=== PATIENT | male | born 1935 | race Caucasian/White ===

== ENCOUNTER → 2016-12-19 | Outpatient (CLI) | payer MEDICARE, OTHER ==
--- NOTE | 2016-12-19 09:11 | XR ---
EXAMINATION TYPE: XR chest 2V DATE OF EXAM: 12/19/2016 COMPARISON: 12/07/2014 TECHNIQUE: PA and lateral views submitted. HISTORY: Productive cough FINDINGS: The lungs are clear and there is no pneumothorax, pleural effusion, or focal pneumonia. Hyperinflat ion suggests COPD. Scoliotic curvature the spine noted and there is biapical pleural thickening and l ikely bullous disease. Arthropathy of the shoulders. Degenerative changes of the spine noted. Ill-def ined nodule in the right suprahilar region. IMPRESSION: 1. Findings are suggestive of COPD no definite acute infiltrate. Ill-defined nodule right suprahilar region. This could be related to superimposed structures however, recommend CT chest.
== END ==
LOC: RADXRMAIN 08:47
PROVIDERS: ATTEND Family Medicine
DX: R61 Generalized hyperhidrosis (principal)
CPT/HCPCS: 71020

== ENCOUNTER → 2016-12-31 | Outpatient (CLI) | payer MEDICARE, OTHER ==
--- NOTE | 2016-12-31 10:36 | CT ---
EXAMINATION TYPE: CT abdomen pelvis wo con DATE OF EXAM: 12/31/2016 COMPARISON: Prior CT abdomen pelvis 09/16/2010 HISTORY: Kidney stone CT DLP: 298.40 mGycm Automated exposure control for dose reduction was used. TECHNIQUE: Helical acquisition of images from the lung bases through the pelvis. FINDINGS: LUNG BASES: No significant abnormality is appreciated. AORTA: Abdominal aorta measures approximately 3.3 cm in the infrarenal location shows atheromatous c hange. Lack of contrast could compromise sensitivity. LIVER/GB: No significant abnormality is appreciated. PANCREAS: No significant abnormality is seen. SPLEEN: No significant abnormality is seen. ADRENALS: No significant abnormality is seen. KIDNEYS: There are punctate calcifications bilaterally, approximately 3-4 on the right, lower pole ca lculus on the left all measuring only 1 to 2 mm in size. No ureteral calcification or hydronephrosis. REPRODUCTIVE ORGANS: Prostate is enlarged. URINARY BLADDER: Urinary bladder shows wall thickening possibly due to chronic bladder outlet obstru ction. BOWEL: Extensive diverticular changes associated with the sigmoid colon. No evident bowel obstructio n. FREE AIR: No Free Air is visible. ASCITES: None visible. PELVIC ADENOPATHY: None visualized. RETROPERITONEAL ADENOPATHY: No Retroperitoneal Adenopathy visible. OSSEOUS STRUCTURES: Degenerative disc changes in the visualized spine. External iliac artery on the right is decreased in size. IMPRESSION: BILATERAL NONOBSTRUCTIVE NEPHROLITHIASIS IS SUSPECTED. INFRARENAL ABDOMINAL AORTIC ECTASIA. FOLLOW-UP SUGGESTED. NONCONTRAST EXAM. DIVERTICULOSIS. There may be an occlusion involving the pelvic arterial supply on the right.
== END | disposition home or self-care (01) ==
LOC: RADCTMAIN 08:23
PROVIDERS: ATTEND Family Medicine
DX: K57.30 Diverticulosis of large intestine without perforation or abscess without bleeding (principal); I77.811 Abdominal aortic ectasia
CPT/HCPCS: 74176

== ENCOUNTER 2023-10-14 22:00 | Inpatient (IN) | payer MEDICARE, OTHER ==
--- NOTE | 2023-10-14 22:28 | ED ---
General Adult HPI - General Stated complaint: GEE Time Seen by Provider: 10/14/23 22:02 - History of Present Illness Initial comments: Dictation was produced using [employer] dictation software. please excuse any grammatical, word or spelling errors. Chief Complaint: 87-year-old male presents to the emergency department for hypoxia History of Present Illness: 87-year-old male brought in from home by EMS. Apparently there was a wellness check that was called on behalf of patient. Patient was eval by EMS found to be hypoxic. Patient lives at home by himself he has history of dementia. Continues to smoke has history of COPD wears 3 L nasal cannula at baseline. Patient denies any acute complaints states that he does feel short of breath. Denies any cough. Denies any fever or constitutional symptoms. Per EMS patient was hypoxic into the 80s on his usual home oxygen. The ROS documented in this emergency department record has been reviewed and confirmed by me. Those systems with pertinent positive or negative responses have been documented in the HPI. All other systems are other negative and/or noncontributory. - Related Data Allergies Allergy/AdvReac Type Severity Reaction Status Date / Time No Known Allergies Allergy Verified 10/14/23 22:52 Review of Systems ROS Statement: Those systems with pertinent positive or pertinent negative responses have been documented in the HPI. ROS Other: All systems not noted in ROS Statement are negative. General Exam - General Exam Comments Initial Comments: PHYSICAL EXAM: General Impression: Alert and oriented x3, not in acute distress HEENT: Normocephalic atraumatic, extra-ocular movements intact, pupils equal and reactive to light bilaterally, mucous membranes moist. Cardiovascular: Heart regular rate and rhythm Chest: Diffuse wheezing Abdomen: abdomen soft, non-tender, non-distended, no organomegaly Musculoskeletal: Pulses present and equal in all extremities, no peripheral ed catrachito Motor: no focal deficits noted Neurological: CN II-XII grossly intact, no focal motor or sensory deficits noted Skin: Intact with no visualized rashes Psych: Normal affect and mood Course Vital Signs 10/14/23 10/14/23 10/14/23 22:28 22:40 23:16 Temperature 97.6 F Pulse Rate 75 79 87 Respiratory 24 Rate Blood Pressure 149/88 O2 Sat by Pulse 93 L Oximetry 10/15/23 00:33 Temperature Pulse Rate 80 Respiratory 22 Rate Blood Pressure 131/61 O2 Sat by Pulse 80 L Oximetry - Reevaluation(s) Reevaluation #1: 10/15/23 02:16 Case discussed with nephrology on-call, Dr. Wills. Labs and clinical presentation discussed. Dr. Wills requested that BMP be repeated 2 hours after hyperkalemia cocktail and that he will be called with the results of repeat BMP. EKG Findings - EKG Comments: EKG Findings:: My EKG interpretation: Ventricular rate 75, right bundle branch block,. Will 227, cures 143, QTc 417. No MT prolongation, no QTC prolongation, no ST or T-wave changes noted. No old EKG for comparison. Medical Decision Making - Medical Decision Making Was pt. sent in by a medical professional or institution (, PA, LUBRICATION WORKER, urgent care, hospital, or shelter...) When possible be specific @ -No Did you speak to anyone other than the patient for history (EMS, parent, family, police, friend...)? What history was obtained from this source @ -No Did you review nursing and triage notes (agree or disagree)? Why? @ -I reviewed and agree with nursing and triage notes Were old charts reviewed (outside hosp., previous admission, EMS record, old EKG, old radiological studies, urgent care reports/EKG's, shelter records)? Report findings @ -No old charts were reviewed Differential Diagnosis (chest pain, altered mental status, abdominal pain women, abdominal pain men, vaginal bleeding, musculoskeletal, weakness, fever, dyspnea, syncope, headache, dizziness, GI bleed, back pain, seizure, CVA, palpatations, mental health)? @ -Differential Dyspnea: Coronary syndrome, arrhythmia, tamponade, asthma, COPD, pulmonary embolism, pneumonia, pneumothorax, pulmonary effusion, anaphylaxis, diabetic ketoacidosis, flailed chest, pulmonary contusion, diaphragmatic rupture, anemia, neuromuscular, this is not meant to be an all-inclusive list. EKG interpreted by me (3pts min.). @ -See above X-rays interpreted by me (1pt min.). @ -X-ray shows pleural effusion to the right lung base pulmonary edema CT interpreted by me (1pt min.). @ -None done U/S interpreted by me (1pt. min.). @ -None done What testing was considered but not performed or refused? (CT, X-rays, U/S, labs)? Why? @ -None What meds were considered but not given or refused? Why? @ -None Did you discuss the management of the patient with other professionals (professionals i.e. , PA, LUBRICATION WORKER, lab, RT, psych nurse, social human services assistants, physical medicine teacher, teacher, systems support officer, skilled nursing case manager)? Give summary @ -see above Was smoking cessation discussed for >3mins.? @ -No Was critical care preformed (if so, how long)? @ -Yes, 33 minutes Were there social determinants of health that impacted care today? How? (Homelessness, low income, unemployed, alcoholism, drug addiction, transportation, low edu. Level, literacy, decrease access to med. care, residential, rehab)? @ -No Was there de-escalation of care discussed even if they declined (Discuss DNR or withdrawal of care, Hospice)? DNR status @ -No What co-morbidities impacted this encounter? (DM, HTN, Smoking, COPD, CAD, Cancer, CVA, ARF, Chemo, Hep., AIDS, mental health diagnosis, sleep apnea, morbid obesity)? @ -None Was patient admitted / discharged? Hospital course, mention meds given and route, prescriptions, significant lab abnormalities, going to OR and other pertinent info. @ -87-year-old male presents to the emergency department after being found dyspneic hypoxic wellness tract by EMS. Vital signs upon arrival are within acceptable limits. Laboratory evaluation obtained. CBC within acceptable limits. Metabolic panel shows potassium of 8.1, creatinine of 6.62 with a BUN of 67. Acidotic with a bicarb of 12. Elevated troponin 0.049 with BNP of 36,500. Viral testing is negative. Chest x-ray shows findings concerning for heart failure. Case discussed with nephrology who will be on board. Patient given hyperkalemia cocktail. Patient admitted with consultation to nephrology and pulmonology. Undiagnosed new problem with uncertain prognosis? @ -No Drug Therapy requiring intensive monitoring for toxicity (Heparin, Nitro, Insulin, Cardizem)? @ -No Were any procedures done? @ -No Diagnosis/symptom? Acute, or Chronic, or Acute on Chronic? Uncomplicated (without systemic symptoms) or Complicated (systemic symptoms)? @ -1. Acute kidney injury complicated by hyperkalemia, 2. COPD exacerbation with hypoxic respiratory failure Side effects of treatment? @ -No Exacerbation, Progression, or Severe Exacerbation? @ -No Poses a threat to life or bodily function? How? (Chest pain, USA, MS, pneumonia, PE, COPD, DKA, ARF, appy, cholecystitis, CVA, Diverticulitis, Homicidal, Delores cidal, threat to staff... and all critical care pts) @ -yes - Lab Data Result diagrams: 10/14/23 22:06 10/14/23 23:59 Lab Results 10/14/23 10/14/23 10/14/23 Range/Units 22:06 22:06 22:06 WBC 6.2 (3.8-10.6) k/uL RBC 2.81 L (4.30-5.90) m/uL Hgb 8.8 L (13.0-17.5) gm/dL Hct 30.6 L (39.0-53.0) % MCV 108.9 H (80.0-100.0) fL MCH 31.2 (25.0-35.0) pg MCHC 28.6 L (31.0-37.0) g/dL RDW 15.1 (11.5-15.5) % Plt Count 141 L (150-450) k/uL MPV 8.7 Neutrophils % 81 % Lymphocytes % 10 % Monocytes % 6 % Eosinophils % 1 % Basophils % 0 % Neutrophils # 5.0 (1.3-7.7) k/uL Lymphocytes # 0.6 L (1.0-4.8) k/uL Monocytes # 0.4 (0-1.0) k/uL Eosinophils # 0.1 (0-0.7) k/uL Basophils # 0.0 (0-0.2) k/uL Manual Slide Review Performed Hypochromasia Marked Macrocytosis Marked A Sodium 140 (137-145) mmol/L Potassium 8.1 H* (3.5-5.1) mmol/L Chloride 117 H (98-107) mmol/L Carbon Dioxide 12 L (22-30) mmol/L Anion Gap 11 mmol/L BUN 67 H (9-20) mg/dL Creatinine 6.62 H (0.66-1.25) mg/dL Est GFR (CKD-EPI)AfAm 8 (>60 ml/min/1.73 sqM) Est GFR (CKD-EPI)NonAf 7 (>60 ml/min/1.73 sqM) Glucose 109 H (74-99) mg/dL Plasma Lactic Acid Alex 1.1 (0.7-2.0) mmol/L Calcium 8.0 L (8.4-10.2) mg/dL Magnesium 2.5 H (1.6-2.3) mg/dL Troponin I (0.000-0.034) ng/mL NT-Pro-B Natriuret Pep 51205 pg/mL Influenza Type A (PCR) (Not Detectd) Influenza Type B (PCR) (Not Detectd) RSV (PCR) (Not Detectd) SARS-CoV-2 (PCR) (Not Detectd) 10/14/23 10/14/23 10/14/23 Range/Units 22:06 22:56 23:59 WBC (3.8-10.6) k/uL RBC (4.30-5.90) m/uL Hgb (13.0-17.5) gm/dL Hct (39.0-53.0) % MCV (80.0-100.0) fL MCH (25.0-35.0) pg MCHC (31.0-37.0) g/dL RDW (11.5-15.5) % Plt Count (150-450) k/uL MPV Neutrophils % % Lymphocytes % % Monocytes % % Eosinophils % % Basophils % % Neutrophils # (1.3-7.7) k/uL Lymphocytes # (1.0-4.8) k/uL Monocytes # (0-1.0) k/uL Eosinophils # (0-0.7) k/uL Basophils # (0-0.2) k/uL Manual Slide Review Hypochromasia Macrocytosis Sodium (137-145) mmol/L Potassium 7.4 H* (3.5-5.1) mmol/L Chloride (98-107) mmol/L Carbon Dioxide (22-30) mmol/L Anion Gap mmol/L BUN (9-20) mg/dL Creatinine (0.66-1.25) mg/dL Est GFR (CKD-EPI)AfAm (>60 ml/min/1.73 sqM) Est GFR (CKD-EPI)NonAf (>60 ml/min/1.73 sqM) Glucose (74-99) mg/dL Plasma Lactic Acid Alex (0.7-2.0) mmol/L Calcium (8.4-10.2) mg/dL Magnesium (1.6-2.3) mg/dL Troponin I 0.049 H* (0.000-0.034) ng/mL NT-Pro-B Natriuret Pep pg/mL Influenza Type A (PCR) Not Detected (Not Detectd) Influenza Type B (PCR) Not Detected (Not Detectd) RSV (PCR) Not Detected (Not Detectd) SARS-CoV-2 (PCR) Not Detected (Not Detectd) Disposition Clinical Impression: NAILA (acute kidney injury), Hyperkalemia, COPD exacerbation Disposition: ADMITTED IP TO THIS HOSP Condition: Critical Referrals: None,Stated [REFERRING] - 1-2 days Decision Time: 02:20
[2023-10-14] MEDS: ALBUTEROL NEBULIZED 2.5 MG/3 ML INHALATION STA (22:39)
[2023-10-14] MEDS: IPRATROPIUM 0.5 MG/2.5 ML NEBU INHALATION STA (22:39)
[2023-10-14 22:49] LABS: Basophils % (A) 0 %; Eosinophils # (A) 0.1 k/uL (0-0.7); Eosinophils % (A) 1 %; HCT 30.6 % (39.0-53.0); HGB 8.8 gm/dL (13.0-17.5); Hypochromasia Marked; Lymphocytes # (A) 0.6 k/uL (1.0-4.8); Lymphocytes % (A) 10 %; MCH 31.2 pg (25.0-35.0); MCHC 28.6 g/dL (31.0-37.0); MCV 108.9 fL (80.0-100.0); Macrocytosis Marked; Mean Platelet Volume 8.7; Monocytes # (A) 0.4 k/uL (0-1.0); Monocytes % (A) 6 %; Neutrophils % (A) 81 %; Platelet Count 141 k/uL (150-450); RBC 2.81 m/uL (4.30-5.90); RDW 15.1 % (11.5-15.5); WBC 6.2 k/uL (3.8-10.6)
[2023-10-14] MEDS: DEXAMETHASONE SOD PHOSPHATE 10 MG/ML 1 ML VIAL IV STA (23:04)
[2023-10-14 23:17] LABS: African American GFR (CKD) 8 (>60 ml/min/1.73 sqM); Anion Gap 11 mmol/L; Blood Urea Nitrogen 67 mg/dL (9-20); Carbon Dioxide 12 mmol/L (22-30); Chloride 117 mmol/L (98-107); Glucose 109 mg/dL (74-99); Non-African American GFR(CKD) 7 (>60 ml/min/1.73 sqM); Sodium 140 mmol/L (137-145)
[2023-10-14 23:37] LABS: Magnesium 2.5 mg/dL (1.6-2.3); Potassium 8.1 mmol/L (3.5-5.1)
[2023-10-15 00:24] LABS: NT-Pro-B-Type Natriuretic Pept 36500 pg/mL
[2023-10-15] MEDS ORDERED: NALOXONE 0.4 MG/ML 1 ML VIAL IV PRN (02:15)
--- NOTE | 2023-10-15 02:23 | XR ---
EXAM: XR Chest, 2 Views CLINICAL HISTORY: ITS.REASON XR Reason: hypoxia TECHNIQUE: Frontal and lateral views of the chest. COMPARISON: CXR 12/19/2016. FINDINGS: Lungs: See below. Pleural space: Small bilateral pleural effusions. Pulmonary vascular congestion. Cardiomegaly. Findings are consistent with congestive heart failure. No pneumothorax. Heart: See above. Mediastinum: Unremarkable. Normal mediastinal contour. Bones/joints: Unremarkable. No acute fracture. IMPRESSION: Small bilateral pleural effusions. Pulmonary vascular congestion. Cardiomegaly. Findings are consistent with congestive heart failure.
[2023-10-15] MEDS: ALBUTEROL NEB (CONC) 2.5 MG/0.5 ML INHALATION ONE (03:10)
[2023-10-15] MEDS: INSULIN REGULAR 100 UNIT/ML VIAL (IV) IV ONE ×2 (04:08→23:20)
[2023-10-15] MEDS: DEXTROSE 50% SYRINGE 50 ML IVP ONE (04:12)
[2023-10-15] MEDS: SODIUM ZIRCONIUM CYCLOSILICATE 10 GM PACKET PO ONE ×2 (04:13→23:22)
[2023-10-15] MEDS: CALCIUM GLUCONATE IN NACL 1 GM in SALINE 1 100ML.BAG IVPB ONE ×2 (04:13→23:21)
[2023-10-15] MEDS: SODIUM CHLORIDE 0.9% 500 ML 500 ML IV STA (04:14)
[2023-10-15] MEDS: SODIUM BICARB 8.4% 50 ML SYR (1 MEQ/ML) IV STA ×3 (04:14→23:21)
[2023-10-15] MEDS: SODIUM CHLORIDE 0.9% 1,000 ML IV SCH (04:14)
--- NOTE | 2023-10-15 06:17 | P.CNPUL ---
History of Present Illness Consult date: 10/15/23 Requesting physician: Markus Urban Reason for consult: COPD Chief complaint: Shortness of breath History of present illness: Patient is an 87-year-old male with past medical history significant for COPD, chronic hypoxemic respiratory failure, hypertension, and kidney stones. He is quite upset to be in the hospital at this time, and he wants to go home. He reportedly lives by himself, and a neighbor had called for a wellbeing check yesterday evening. When EMS arrived, he was found to be hypoxic with an SpO2 of in the low 80s on his baseline 3 L/min nasal cannula. EMS then brought the patient to the emergency department. Patient was found to be in acute renal failure and severely hyperkalemic. BMP: Sodium 140, potassium 8.1, chloride 117, serum bicarb 12, BUN 67, creatinine 6.62, glucose 109. Lactic acid 1.1. Magnesium 2.5. Troponin 0.049. NT proBNP 36,500. CBC: WBC count 6.2, hemoglobin 8.8, hematocrit 30.6, platelets 141. Chest x-ray demonstrates cardiomegaly with pulmonary vascular congestion, small bilateral pleural effusions, and interstitial edema. Since his initial ER presentation, his oxygen demands increased and currently on 8 L/min high flow nasal cannula. He is alert and fully oriented, and currently refusing treatment. He is actually telling me that he is going to call a cab and leave this facility. He has not received any correction for his critically elevated potassium yet. ECG showing normal sinus rhythm with first-degree AV block and hyperacute T waves. I have repeatedly explained how critical his situation is, that if he were to leave at this time, he would likely had a cardiac arrest. He called his son, and I did speak to his son on the telephone about his father's critical condition. He is going to come up to the hospital and see his father. His son is encouraging him to stay in the hospital over the phone. After this, the patient has been more receptive to this interview and my questions. He states that he had kidney stones approximately 3 years ago. Denies NSAID use. Denies any trouble urinating such as dysuria, urinary frequency, hematuria, flank pain. Denies having an enlarged prostate. [id number] bladder scan reveals a minimal amount of urine, 140 cc. Patient is refusing urinary catheter. Nephrology has been consulted for management of his renal failure and hyperkalemia. As far as the patient's respiratory status. He states that has been getting worse over the last couple days, which he attributes to the heat outside. Denies any infectious-like symptoms such as fever, rhinorrhea, sore throat, cough, sputum production, hemoptysis. Denies any nausea or vomiting, diarrhea, or abdominal pain. He has been traveling by car [id number] to [place] over the last several weeks. Denies chest pain. Denies lower extremity swelling. He is audibly wheezing on examination. Does use inhalers and nebulizer at home, but is unsure of medications or doses. Reportedly a current smoker, approximately 1/2 to 1 ppd. Overall prognosis is guarded. Review of Systems REVIEW OF SYSTEMS: CONSTITUTIONAL: Denies any recent significant weight loss or weight gain. EYES: Denies change in vision. EARS, NOSE, MOUTH, THROAT: Denies headaches, denies sore throat. CARDIOVASCULAR: Denies chest pain, palpitations or syncopal episodes. RESPIRATORY: See HPI. GASTROINTESTINAL: Denies change in appetite, abdominal pain, nausea and vomiting, or diarrhea GENITOURINARY: Denies hematuria, denies infections. MUSKULOSKELETAL: Admits chronic lumbar back pain. INTEGUMENTARY: Denies rash, denies eczema. NEUROLOGICAL: Denies recent memory loss, no recent seizure activity. PSYCHIATRIC: Denies anxiety, denies depression. HEMATOLOGIC/LYMPHATIC: Denies anemia, denies enlarged lymph node Past Medical History Past Medical History: COPD Additional Past Medical History / Comment(s): smoker History of Any Multi-Drug Resistant Organisms: None Reported Smoking Status: Current every day smoker Past Alcohol Use History: None Reported Past Drug Use History: None Reported Medications and Allergies Allergies Allergy/AdvReac Type Severity Reaction Status Date / Time No Known Allergies Allergy Verified 10/14/23 22:52 Physical Exam Vitals: Vital Signs Temp Pulse Resp BP Pulse Ox 10/15/23 03:33 80 10/15/23 03:10 76 10/15/23 00:33 80 22 131/61 80 L 10/14/23 23:16 87 10/14/23 22:40 79 10/14/23 22:28 97.6 F 75 24 149/88 93 L Intake and Output 10/14/23 10/14/23 10/15/23 14:59 22:59 06:59 Other: Weight 61.235 kg GENERAL EXAM: Alert, 87-year-old male, appears visually upset HEAD: Normocephalic and atraumatic EYES: Normal reaction of pupils, equal size. NOSE: Clear with pink turbinates. THROAT: No erythema or exudates. NECK: No masses, no JVD. CHEST: No chest wall deformity. LUNGS: Equal air entry with diffuse bilateral wheezing. On 8 L/min high flow nasal cannula. No conversational dyspnea or accessory muscle use while at rest CVS: S1 and S2 normal with no audible murmur, regular rhythm. No extra heart sounds ABDOMEN: No hepatosplenomegaly, active bowel sounds, no guarding or rigidity. SPINE: No scoliosis or deformity. No CVA tenderness. SKIN: No rashes CENTRAL NERVOUS SYSTEM: Alert and fully oriented to person, place, time, and situation. No focal deficits, tone is normal in all 4 extremities. EXTREMITIES: There is mild bilateral nonpitting lower extremity edema. No clubbing, or cyanosis. Peripheral pulses are intact. Results - Laboratory Findings CBC and BMP: 10/14/23 22:06 10/14/23 23:59 Abnormal lab findings: Abnormal Labs 10/14/23 10/14/23 10/14/23 22:06 22:06 22:06 RBC 2.81 L Hgb 8.8 L Hct 30.6 L MCV 108.9 H MCHC 28.6 L Plt Count 141 L Lymphocytes # 0.6 L Macrocytosis Marked A Potassium 8.1 H* Chloride 117 H Carbon Dioxide 12 L BUN 67 H Creatinine 6.62 H Glucose 109 H Calcium 8.0 L Magnesium 2.5 H Troponin I 0.049 H* 10/14/23 23:59 RBC Hgb Hct MCV MCHC Plt Count Lymphocytes # Macrocytosis Potassium 7.4 H* Chloride Carbon Dioxide BUN Creatinine Glucose Calcium Magnesium Troponin I - Diagnostic Findings Chest x-ray: image reviewed Assessment and Plan Assessment: Acute on chronic hypoxemic respiratory failure secondary to fluid overload and acute COPD exacerbation. Chest x-ray demonstrates cardiomegaly with pulmonary vascular congestion, small bilateral pleural effusions, and interstitial edema. Chronic obstructive pulmonary disease Chronic hypoxemic respiratory failure, secondary to above, normally made on 2-3 L/min nasal cannula Current ongoing tobacco dependence Acute kidney injury/failure Acute severe non-anion gap metabolic acidosis, secondary to above Severe hyperkalemia, with EKG changes, treatment is ordered Elevated troponins, in the setting of acute renal failure Anemia, unsure of chronicity, patient denies any overt blood loss History of kidney stones Plan: Patient is now much more receptive to care, and his son is on his way to the hospital. Severe hyperkalemia has been treated with 10 units regular insulin, 1 amp D50 W, 2 amp sodium bicarbonate, 10 mg Lokelma, 1 g calcium gluconate, and concentrated albuterol nebulization. Repeat BMP is pending. May need HD and/or ICU management if no improvement. Nephrology is managing. Obtain ultrasound of the bladder and renals Obtain urinalysis Avoid nephrotoxic agents. Echocardiogram ordered Monitor telemetry Continue supplemental oxygen to maintain oxygen saturation of 88% or greater. Start patient on DuoNebs [id number], Symbicort inhaler, and IV Solu-Medrol Smoking cessation counseling attempted, but patient not receptive at this time. Prognosis is guarded. I have thoroughly explained to the patient his critical condition. If he leaves without treatment, will likely have a life-threatening event, such as cardiac arrest. I have personally seen and examined the patient, performed the documentation and the assessment and plan as written. Number of minutes spent on the visit:20 Time with Patient: Greater than 30
[2023-10-15 07:18] LABS: Appearance,Urine Cloudy (Clear); Bilirubin,Urine Negative (Negative); Blood,Urine Small (Negative); Color,Urine Colorless; Glucose,Urine (UA) 2+ (Negative); Hyaline Casts,Urine 3 /lpf (0-2); Ketones,Urine Trace (Negative); Leukocyte Esterase,Urine Small (Negative); Mucus,Urine Rare /hpf; Nitrite,Urine Negative (Negative); Protein,Urine 3+ (Negative); RBC,Urine 3 /hpf (0-5); Specific Gravity,Urine 1.015 (1.001-1.035); Squamous Epithelial Cell,Urine <1 /hpf (0-4); Urobilinogen,Urine <2.0 mg/dL (<2.0); WBC,Urine 20 /hpf (0-5)
[2023-10-15 07:34] LABS: African American GFR (CKD) 16 (>60 ml/min/1.73 sqM); Anion Gap 7 mmol/L; Blood Urea Nitrogen 43 mg/dL (9-20); Chloride 128 mmol/L (98-107); Glucose 63 mg/dL (74-99); Non-African American GFR(CKD) 13 (>60 ml/min/1.73 sqM); Sodium 140 mmol/L (137-145)
[2023-10-15] MEDS: SYMBICORT 160-4.5 MCG INHALER INHALATION SCH (07:41)
[2023-10-15] MEDS: IPRATROPIUM-ALBUTEROL 3 ML NEB INHALATION SCH (07:41)
[2023-10-15 08:09] LABS: Calcium 5.3 mg/dL (8.4-10.2); Carbon Dioxide 5 mmol/L (22-30)
--- NOTE | 2023-10-15 08:19 | US ---
EXAMINATION TYPE: US renals and bladder DATE OF EXAM: 10/15/2023 COMPARISON: NONE CLINICAL INDICATION: Male, 87 years old with history of acute kidney injury; NAILA EXAM MEASUREMENTS: Right Kidney: 9.1 x 3.3 x 3.2 cm Left Kidney: 8.2 x 3.0 x 2.8 cm *Patient scanned in chair Right Kidney: no evidence of hydronephrosis Left Kidney: small in size. Anechoic lesion lower pole = 1.0 x 0.9 x 1.0cm Bladder: appears wnl Bilateral Jets seen: no There is no evidence for hydronephrosis at this point in time. No nephrolithiasis is seen. No daron s are identified. The urinary bladder is anechoic. Bilateral ureteral jets are seen. Cortical medullary differentiation is maintained. IMPRESSION: 1. No evidence for acute process. 2. Left renal cortical cyst.
[2023-10-15] MEDS: DEXTROSE 5% IN WATER 1,000 ML with SODIUM BICARB (1 MEQ/ML) 150 ML IV SCH (09:10)
[2023-10-15] MEDS: PANTOPRAZOLE 40 MG/10 ML VIAL IV SCH (09:10)
[2023-10-15] MEDS: FUROSEMIDE 10 MG/ML 4 ML VIAL IV STA (09:10)
[2023-10-15] MEDS: methylPREDNISolone SOD SUCCI 40 MG/ML 1 ML VIAL IV SCH (09:10)
--- NOTE | 2023-10-15 10:17 | P.NPCON ---
History of Present Illness - Reason for Consult acute renal failure, chronic renal failure - History of Present Illness Reason for consultation: Acute kidney injury History of present illness: Patient is 87-year-old male seen in renal consultation for acute kidney injury. Patient's creatinine in November 2014 was 1.91. This admission it was elevated at 6.62 and is 3.81 today. Patient's potassium level was elevated at 8.1 and is improved to 5.0 today. Patient remains acidotic with a bicarb level of 5 today. Patient did receive a liter of normal saline bolus and then received dose of 40 mg IV Lasix this morning. Chest x-ray suggestive of vascular congestion. Patient lives by himself and was brought to the hospital by the EMS after wellbeing check called by neighbor. Patient was found to be hypoxic with oxygen saturation near 80% and was brought to the hospital. Patient is unsure of the medications he takes. Patient is quite adamant that he only wants to go home. He refused Brown catheter placement last night. I do not see any NSAIDs on his home medication list. He was on lisinopril as well as amlodipine for hypertension which are both currently held. Blood pressure this morning was 119/59. He is currently on high flow nasal cannula. No vomiting or diarrhea. Denies gross hematuria or dysuria. Vital signs are stable. General: No acute distress. HEENT: Head exam is unremarkable. On nasal cannula. LUNGS: No audible rhonchi or wheezes. HEART: Rate and Rhythm are regular. ABDOMEN: Nontender. EXTREMITITES: No edema. Past Medical History Past Medical History: COPD Additional Past Medical History / Comment(s): smoker History of Any Multi-Drug Resistant Organisms: None Reported Smoking Status: Current every day smoker Past Alcohol Use History: None Reported Past Drug Use History: None Reported Medications and Allergies Home Medications Medication Instructions Recorded Confirmed Type Fluticasone Nasal [place] [Flonase 1 spray EA NOSTRIL DAILY 10/15/23 10/15/23 History Nasal [place]] Formoterol Fumarate [Perforomist] 20 mcg INHALATION RT-BID 10/15/23 10/15/23 History amLODIPine [Norvasc] 5 mg PO DAILY 10/15/23 10/15/23 History lisinopriL 30 mg PO DAILY 10/15/23 10/15/23 History Allergies Allergy/AdvReac Type Severity Reaction Status Date / Time No Known Allergies Allergy Verified 10/15/23 07:41 Physical Exam Vitals: Vital Signs Temp Pulse Resp BP Pulse Ox 10/15/23 09:13 98.4 F 81 25 H 119/59 92 L 10/15/23 07:53 83 10/15/23 07:44 86 92 L 10/15/23 06:00 68 23 91 L 10/15/23 05:03 22 10/15/23 05:00 85 20 136/64 91 L 10/15/23 04:00 81 24 131/61 92 L 10/15/23 03:33 80 10/15/23 03:10 76 10/15/23 02:00 76 22 90 L 10/15/23 01:00 79 24 90 L 10/15/23 00:33 80 22 131/61 80 L 10/14/23 23:16 87 10/14/23 22:40 79 10/14/23 22:28 97.6 F 75 24 149/88 93 L Intake and Output 10/14/23 10/15/23 10/15/23 22:59 06:59 14:59 Output Total 350 Balance -350 Output: Urine 350 Other: Weight 61.235 kg Results - Lab Results Most recent lab results Calcium 5.3 mg/dL (8.4-10.2) L* 10/15/23 07:00 Magnesium 2.5 mg/dL (1.6-2.3) H 10/14/23 22:06 10/14/23 22:06 10/15/23 07:00 Assessment and Plan Plan: Assessment: 1. Acute kidney injury secondary to ATN. Creatinine 6.62 on admission and is 3.813. Creatinine in November 2014 was 1.9. No hydronephrosis noted on kidney ultrasound. Left kidney atrophic. 2. Metabolic acidosis secondary to acute kidney injury and IV fluids. 3. Hyperkalemia secondary to acute kidney injury, acidosis and lisinopril. Improved with medical management. 4. Hypocalcemia secondary to acute kidney injury. 5. Benign hypertension. Plan: Start bicarb drip at 50 cc an hour. 4 A of sodium bicarb IV push now. Status post IV Lasix this morning. Monitor bladder scans to make sure no urinary retention. Patient refusing Brown catheter placement. Follow-up echocardiogram. Continue to monitor renal function and urine output. 2 g IV calcium gluconate today. Thank you for the consultation. I will continue to follow the patient with you during his hospital stay.
[2023-10-15 10:20] LABS: Glucose,Whole Blood 184 mg/dL (70-110)
[2023-10-15] MEDS: CALCIUM GLUCONATE IN NACL 2 GM in SALINE 1 100ML.BAG IVPB ONE (10:31)
[2023-10-15 10:49] LABS: Alkaline Phosphatase 29 U/L (38-126); Total Bilirubin 0.4 mg/dL (0.2-1.3)
[2023-10-15 10:55] LABS: Total Protein 4.4 g/dL (6.3-8.2)
[2023-10-15 10:56] LABS: ALT 10 U/L (4-49); AST 19 U/L (17-59); Albumin 2.1 g/dL (3.5-5.0); Magnesium 1.6 mg/dL (1.6-2.3)
[2023-10-15 11:14] LABS: INR 0.9 (<1.2); Prothrombin Time 10.4 sec (10.0-12.5)
--- NOTE | 2023-10-15 11:17 | CA ---
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 18 - 58 / 22 - 52 cm??? LA Volume Index 45.7 cm???/m??? 16 - 28 cm???/m??? M-MODE Aortic Root Diameter MM 3.5 cm LA Systolic Diameter MM 5.6 cm LA Ao Ratio MM 1.6 AV Cusp Separation MM 1.7 cm DOPPLER AV Peak Velocity 275.0 cm/s AV Peak Gradient 30.3 mmHg AV Mean Velocity 182.1 cm/s AV Mean Gradient 15.0 mmHg AV Velocity Time Integral 52.7 cm LVOT Peak Velocity 115.8 cm/s LVOT Peak Gradient 5.4 mmHg LVOT Velocity Time Integral 23.5 cm LVOT Stroke Volume 89.7 cm??? LVOT Stroke Volume Index 51.3 ml/m??? AV Area Cont Eq vti 1.7 cm??? AV Area Cont Eq pk 1.6 cm??? MV Area PHT 4.6 cm??? Mitral E Point Velocity 156.4 cm/s Mitral A Point Velocity 128.7 cm/s Mitral E to A Ratio 1.2 MV Deceleration Time 163.4 ms MV E' Velocity 6.5 cm/s Mitral E to MV E' Ratio 24.2 TR Peak Velocity 316.9 cm/s TR Peak Gradient 40.2 mmHg Right Ventricular Systolic Press 42.3 mmHg FINDINGS Left Ventricle Mildly impaired LV function with EF between 40 to 45% Right Ventricle Right ventricular dilatation. Mild pulmonary hypertension. Right Atrium Mild right atrial dilatation. Left Atrium Moderately increased left atrial volume. Mildly increased left atrial area. Mitral Valve Structurally normal mitral valve. Mitral valve thickened. Mild mitral annular calcification. Moderate mitral regurgitation. Aortic Valve Trileaflet aortic valve. No aortic valve stenosis or regurgitation. Thickened aortic valve without stenosis. Tricuspid Valve Structurally normal tricuspid valve. [id number] tricuspid regurgitation. Pulmonic Valve Structurally normal pulmonic valve. Trace pulmonic regurgitation. Pericardium Minimal pericardial effusion (normal variant). Aorta Normal size aortic root and proximal ascending aorta. CONCLUSIONS Mildly impaired LV function with EF between 40 to 45% Small circumferential pericardial effusion Previewed by: Dr. Joel Austin MD (Electronically Signed) Final Date: 15 October 2023 11:16
[2023-10-15 11:39] LABS: Glucose,Whole Blood 195 mg/dL (70-110)
[2023-10-15] MEDS ORDERED: Magnesium Replacement Protocol 1 EACH MISC MISCELLANE PRN (12:05)
--- NOTE | 2023-10-15 13:11 | P.HPIM ---
History of Present Illness H&P Date: 10/15/23 History of present illness; patient is a 87-year-old gentleman past medical history significant for COPD, hypertension was brought to the ER for shortness of breath. Patient had a wellness check done on him after neighbors were concerned for his safety. When EMS arrived at this point patient was found to be short of breath. Patient history of COPD and currently uses 3 L of oxygen. Patient stated that he was short of breath for the last few days. Patient also complaining of wheezing. There was no complaint of fever or chills. There is no complaint of nausea, or abdominal pain. Patient denies any recent falls. Patient was initially very resistant to the idea of coming to the hospital. EMS brought patient to [facility] Initial lab work done in the ER showed W6.2, hemoglobin 8.8, platelet count 141, sodium 148, potassium 8.1, BUN 67, creatinine 6.62, troponin 0.049, proBNP 82039 Influenza A not detected Influenza B not detected RSV not detected COVID-19 not detected EKG done in the ER showed heart rate of75 , no ST segment elevation or depression seen, no T-wave inversions seen. Chest x-ray done in the ER showed small bilateral pleural effusion, pulm vascular congestion, cardiomegaly Because of hyperkalemia and acute kidney injury, patient was admitted to ICU under internal medicine service REVIEW OF SYSTEMS: CONSTITUTIONAL: No fever, no malaise, no fatigue. HEENT: No recent visual problems or hearing problems. Denied any sore throat. CARDIOVASCULAR: No chest pain, orthopnea, PND, no palpitations, no syncope. PULMONARY: As mentioned above GASTROINTESTINAL: As mentioned above NEUROLOGICAL: No headaches, no weakness, no numbness. HEMATOLOGICAL: Denies any bleeding or petechiae. GENITOURINARY: Denies any burning micturition, frequency, or urgency. MUSCULOSKELETAL/RHEUMATOLOGICAL: Denies any joint pain, swelling, or any muscle pain. ENDOCRINE: Denies any polyuria or polydipsia. The rest of the 14-point review of systems is negative. PHYSICAL EXAMINATION: GENERAL: The patient is alert and oriented x3, not in any acute distress. Ill looking HEENT: Pupils are round and equally reacting to light. EOMI. No scleral icterus. No conjunctival pallor. Normocephalic, atraumatic. No pharyngeal erythema. No thyromegaly. CARDIOVASCULAR: S1 and S2 present. No murmurs, rubs, or gallops. PULMONARY: Coarse breath sound bilaterally, no wheezing or crackles. ABDOMEN: Soft, nontender, nondistended, normoactive bowel sounds. No palpable organomegaly. MUSCULOSKELETAL: No joint swelling or deformity. EXTREMITIES: No cyanosis, clubbing, or pedal edema. NEUROLOGICAL: Gross neurological examination did not reveal any focal deficits. SKIN: No rashes. Assessment and plan Acute on chronic hypoxemic respiratory failure acute COPD exacerbation. Acute kidney injury Acute CHF Acute severe non-anion gap metabolic acidosis, secondary to above Severe hyperkalemia Elevated troponins, in the setting of acute renal failure Anemia Current ongoing tobacco dependence History of kidney stones Monitor vital signs Monitor CBC Monitor CMP Continue telemetry monitoring Continue oxygen supplementation Strict I's and O's Daily weights Continue breathing treatments Hyperkalemia protocol initiated. Continue IV fluids in the form of bicarb drip DC lisinopril as it might be contributing to hyperkalemia as well as acute kidney injury Ultrasound kidneys ordered Consult nephrology Consult ICU Labs and medication were reviewed.. Continue same treatment. Continue with symptomatic treatment. Resume home medication. Monitor labs and vitals. DVT and GI prophylaxis. Further recommendations as per clinical course of the patient Dictation was produced using [employer] dictation software. please excuse any grammatical, word or spelling errors. Past Medical History Past Medical History: COPD Additional Past Medical History / Comment(s): smoker History of Any Multi-Drug Resistant Organisms: None Reported Smoking Status: Current every day smoker Past Alcohol Use History: None Reported Past Drug Use History: None Reported Medications and Allergies Home Medications Medication Instructions Recorded Confirmed Type Fluticasone Nasal [place] [Flonase 1 spray EA NOSTRIL DAILY 10/15/23 10/15/23 History Nasal [place]] Formoterol Fumarate [Perforomist] 20 mcg INHALATION RT-BID 10/15/23 10/15/23 History amLODIPine [Norvasc] 5 mg PO DAILY 10/15/23 10/15/23 History lisinopriL 30 mg PO DAILY 10/15/23 10/15/23 History Allergies Allergy/AdvReac Type Severity Reaction Status Date / Time No Known Allergies Allergy Verified 10/15/23 07:41 Physical Exam Vitals: Vital Signs Temp Pulse Resp BP Pulse Ox 10/15/23 09:13 98.4 F 81 25 H 119/59 92 L 10/15/23 07:53 83 10/15/23 07:44 86 92 L 10/15/23 06:00 68 23 91 L 10/15/23 05:03 22 10/15/23 05:00 85 20 136/64 91 L 10/15/23 04:00 81 24 131/61 92 L 10/15/23 03:33 80 10/15/23 03:10 76 10/15/23 02:00 76 22 90 L 10/15/23 01:00 79 24 90 L 10/15/23 00:33 80 22 131/61 80 L 10/14/23 23:16 87 10/14/23 22:40 79 10/14/23 22:28 97.6 F 75 24 149/88 93 L Intake and Output 10/14/23 10/15/23 10/15/23 22:59 06:59 14:59 Output Total 350 Balance -350 Output: Urine 350 Other: Weight 61.235 kg Results CBC & Chem 7: 10/14/23 22:06 10/15/23 07:00 Labs: Abnormal Lab Results - Last 24 Hours (Table) 10/14/23 10/14/23 10/14/23 Range/Units 22:06 22:06 22:06 RBC 2.81 L (4.30-5.90) m/uL Hgb 8.8 L (13.0-17.5) gm/dL Hct 30.6 L (39.0-53.0) % MCV 108.9 H (80.0-100.0) fL MCHC 28.6 L (31.0-37.0) g/dL Plt Count 141 L (150-450) k/uL Lymphocytes # 0.6 L (1.0-4.8) k/uL Macrocytosis Marked A Potassium 8.1 H* (3.5-5.1) mmol/L Chloride 117 H (98-107) mmol/L Carbon Dioxide 12 L (22-30) mmol/L BUN 67 H (9-20) mg/dL Creatinine 6.62 H (0.66-1.25) mg/dL Glucose 109 H (74-99) mg/dL Calcium 8.0 L (8.4-10.2) mg/dL Magnesium 2.5 H (1.6-2.3) mg/dL Troponin I 0.049 H* (0.000-0.034) ng/mL Urine Protein (Negative) Urine Glucose (UA) (Negative) Urine Ketones (Negative) Urine Blood (Negative) Ur Leukocyte Esterase (Negative) Urine WBC (0-5) /hpf Hyaline Casts (0-2) /lpf Urine Mucus (None) /hpf 10/14/23 10/15/23 10/15/23 Range/Units 23:59 07:00 07:00 RBC (4.30-5.90) m/uL Hgb (13.0-17.5) gm/dL Hct (39.0-53.0) % MCV (80.0-100.0) fL MCHC (31.0-37.0) g/dL Plt Count (150-450) k/uL Lymphocytes # (1.0-4.8) k/uL Macrocytosis Potassium 7.4 H* (3.5-5.1) mmol/L Chloride 128 H (98-107) mmol/L Carbon Dioxide 5 L* (22-30) mmol/L BUN 43 H (9-20) mg/dL Creatinine 3.81 H (0.66-1.25) mg/dL Glucose 63 L (74-99) mg/dL Calcium 5.3 L* (8.4-10.2) mg/dL Magnesium (1.6-2.3) mg/dL Troponin I (0.000-0.034) ng/mL Urine Protein 3+ H (Negative) Urine Glucose (UA) 2+ H (Negative) Urine Ketones Trace H (Negative) Urine Blood Small H (Negative) Ur Leukocyte Esterase Small H (Negative) Urine WBC 20 H (0-5) /hpf Hyaline Casts 3 H (0-2) /lpf Urine Mucus Rare H (None) /hpf
--- NOTE | 2023-10-15 14:24 | P.CRDCN ---
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 He has a past medical history of hypertension, COPD, tobacco use and dependence. We have been asked to evaluate the patient for CHF. Patient states he has had difficulty breathing that is been ongoing for the past 1 to 2 weeks he thought it was related to the weather change. He is normally not very active and is using a power chair at home. He does have cough with no sputum production. He did have some nausea this morning but no vomiting. He denies any blood in his stool or urine. He states that his legs are weak, no dizziness no syncopal episodes. He denies chest pain. Patient is seen today in the emergency center waiting for a bed on the ICU. Patient is s/p insulin, bicarb, D50, Lokelma and calcium gluconate, as well as, 1 dose of IV Lasix 40 mg. EKG: Sinus rhythm right bundle branch block Chest x-ray: Small bilateral pleural effusions. Pulmonary vascular congestion. Cardiomegaly. Findings consistent with CHF. Renal ultrasound no hydronephrosis. Laboratory studies: WBC 6.2, hemoglobin 8.8. Platelet count 141. Sodium 140, initial potassium 8.1 now down to 5.0. Chloride 117 now 128, CO2 5. BUN 60 7 repeat 43. Creatinine 6.6 to repeat 3.81. Troponin 0.049. proBNP 36,500. Calcium 5.3. Influenza A, influenza B, RSV, COVID-19 not detected. Home cardiac medications: Amlodipine 5 mg daily, lisinopril 30 mg daily Echocardiogram reveals EF 40 to 45%. Small circumferential pericardial effusion. Review Of Systems: At the time of my exam: CONSTITUTIONAL: Denies fever or chills. Reports generalized weakness HEENT: Denies blurred vision, vision changes, or eye pain. Denies hemoptysis CARDIOVASCULAR: Denies chest pain. Denies orthopnea. Denies PND. Denies palpitations RESPIRATORY: Reports dyspnea on exertion reports shortness of breath. Reports cough with sputum production GASTROINTESTINAL: Denies abdominal pain. Denies nausea or vomiting. HEMATOLOGIC: Denies bleeding disorders. GENITOURINARY: Denies any blood in urine. SKIN: Denies puritis. Denies rash. Physical examination: Gen: This is a frail cachectic appearing 87-year-old male VS: reviewed, blood pressure 129/59, heart rate 95, respiratory rate 26, pulse ox 77% on 15 L high flow nasal cannula. HEENT: Head is atraumatic, normocephalic. Pupils equal, round. Sclerae is anicteric. NECK: Supple. No JVD. LUNGS: Decreased air exchange bilaterally. No intercostal retractions. HEART: Regular rate and rhythm. Systolic murmur. ABDOMEN: Soft No tenderness. EXTREMITIES: No pedal edema. No calf tenderness. NEUROLOGICAL: Patient is awake, alert and oriented x3. Assessment: Acute hypoxic and hypercapnic respiratory failure secondary to acute on chronic systolic heart failure Acute kidney injury Metabolic acidosis Severe hyperkalemia Elevated troponin of unclear significance most likely secondary to acute kidney injury Cardiomyopathy of unclear known etiology Thrombocytopenia and anemia COPD Plan: Hold patient's home cardiac medications Continue IV Lasix 40 mg every 12 hours Monitor JAGUAR, daily weights, electrolytes and renal function Start patient on aspirin 81 mg daily and Lipitor 40 mg at bedtime Further recommendations to follow based upon clinical course Thank you kindly for this consultation. Nurse practitioner note has been reviewed, I agree with documented findings and plan of care. Patient was seen and examined. Past Medical History Past Medical History: COPD Additional Past Medical History / Comment(s): smoker History of Any Multi-Drug Resistant Organisms: None Reported Smoking Status: Current every day smoker Past Alcohol Use History: None Reported Past Drug Use History: None Reported Medications and Allergies Home Medications Medication Instructions Recorded Confirmed Type Fluticasone Nasal [place] [Flonase 1 spray EA NOSTRIL DAILY 10/15/23 10/15/23 History Nasal [place]] Formoterol Fumarate [Perforomist] 20 mcg INHALATION RT-BID 10/15/23 10/15/23 History amLODIPine [Norvasc] 5 mg PO DAILY 10/15/23 10/15/23 History lisinopriL 30 mg PO DAILY 10/15/23 10/15/23 History Allergies Allergy/AdvReac Type Severity Reaction Status Date / Time No Known Allergies Allergy Verified 10/15/23 07:41 Physical Exam Vitals: Vital Signs Temp Pulse Resp BP Pulse Ox 10/15/23 07:53 83 10/15/23 07:44 86 92 L 10/15/23 06:00 68 23 91 L 10/15/23 05:03 22 10/15/23 05:00 85 20 136/64 91 L 10/15/23 04:00 81 24 131/61 92 L 10/15/23 03:33 80 10/15/23 03:10 76 10/15/23 02:00 76 22 90 L 10/15/23 01:00 79 24 90 L 10/15/23 00:33 80 22 131/61 80 L 10/14/23 23:16 87 10/14/23 22:40 79 10/14/23 22:28 97.6 F 75 24 149/88 93 L Intake and Output 10/14/23 10/15/23 10/15/23 22:59 06:59 14:59 Output Total 350 Balance -350 Output: Urine 350 Other: Weight 61.235 kg Results 10/14/23 22:06 10/15/23 07:00 Cardiac Enzymes 10/14/23 Range/Units 22:06 Troponin I 0.049 H* (0.000-0.034) ng/mL CBC 10/14/23 Range/Units 22:06 WBC 6.2 (3.8-10.6) k/uL RBC 2.81 L (4.30-5.90) m/uL Hgb 8.8 L (13.0-17.5) gm/dL Hct 30.6 L (39.0-53.0) % Plt Count 141 L (150-450) k/uL Comprehensive Metabolic Panel 10/14/23 10/14/23 10/15/23 Range/Units 22:06 23:59 07:00 Sodium 140 140 (137-145) mmol/L Potassium 8.1 H* 7.4 H* 5.0 (3.5-5.1) mmol/L Chloride 117 H 128 H (98-107) mmol/L Carbon Dioxide 12 L 5 L* (22-30) mmol/L BUN 67 H 43 H (9-20) mg/dL Creatinine 6.62 H 3.81 H (0.66-1.25) mg/dL Glucose 109 H 63 L (74-99) mg/dL Calcium 8.0 L 5.3 L* (8.4-10.2) mg/dL Current Medications Generic Name Dose Route Start Last Admin Trade Name Freq PRN Reason Stop Dose Admin Albuterol/Ipratropium 3 ml 10/15/23 08:00 10/15/23 07:41 Ipratropium-Albuterol 3 Ml Neb INHALATION 3 ml RT-QID TIFFANIE Administration Albuterol/Ipratropium 3 ml 10/15/23 05:11 Ipratropium-Albuterol 3 Ml Neb INHALATION RT-Q4H PRN Shortness Of Breath Or Wheezing Budesonide/Formoterol Fumarate 2 puff 10/15/23 08:00 10/15/23 07:41 Symbicort 160-4.5 Mcg Inhaler INHALATION 2 puff RT-BID TIFFANIE Administration Sodium Bicarbonate 150 ml/ 1,150 mls @ 50 mls/hr 10/15/23 02:30 Dextrose/Water IV .Q23H TIFFANIE Sodium Chloride 1,000 mls @ 20 mls/hr 10/15/23 02:15 10/15/23 04:14 Saline 0.9% IV Not Given .Q24H TIFFANIE Methylprednisolone Sodium Succinate 40 mg 10/15/23 08:00 Methylprednisolone Sod Succi 40 Mg/Ml 1 Ml Vial IV Q8HR TIFFANIE Naloxone HCl 0.2 mg 10/15/23 02:15 Naloxone 0.4 Mg/Ml 1 Ml Vial IV Q2M PRN Opioid Reversal Pantoprazole Sodium 40 mg 10/15/23 09:00 Pantoprazole 40 Mg/10 Ml Vial IV DAILY TIFFANIE Intake and Output 10/14/23 10/15/23 10/15/23 22:59 06:59 14:59 Output Total 350 Balance -350 Output: Urine 350 Other: Weight 61.235 kg 10/14/23 22:06 10/15/23 07:00
[2023-10-15] MEDS: FUROSEMIDE 10 MG/ML 4 ML VIAL IV SCH (14:46)
[2023-10-15] MEDS: MAGNESIUM SULFATE-D5W PMX 1 GM in DEXTROSE/WATER 1 100ML.BAG IVPB SCH (14:47)
[2023-10-15 16:57] LABS: Glucose,Whole Blood 189 mg/dL (70-110)
[2023-10-15] MEDS: ATORVASTATIN 40 MG TAB PO SCH (19:52)
[2023-10-15 20:00] LABS: Glucose,Whole Blood 246 mg/dL (70-110)
[2023-10-15 21:16] LABS: African American GFR (CKD) 8 (>60 ml/min/1.73 sqM); Anion Gap 10 mmol/L; Blood Urea Nitrogen 72 mg/dL (9-20); Calcium 8.2 mg/dL (8.4-10.2); Carbon Dioxide 19 mmol/L (22-30); Chloride 106 mmol/L (98-107); Glucose 186 mg/dL (74-99); Non-African American GFR(CKD) 7 (>60 ml/min/1.73 sqM); Sodium 135 mmol/L (137-145)
[2023-10-15 21:51] LABS: Potassium 6.2 mmol/L (3.5-5.1)
[2023-10-15] MEDS: DEXTROSE 50% SYRINGE 50 ML IVP STA (23:19)
[2023-10-15] MEDS: SODIUM BICARB 8.4% 50 ML SYR (1 MEQ/ML) ONE (23:32)
[2023-10-16 02:05] LABS: Basophils % (A) 0 %; Eosinophils # (A) 0.1 k/uL (0-0.7); Eosinophils % (A) 1 %; HCT 25.5 % (39.0-53.0); HGB 7.7 gm/dL (13.0-17.5); Hypochromasia Marked; Lymphocytes # (A) 0.4 k/uL (1.0-4.8); Lymphocytes % (A) 5 %; MCHC 30.4 g/dL (31.0-37.0); MCV 105.5 fL (80.0-100.0); Macrocytosis Moderate; Mean Platelet Volume 8.9; Monocytes # (A) 0.4 k/uL (0-1.0); Monocytes % (A) 5 %; Neutrophils # (A) 8.6 k/uL (1.3-7.7); Neutrophils % (A) 89 %; Platelet Count 151 k/uL (150-450); RBC 2.42 m/uL (4.30-5.90); RDW 15.1 % (11.5-15.5); WBC 9.6 k/uL (3.8-10.6)
[2023-10-16 03:56] LABS: ALT 13 U/L (4-49); African American GFR (CKD) 9 (>60 ml/min/1.73 sqM); Albumin 3.6 g/dL (3.5-5.0); Anion Gap 9 mmol/L; Blood Urea Nitrogen 78 mg/dL (9-20); Calcium 8.3 mg/dL (8.4-10.2); Carbon Dioxide 23 mmol/L (22-30); Chloride 105 mmol/L (98-107); Glucose 88 mg/dL (74-99); Non-African American GFR(CKD) 8 (>60 ml/min/1.73 sqM); Sodium 137 mmol/L (137-145); Total Bilirubin 0.5 mg/dL (0.2-1.3); Total Protein 6.2 g/dL (6.3-8.2)
[2023-10-16 03:59] LABS: AST 25 U/L (17-59); Alkaline Phosphatase 46 U/L (38-126); Magnesium 3.1 mg/dL (1.6-2.3)
[2023-10-16 04:52] LABS: Basophils % (A) 0 %; Eosinophils # (A) 0.1 k/uL (0-0.7); Eosinophils % (A) 1 %; HCT 25.4 % (39.0-53.0); HGB 7.5 gm/dL (13.0-17.5); Hypochromasia Marked; Lymphocytes # (A) 0.3 k/uL (1.0-4.8); Lymphocytes % (A) 3 %; MCHC 29.5 g/dL (31.0-37.0); MCV 104.9 fL (80.0-100.0); Macrocytosis Moderate; Monocytes # (A) 0.7 k/uL (0-1.0); Monocytes % (A) 7 %; Neutrophils # (A) 8.5 k/uL (1.3-7.7); Neutrophils % (A) 88 %; Platelet Count 153 k/uL (150-450); RBC 2.42 m/uL (4.30-5.90); RDW 15.1 % (11.5-15.5); WBC 9.6 k/uL (3.8-10.6)
[2023-10-16 05:03] LABS: Glucose,Whole Blood 222 mg/dL (70-110)
[2023-10-16] MEDS: DEXTROSE 50% SYRINGE 50 ML IVP STA (05:12)
[2023-10-16] MEDS: SODIUM BICARB 8.4% 50 ML SYR (1 MEQ/ML) IV STA (05:12)
[2023-10-16] MEDS: CALCIUM GLUCONATE IN NACL 1 GM in SALINE 1 100ML.BAG IVPB ONE (05:13)
[2023-10-16] MEDS: INSULIN REGULAR 100 UNIT/ML VIAL (IV) IV ONE (05:13)
--- NOTE | 2023-10-16 07:58 | P.PN ---
Subjective Progress Note Date: 10/16/23 PROGRESS NOTE The patient is an 87-year-old male with a history of chronic tobacco use who presented with symptoms of progressive dyspnea, acute renal injury, hyperkalemia. He is in the ICU on BiPAP. He is not tolerating nasal cannula with episodes of hypoxemia. His potassium remains elevated. His blood pressure has been stable and he continues to be in sinus mechanism. He denies any chest discomfort. He feels that his breathing is stable. His echocardiogram showed an ejection fraction of 40 to 45%. His urinary output has been good. There is no evidence of malignant arrhythmia. Medications: Aspirin, Lipitor 40 mg daily, furosemide 40 mg IV every 12 hours, insulin, methylprednisolone,. Patient received Lokelma, sodium bicarb and calcium gluconate earlier. PHYSICAL EXAMINATION: Blood pressure 133/60 heart rate 80 on BiPAP LUNGS: Bilateral crackles HEART: Regular rate and rhythm, S1, S2. No S3. Systolic ejection murmur ABDOMEN: Soft, nontender, no organomegaly EXTREMETIES: No edema LAB: Hemoglobin 7.5, potassium this morning 5.0. His BUN and creatinine 78 and 6.14. His chest x-ray shows infiltrate more on the right side with evidence of CHF IMPRESSION: 1. Acute kidney injury with hyperkalemia, nonoliguric 2. Respiratory failure with probable combination of CHF and exacerbation of COPD. He has moderately reduced ejection fraction 3. History of hypertension 4. Chronic tobacco use 5. Troponin elevation probably secondary to acute renal injury. No evidence of acute coronary syndrome. 6. Anemia PLAN: 1. The patient may require dialysis 2. Continue present treatment 3. Follow potassium and renal functions 4. Prognosis remains guarded Objective - Vital Signs Vital signs: Vital Signs Temp 97.7 F 10/16/23 04:00 Pulse 81 10/16/23 07:00 Resp 20 10/16/23 07:00 BP 133/61 10/16/23 07:00 Pulse Ox 96 10/16/23 07:00 FiO2 60 10/16/23 03:42 Intake & Output 10/15/23 10/16/23 10/16/23 18:59 06:59 18:59 Intake Total 600 800 50 Output Total 675 535 75 Balance -75 265 -25 Weight 59.6 kg 63.7 kg Intake: IV 400 700 50 Calcium Gluconate in NaCl 100 2 gm In Saline 1 100ml. bag @ 100 mls/hr IVPB ONCE ONE Rx#:[id number] Dextrose 5% in Water 1, 400 600 50 000 ml @ 50 mls/hr IV . Q23H TIFFANIE with Sodium Bicarb (1 Meq/ml) 150 ml Rx#:[id number] Intake, IV Titration 200 100 Amount Calcium Gluconate in NaCl 100 2 gm In Saline 1 100ml. bag @ 100 mls/hr IVPB ONCE ONE Rx#:[id number] Magnesium Sulfate-D5w Pmx 100 100 1 gm In Dextrose/Water 1 100ml.bag @ 100 mls/hr IVPB Q1H TIFFANIE Rx#: [id number] Output: Urine 675 535 75 - Labs CBC & Chem 7: 10/16/23 03:53 10/16/23 06:57 Labs: Abnormal Lab Results - Last 24 Hours (Table) 10/15/23 10/15/23 10/15/23 Range/Units 07:00 10:19 11:36 RBC (4.30-5.90) m/uL Hgb (13.0-17.5) gm/dL Hct (39.0-53.0) % MCV (80.0-100.0) fL MCHC (31.0-37.0) g/dL Neutrophils # (1.3-7.7) k/uL Lymphocytes # (1.0-4.8) k/uL Sodium (137-145) mmol/L Potassium (3.5-5.1) mmol/L Chloride 128 H (98-107) mmol/L Carbon Dioxide 5 L* (22-30) mmol/L BUN 43 H (9-20) mg/dL Creatinine 3.81 H (0.66-1.25) mg/dL Glucose 63 L (74-99) mg/dL POC Glucose (mg/dL) 184 H 195 H (70-110) mg/dL Calcium 5.3 L* (8.4-10.2) mg/dL Magnesium (1.6-2.3) mg/dL Alkaline Phosphatase 29 L (38-126) U/L Total Protein 4.4 L (6.3-8.2) g/dL Albumin 2.1 L (3.5-5.0) g/dL 10/15/23 10/15/23 10/15/23 Range/Units 16:56 19:58 20:52 RBC (4.30-5.90) m/uL Hgb (13.0-17.5) gm/dL Hct (39.0-53.0) % MCV (80.0-100.0) fL MCHC (31.0-37.0) g/dL Neutrophils # (1.3-7.7) k/uL Lymphocytes # (1.0-4.8) k/uL Sodium (137-145) mmol/L Potassium (3.5-5.1) mmol/L Chloride (98-107) mmol/L Carbon Dioxide (22-30) mmol/L BUN (9-20) mg/dL Creatinine (0.66-1.25) mg/dL Glucose (74-99) mg/dL POC Glucose (mg/dL) 189 H 246 H (70-110) mg/dL Calcium (8.4-10.2) mg/dL Magnesium 3.1 H (1.6-2.3) mg/dL Alkaline Phosphatase (38-126) U/L Total Protein (6.3-8.2) g/dL Albumin (3.5-5.0) g/dL 10/15/23 10/16/23 10/16/23 Range/Units 20:52 01:50 01:50 RBC 2.42 L (4.30-5.90) m/uL Hgb 7.7 L (13.0-17.5) gm/dL Hct 25.5 L (39.0-53.0) % MCV 105.5 H (80.0-100.0) fL MCHC 30.4 L (31.0-37.0) g/dL Neutrophils # 8.6 H (1.3-7.7) k/uL Lymphocytes # 0.4 L (1.0-4.8) k/uL Sodium 135 L (137-145) mmol/L Potassium 6.2 H* 6.0 H (3.5-5.1) mmol/L Chloride (98-107) mmol/L Carbon Dioxide 19 L (22-30) mmol/L BUN 72 H 78 H (9-20) mg/dL Creatinine 6.46 H 6.14 H (0.66-1.25) mg/dL Glucose 186 H (74-99) mg/dL POC Glucose (mg/dL) (70-110) mg/dL Calcium 8.2 L 8.3 L (8.4-10.2) mg/dL Magnesium 3.1 H (1.6-2.3) mg/dL Alkaline Phosphatase (38-126) U/L Total Protein 6.2 L (6.3-8.2) g/dL Albumin (3.5-5.0) g/dL 10/16/23 10/16/23 Range/Units 03:53 05:01 RBC 2.42 L (4.30-5.90) m/uL Hgb 7.5 L (13.0-17.5) gm/dL Hct 25.4 L (39.0-53.0) % MCV 104.9 H (80.0-100.0) fL MCHC 29.5 L (31.0-37.0) g/dL Neutrophils # 8.5 H (1.3-7.7) k/uL Lymphocytes # 0.3 L (1.0-4.8) k/uL Sodium (137-145) mmol/L Potassium (3.5-5.1) mmol/L Chloride (98-107) mmol/L Carbon Dioxide (22-30) mmol/L BUN (9-20) mg/dL Creatinine (0.66-1.25) mg/dL Glucose (74-99) mg/dL POC Glucose (mg/dL) 222 H (70-110) mg/dL Calcium (8.4-10.2) mg/dL Magnesium (1.6-2.3) mg/dL Alkaline Phosphatase (38-126) U/L Total Protein (6.3-8.2) g/dL Albumin (3.5-5.0) g/dL
[2023-10-16] MEDS: FUROSEMIDE 100 MG in SODIUM CHLORIDE 0.9% 90 ML IV SCH (09:33)
[2023-10-16] MEDS: ASPIRIN 81 MG PO SCH (09:52)
--- NOTE | 2023-10-16 11:18 | P.PN ---
Subjective Patient is seen in follow-up for acute kidney injury. No improvement in renal function. On IV Lasix and now being started on Lasix drip. Potassium level improved with medical management. Brown catheter was inserted last night. Nonoliguric. Vital signs are stable. General: No acute distress. HEENT: Head exam is unremarkable. On nasal cannula. LUNGS: Scattered rhonchi. HEART: Rate and Rhythm are regular. ABDOMEN: No distention. EXTREMITITES: Trace edema. Objective - Vital Signs Vital signs: Vital Signs Temp 97.6 F 10/16/23 08:00 Pulse 84 10/16/23 08:33 Resp 11 L 10/16/23 08:30 BP 123/55 10/16/23 08:30 Pulse Ox 99 10/16/23 08:30 FiO2 60 10/16/23 03:42 Intake & Output 10/15/23 10/16/23 10/16/23 18:59 06:59 18:59 Intake Total 600 800 400 Output Total 675 535 155 Balance -75 265 245 Weight 59.6 kg 63.7 kg Intake: IV 400 700 100 Calcium Gluconate in NaCl 100 2 gm In Saline 1 100ml. bag @ 100 mls/hr IVPB ONCE ONE Rx#:[id number] Dextrose 5% in Water 1, 400 600 100 000 ml @ 50 mls/hr IV . Q23H TIFFANIE with Sodium Bicarb (1 Meq/ml) 150 ml Rx#:[id number] Intake, IV Titration 200 100 Amount Calcium Gluconate in NaCl 100 2 gm In Saline 1 100ml. bag @ 100 mls/hr IVPB ONCE ONE Rx#:[id number] Magnesium Sulfate-D5w Pmx 100 100 1 gm In Dextrose/Water 1 100ml.bag @ 100 mls/hr IVPB Q1H TIFFANIE Rx#: [id number] Oral 300 Output: Urine 675 535 155 - Labs CBC & Chem 7: 10/16/23 03:53 10/16/23 06:57 Labs: Abnormal Lab Results - Last 24 Hours (Table) 10/15/23 10/15/23 10/15/23 Range/Units 11:36 16:56 19:58 RBC (4.30-5.90) m/uL Hgb (13.0-17.5) gm/dL Hct (39.0-53.0) % MCV (80.0-100.0) fL MCHC (31.0-37.0) g/dL Neutrophils # (1.3-7.7) k/uL Lymphocytes # (1.0-4.8) k/uL Sodium (137-145) mmol/L Potassium (3.5-5.1) mmol/L Carbon Dioxide (22-30) mmol/L BUN (9-20) mg/dL Creatinine (0.66-1.25) mg/dL Glucose (74-99) mg/dL POC Glucose (mg/dL) 195 H 189 H 246 H (70-110) mg/dL Calcium (8.4-10.2) mg/dL Magnesium (1.6-2.3) mg/dL Total Protein (6.3-8.2) g/dL 10/15/23 10/15/23 10/16/23 Range/Units 20:52 20:52 01:50 RBC (4.30-5.90) m/uL Hgb (13.0-17.5) gm/dL Hct (39.0-53.0) % MCV (80.0-100.0) fL MCHC (31.0-37.0) g/dL Neutrophils # (1.3-7.7) k/uL Lymphocytes # (1.0-4.8) k/uL Sodium 135 L (137-145) mmol/L Potassium 6.2 H* 6.0 H (3.5-5.1) mmol/L Carbon Dioxide 19 L (22-30) mmol/L BUN 72 H 78 H (9-20) mg/dL Creatinine 6.46 H 6.14 H (0.66-1.25) mg/dL Glucose 186 H (74-99) mg/dL POC Glucose (mg/dL) (70-110) mg/dL Calcium 8.2 L 8.3 L (8.4-10.2) mg/dL Magnesium 3.1 H 3.1 H (1.6-2.3) mg/dL Total Protein 6.2 L (6.3-8.2) g/dL 10/16/23 10/16/23 10/16/23 Range/Units 01:50 03:53 05:01 RBC 2.42 L 2.42 L (4.30-5.90) m/uL Hgb 7.7 L 7.5 L (13.0-17.5) gm/dL Hct 25.5 L 25.4 L (39.0-53.0) % MCV 105.5 H 104.9 H (80.0-100.0) fL MCHC 30.4 L 29.5 L (31.0-37.0) g/dL Neutrophils # 8.6 H 8.5 H (1.3-7.7) k/uL Lymphocytes # 0.4 L 0.3 L (1.0-4.8) k/uL Sodium (137-145) mmol/L Potassium (3.5-5.1) mmol/L Carbon Dioxide (22-30) mmol/L BUN (9-20) mg/dL Creatinine (0.66-1.25) mg/dL Glucose (74-99) mg/dL POC Glucose (mg/dL) 222 H (70-110) mg/dL Calcium (8.4-10.2) mg/dL Magnesium (1.6-2.3) mg/dL Total Protein (6.3-8.2) g/dL Assessment and Plan Plan: Assessment: 1. Acute kidney injury secondary to ATN. Creatinine 6.62 on admission and is 6.14 today. Creatinine in November 2014 was 1.9. No hydronephrosis noted on kidney ultrasound. Left kidney atrophic. 2. Metabolic acidosis secondary to acute kidney injury and IV fluids. Improved with bicarb drip. 3. Hyperkalemia secondary to acute kidney injury, acidosis and lisinopril. Improved with medical management. 4. Hypocalcemia secondary to acute kidney injury. Replaced. Better. 5. Benign hypertension. Controlled. 6. Acute Evoxac respiratory failure. 7. Volume overload. 8. Acute on chronic systolic CHF with ejection fraction of 40 to 45% with mild to moderate tricuspid regurgitation and moderate mitral regurgitation. 9. Anemia. Rule out deficiency. Plan: Hep-Lock IV fluids. Lasix drip being started now. Renal replacement therapy has been discussed at length with the patient. Patient is not cooperative and currently refusing any form of renal replacement therapy. Continue to assess on daily basis. No urgency at this time. Check iron studies.
[2023-10-16 11:29] LABS: Glucose,Whole Blood 187 mg/dL (70-110)
--- NOTE | 2023-10-16 11:33 | XR ---
EXAMINATION TYPE: XR chest 1V portable DATE OF EXAM: 10/16/2023 5:06 AM CLINICAL INDICATION:Male, 87 years old with history of Hypoxia; COMPARISON: Chest radiographs from 10/15/2023. TECHNIQUE: XR chest 1V portable Frontal view of the chest. FINDINGS: Lungs/Pleura: There is no evidence of pleural effusion, focal consolidation, or pneumothorax. Pulmonary vascularity: Pulmonary vascular congestion. Heart/mediastinum: Cardiomediastinal silhouette is enlarged and stable. Musculoskeletal: No acute osseous pathology. IMPRESSION: 1. Worsening aeration of the right lower lung. Correlate for superimposed congestive heart failure w ith cardiomegaly, pulmonary vascular congestion and right pleural effusion.
--- NOTE | 2023-10-16 12:06 | P.PN ---
Subjective Progress Note Date: 10/16/23 Principal diagnosis: Acute on chronic hypoxic respiratory failure secondary to acute fluid overload and underlying COPD with acute COPD exacerbation. Patient is an 87-year-old male with past medical history significant for COPD, chronic hypoxemic respiratory failure, hypertension, and kidney stones. He is quite upset to be in the hospital at this time, and he wants to go home. He reportedly lives by himself, and a neighbor had called for a wellbeing check yesterday evening. When EMS arrived, he was found to be hypoxic with an SpO2 of in the low 80s on his baseline 3 L/min nasal cannula. EMS then brought the patient to the emergency department. Patient was found to be in acute renal failure and severely hyperkalemic. BMP: Sodium 140, potassium 8.1, chloride 117, serum bicarb 12, BUN 67, creatinine 6.62, glucose 109. Lactic acid 1.1. Magnesium 2.5. Troponin 0.049. NT proBNP 36,500. CBC: WBC count 6.2, hemoglobin 8.8, hematocrit 30.6, platelets 141. Chest x-ray demonstrates cardiomegaly with pulmonary vascular congestion, small bilateral pleural effusions, and interstitial edema. Since his initial ER presentation, his oxygen demands increased and currently on 8 L/min high flow nasal cannula. He is alert and fully oriented, and currently refusing treatment. He is actually telling me that he is going to call a cab and leave this facility. He has not received any correction for his critically elevated potassium yet. ECG showing normal sinus rhythm with first-degree AV block and hyperacute T waves. I have repeatedly explained how critical his situation is, that if he were to leave at this time, he would likely had a cardiac arrest. He called his son, and I did speak to his son on the telephone about his father's critical condition. He is going to come up to the hospital and see his father. His son is encouraging him to stay in the hospital over the phone. After this, the patient has been more receptive to this interview and my questions. He states that he had kidney stones approximately 3 years ago. Denies NSAID use. Denies any trouble urinating such as dysuria, urinary frequency, hematuria, flank pain. Denies having an enlarged prostate. [id number] bladder scan reveals a minimal amount of urine, 140 cc. Patient is refusing urinary catheter. Nephrology has been consulted for management of his renal failure and hyperkalemia. As far as the patient's respiratory status. He states that has been getting worse over the last couple days, which he attributes to the heat outside. Denies any infectious-like symptoms such as fever, rhinorrhea, sore throat, cough, sputum production, hemoptysis. Denies any nausea or vomiting, diarrhea, or abdominal pain. He has been traveling by car [id number] to [place] over the last several weeks. Denies chest pain. Denies lower extremity swelling. He is audibly wheezing on examination. Does use inhalers and nebulizer at home, but is unsure of medications or doses. Reportedly a current smoker, approximately 1/2 to 1 ppd. Overall prognosis is guarded. Patient was reevaluated today on 10/16/2023, patient remains in the ICU, no significant improvement noted in his renal function, patient is making urine and responding to Lasix, however his chest x-ray is worsening, and I recommended that we start the patient on Lasix drip today. Nephrology is considering renal replacement therapy on this patient, however I believe the patient is going to be extremely reluctant and he will likely refuse it because I touch bases with him earlier regarding this, and the patient wants to be discharged home. Again it is a very difficult situation, patient is not very compliant, and he is resisting all kinds of treatment. Ultrasound of the kidneys showed no evidence of hydronephrosis. His metabolic acidosis did improve with bicarb drip, and this has been placed on hold for today. His hyperkalemia did improve with treatment. Blood pressure is also under control. Again his chest x-ray is showing worsening of his pulmonary edema. Labs today showed relatively normal WBC count, hemoglobin is 7.5. Platelets are 153. Potassium this morning is 5.0. It was 6.0 earlier. Patient remains on 15 L high flow nasal cannula and O2 saturation 97%. Hemodynamically patient is doing well blood pressure is 123/55, not requiring any pressors. Objective - Vital Signs Vital signs: Vital Signs Temp 97.6 F 10/16/23 08:00 Pulse 84 10/16/23 08:33 Resp 11 L 10/16/23 08:30 BP 123/55 10/16/23 08:30 Pulse Ox 99 10/16/23 08:30 FiO2 60 06/21/24 03:42 Intake & Output 10/15/23 10/16/23 10/16/23 18:59 06:59 18:59 Intake Total 600 800 400 Output Total 675 535 155 Balance -75 265 245 Weight 59.6 kg 63.7 kg Intake: IV 400 700 100 Calcium Gluconate in NaCl 100 2 gm In Saline 1 100ml. bag @ 100 mls/hr IVPB ONCE ONE Rx#:[id number] Dextrose 5% in Water 1, 400 600 100 000 ml @ 50 mls/hr IV . Q23H TIFFANIE with Sodium Bicarb (1 Meq/ml) 150 ml Rx#:[id number] Intake, IV Titration 200 100 Amount Calcium Gluconate in NaCl 100 2 gm In Saline 1 100ml. bag @ 100 mls/hr IVPB ONCE ONE Rx#:[id number] Magnesium Sulfate-D5w Pmx 100 100 1 gm In Dextrose/Water 1 100ml.bag @ 100 mls/hr IVPB Q1H TIFFANIE Rx#: [id number] Oral 300 Output: Urine 675 535 155 - Exam GENERAL EXAM: Revealed 87-year-old white male on 15 L high flow nasal cannula, in no distress HEAD: Normocephalic and atraumatic EYES: Normal reaction of pupils, equal size. NOSE: Clear with pink turbinates. THROAT: No erythema or exudates. NECK: No masses, no JVD. CHEST: No chest wall deformity. LUNGS: Crackles noted bilaterally. CVS: S1 and S2 normal with no audible murmur, regular rhythm. No extra heart sounds ABDOMEN: No hepatosplenomegaly, active bowel sounds, no guarding or rigidity. SKIN: No rashes CENTRAL NERVOUS SYSTEM: Alert and oriented x 3 no gross deficit, however the patient gets irritated easily, and continues to refuse any treatment offered. Asking to be discharged home. EXTREMITIES: There is mild bilateral nonpitting lower extremity edema. No clubbing, or cyanosis. Peripheral pulses are intact. - Labs CBC & Chem 7: 10/16/23 03:53 10/16/23 06:57 Labs: Abnormal Lab Results - Last 24 Hours (Table) 10/15/23 10/15/23 10/15/23 Range/Units 16:56 19:58 20:52 RBC (4.30-5.90) m/uL Hgb (13.0-17.5) gm/dL Hct (39.0-53.0) % MCV (80.0-100.0) fL MCHC (31.0-37.0) g/dL Neutrophils # (1.3-7.7) k/uL Lymphocytes # (1.0-4.8) k/uL Sodium (137-145) mmol/L Potassium (3.5-5.1) mmol/L Carbon Dioxide (22-30) mmol/L BUN (9-20) mg/dL Creatinine (0.66-1.25) mg/dL Glucose (74-99) mg/dL POC Glucose (mg/dL) 189 H 246 H (70-110) mg/dL Calcium (8.4-10.2) mg/dL Magnesium 3.1 H (1.6-2.3) mg/dL Total Protein (6.3-8.2) g/dL 10/15/23 10/16/23 10/16/23 Range/Units 20:52 01:50 01:50 RBC 2.42 L (4.30-5.90) m/uL Hgb 7.7 L (13.0-17.5) gm/dL Hct 25.5 L (39.0-53.0) % MCV 105.5 H (80.0-100.0) fL MCHC 30.4 L (31.0-37.0) g/dL Neutrophils # 8.6 H (1.3-7.7) k/uL Lymphocytes # 0.4 L (1.0-4.8) k/uL Sodium 135 L (137-145) mmol/L Potassium 6.2 H* 6.0 H (3.5-5.1) mmol/L Carbon Dioxide 19 L (22-30) mmol/L BUN 72 H 78 H (9-20) mg/dL Creatinine 6.46 H 6.14 H (0.66-1.25) mg/dL Glucose 186 H (74-99) mg/dL POC Glucose (mg/dL) (70-110) mg/dL Calcium 8.2 L 8.3 L (8.4-10.2) mg/dL Magnesium 3.1 H (1.6-2.3) mg/dL Total Protein 6.2 L (6.3-8.2) g/dL 10/16/23 10/16/23 10/16/23 Range/Units 03:53 05:01 11:27 RBC 2.42 L (4.30-5.90) m/uL Hgb 7.5 L (13.0-17.5) gm/dL Hct 25.4 L (39.0-53.0) % MCV 104.9 H (80.0-100.0) fL MCHC 29.5 L (31.0-37.0) g/dL Neutrophils # 8.5 H (1.3-7.7) k/uL Lymphocytes # 0.3 L (1.0-4.8) k/uL Sodium (137-145) mmol/L Potassium (3.5-5.1) mmol/L Carbon Dioxide (22-30) mmol/L BUN (9-20) mg/dL Creatinine (0.66-1.25) mg/dL Glucose (74-99) mg/dL POC Glucose (mg/dL) 222 H 187 H (70-110) mg/dL Calcium (8.4-10.2) mg/dL Magnesium (1.6-2.3) mg/dL Total Protein (6.3-8.2) g/dL Assessment and Plan Assessment: Impression: Acute on chronic hypoxemic respiratory failure secondary to fluid overload and acute COPD exacerbation. Chronic obstructive pulmonary disease Chronic hypoxemic respiratory failure, secondary to above, normally made on 2-3 L/min nasal cannula Current ongoing tobacco dependence Acute kidney injury/failure Acute severe non-anion gap metabolic acidosis, secondary to above Severe hyperkalemia, noted on admission, responding to medical treatment. Elevated troponins, in the setting of acute renal failure Suspect chronic anemia History of kidney stones no hydronephrosis noted on renal ultrasound Recommendation: Continue present supportive care measures Continue to monitor in the ICU Will place the patient on Lasix drip at 10 mg/h Continue bronchodilators Continue to monitor daily I's and O's, If no improvement noted in his renal profile, patient may have to undergo renal replacement therapy and that is being addressed by nephrology Overall prognosis remains extremely poor and guarded, especially when the patient is noncompliant. Will continue to follow and monitor in the ICU Time with Patient: Less than 30
--- NOTE | 2023-10-16 13:18 | P.PN ---
Subjective Progress Note Date: 10/16/23 patient is a 87-year-old gentleman past medical history significant for COPD, hypertension was brought to the ER for shortness of breath. Patient had a wellness check done on him after neighbors were concerned for his safety. When EMS arrived at this point patient was found to be short of breath. Patient history of COPD and currently uses 3 L of oxygen. Patient stated that he was short of breath for the last few days. Patient also complaining of wheezing. There was no complaint of fever or chills. There is no complaint of nausea, or abdominal pain. Patient denies any recent falls. Patient was initially very resistant to the idea of coming to the hospital. EMS brought patient to [facility] Initial lab work done in the ER showed W6.2, hemoglobin 8.8, platelet count 141, sodium 148, potassium 8.1, BUN 67, creatinine 6.62, troponin 0.049, proBNP 41924 Influenza A not detected Influenza B not detected RSV not detected COVID-19 not detected EKG done in the ER showed heart rate of75 , no ST segment elevation or depression seen, no T-wave inversions seen. Chest x-ray done in the ER showed small bilateral pleural effusion, pulm vascular congestion, cardiomegaly Because of hyperkalemia and acute kidney injury, patient was admitted to ICU under internal medicine service 10/15. Patient seen and examined. Currently on 15 L of oxygen. Blood work done this morning showed WBC 9.6, hemoglobin 7.5, sodium 137, potassium 6, BUN 78, creatinine 6.14. States breathing is very bad. Denies any cough. Patient started on Lasix drip REVIEW OF SYSTEMS: CONSTITUTIONAL: No fever, no malaise,. CARDIOVASCULAR: No chest pain, no palpitations, no syncope. PULMONARY: As mentioned above GASTROINTESTINAL: No diarrhea, no nausea, no vomiting, no abdominal pain. NEUROLOGICAL: No headaches, no weakness, PHYSICAL EXAMINATION: GENERAL: The patient is alert, extremely hard of hearing HEENT: Pupils are round and equally reacting to light. EOMI. No scleral icterus. No conjunctival pallor. Normocephalic, atraumatic. No pharyngeal erythema. No thyromegaly. CARDIOVASCULAR: S1 and S2 present. No murmurs, rubs, or gallops. PULMONARY: Coarse breath sound bilaterally, no wheezing or crackles. ABDOMEN: Soft, nontender, nondistended, normoactive bowel sounds. No palpable organomegaly. MUSCULOSKELETAL: No joint swelling or deformity. EXTREMITIES: No cyanosis, clubbing, or pedal edema. NEUROLOGICAL: Gross neurological examination did not reveal any focal deficits. SKIN: No rashes. Assessment and plan Acute on chronic hypoxemic respiratory failure acute COPD exacerbation. Acute kidney injury Acute CHF Acute severe non-anion gap metabolic acidosis, secondary to above Severe hyperkalemia Elevated troponins, in the setting of acute renal failure Anemia Current ongoing tobacco dependence History of kidney stones Monitor vital signs Monitor CBC Monitor CMP Continue telemetry monitoring Continue oxygen supplementation Strict I's and O's Daily weights Started on Lasix drip Continue breathing treatments Nephrology discussed with patient regarding starting renal replacement therapy ICU following Cardiology following Labs and medication were reviewed.. Continue same treatment. Continue with symptomatic treatment. Resume home medication. Monitor labs and vitals. DVT and GI prophylaxis. Further recommendations as per clinical course of the patient Dictation was produced using [employer] dictation software. please excuse any grammatical, word or spelling errors. Objective - Vital Signs Vital signs: Vital Signs Temp 99 F 10/16/23 12:00 Pulse 90 10/16/23 12:53 Resp 47 H 10/16/23 12:00 BP 150/70 10/16/23 12:00 Pulse Ox 93 L 10/16/23 12:00 FiO2 60 10/16/23 03:42 Intake & Output 10/15/23 10/16/23 10/16/23 18:59 06:59 18:59 Intake Total 600 800 507 Output Total 675 535 445 Balance -75 265 62 Weight 59.6 kg 63.7 kg Intake: IV 400 700 180 Calcium Gluconate in NaCl 100 2 gm In Saline 1 100ml. bag @ 100 mls/hr IVPB ONCE ONE Rx#:[id number] Dextrose 5% in Water 1, 400 600 180 000 ml @ 50 mls/hr IV . Q23H TIFFANIE with Sodium Bicarb (1 Meq/ml) 150 ml Rx#:[id number] Intake, IV Titration 200 100 27 Amount Calcium Gluconate in NaCl 100 2 gm In Saline 1 100ml. bag @ 100 mls/hr IVPB ONCE ONE Rx#:[id number] Furosemide 100 mg In 27 Sodium Chloride 0.9% 90 ml @ 10 MG/HR 10 mls/hr IV .Q10H TIFFANIE Rx#: [id number] Magnesium Sulfate-D5w Pmx 100 100 1 gm In Dextrose/Water 1 100ml.bag @ 100 mls/hr IVPB Q1H TIFFANIE Rx#: [id number] Oral 300 Output: Urine 675 535 445 Other: Voiding Method Indwelling Catheter - Labs CBC & Chem 7: 10/16/23 03:53 10/16/23 06:57 Labs: Abnormal Lab Results - Last 24 Hours (Table) 10/15/23 10/15/23 10/15/23 Range/Units 16:56 19:58 20:52 RBC (4.30-5.90) m/uL Hgb (13.0-17.5) gm/dL Hct (39.0-53.0) % MCV (80.0-100.0) fL MCHC (31.0-37.0) g/dL Neutrophils # (1.3-7.7) k/uL Lymphocytes # (1.0-4.8) k/uL Sodium (137-145) mmol/L Potassium (3.5-5.1) mmol/L Carbon Dioxide (22-30) mmol/L BUN (9-20) mg/dL Creatinine (0.66-1.25) mg/dL Glucose (74-99) mg/dL POC Glucose (mg/dL) 189 H 246 H (70-110) mg/dL Calcium (8.4-10.2) mg/dL Magnesium 3.1 H (1.6-2.3) mg/dL Total Protein (6.3-8.2) g/dL 10/15/23 10/16/23 10/16/23 Range/Units 20:52 01:50 01:50 RBC 2.42 L (4.30-5.90) m/uL Hgb 7.7 L (13.0-17.5) gm/dL Hct 25.5 L (39.0-53.0) % MCV 105.5 H (80.0-100.0) fL MCHC 30.4 L (31.0-37.0) g/dL Neutrophils # 8.6 H (1.3-7.7) k/uL Lymphocytes # 0.4 L (1.0-4.8) k/uL Sodium 135 L (137-145) mmol/L Potassium 6.2 H* 6.0 H (3.5-5.1) mmol/L Carbon Dioxide 19 L (22-30) mmol/L BUN 72 H 78 H (9-20) mg/dL Creatinine 6.46 H 6.14 H (0.66-1.25) mg/dL Glucose 186 H (74-99) mg/dL POC Glucose (mg/dL) (70-110) mg/dL Calcium 8.2 L 8.3 L (8.4-10.2) mg/dL Magnesium 3.1 H (1.6-2.3) mg/dL Total Protein 6.2 L (6.3-8.2) g/dL 10/16/23 10/16/23 10/16/23 Range/Units 03:53 05:01 11:27 RBC 2.42 L (4.30-5.90) m/uL Hgb 7.5 L (13.0-17.5) gm/dL Hct 25.4 L (39.0-53.0) % MCV 104.9 H (80.0-100.0) fL MCHC 29.5 L (31.0-37.0) g/dL Neutrophils # 8.5 H (1.3-7.7) k/uL Lymphocytes # 0.3 L (1.0-4.8) k/uL Sodium (137-145) mmol/L Potassium (3.5-5.1) mmol/L Carbon Dioxide (22-30) mmol/L BUN (9-20) mg/dL Creatinine (0.66-1.25) mg/dL Glucose (74-99) mg/dL POC Glucose (mg/dL) 222 H 187 H (70-110) mg/dL Calcium (8.4-10.2) mg/dL Magnesium (1.6-2.3) mg/dL Total Protein (6.3-8.2) g/dL
[2023-10-16] MEDS: SODIUM ZIRCONIUM CYCLOSILICATE 10 GM PACKET PO ONE (14:42)
[2023-10-16 14:46] VITALS: BMI 20.7
[2023-10-16 15:26] LABS: % Iron Saturation 20.18 (15.00-50.00)
[2023-10-16 20:03] LABS: Glucose,Whole Blood 229 mg/dL (70-110)
[2023-10-16] MEDS: INSULIN ASPART (NovoLOG) 100 UNIT/ML VIAL SQ SCH (20:09)
[2023-10-17 06:18] LABS: Basophils % (A) 0 %; Eosinophils # (A) 0.1 k/uL (0-0.7); Eosinophils % (A) 1 %; HCT 24.3 % (39.0-53.0); HGB 7.4 gm/dL (13.0-17.5); Hypochromasia Moderate; Lymphocytes # (A) 0.3 k/uL (1.0-4.8); Lymphocytes % (A) 3 %; MCH 31.3 pg (25.0-35.0); MCHC 30.3 g/dL (31.0-37.0); MCV 103.5 fL (80.0-100.0); Macrocytosis Slight; Mean Platelet Volume 9.5; Monocytes # (A) 0.6 k/uL (0-1.0); Monocytes % (A) 5 %; Neutrophils # (A) 10.1 k/uL (1.3-7.7); Neutrophils % (A) 91 %; Platelet Count 152 k/uL (150-450); RBC 2.35 m/uL (4.30-5.90); RDW 15.1 % (11.5-15.5); WBC 11.2 k/uL (3.8-10.6)
[2023-10-17 06:37] LABS: African American GFR (CKD) 9 (>60 ml/min/1.73 sqM); Anion Gap 12 mmol/L; Blood Urea Nitrogen 79 mg/dL (9-20); Calcium 7.8 mg/dL (8.4-10.2); Carbon Dioxide 25 mmol/L (22-30); Chloride 99 mmol/L (98-107); Glucose 109 mg/dL (74-99); Magnesium 2.5 mg/dL (1.6-2.3); Non-African American GFR(CKD) 8 (>60 ml/min/1.73 sqM); Potassium 4.7 mmol/L (3.5-5.1); Sodium 136 mmol/L (137-145)
[2023-10-17 06:41] LABS: Glucose,Whole Blood 135 mg/dL (70-110)
--- NOTE | 2023-10-17 08:37 | P.PN ---
Subjective Progress Note Date: 10/17/23 PROGRESS NOTE The patient is an 87-year-old male with a history of chronic tobacco use who presented with symptoms of progressive dyspnea, acute renal injury, hyperkalemia. He is in the ICU on BiPAP. He is not tolerating nasal cannula with episodes of hypoxemia. His potassium remains elevated. His blood pressure has been stable and he continues to be in sinus mechanism. He denies any chest discomfort. He feels that his breathing is stable. His echocardiogram showed an ejection fraction of 40 to 45%. His urinary output has been good. There is no evidence of malignant arrhythmia. October 16: The patient is awake and alert, anxious to go home. He denies any chest discomfort, dizziness or palpitations. He is on IV Lasix drip with improvement in his urinary output. He denies any nausea or vomiting. He continues to be in sinus mechanism. There is no evidence of hypotension or malignant arrhythmia. Medications: Aspirin, Lipitor 40 mg daily, IV Lasix drip, insulin, methylprednisolone. PHYSICAL EXAMINATION: Blood pressure 135/95 heart rate 87 LUNGS: Bilateral crackles HEART: Regular rate and rhythm, S1, S2. No S3. Systolic ejection murmur ABDOMEN: Soft, nontender, no organomegaly EXTREMETIES: No edema LAB: Hemoglobin 7.4, potassium 4.7. His BUN and creatinine 79 and 5.77. IMPRESSION: 1. Acute kidney injury with hyperkalemia, nonoliguric, hyperkalemia resolved. Urine output has improved with IV Lasix drip 2. Respiratory failure with probable combination of CHF and exacerbation of COPD. He has moderately reduced ejection fraction 3. History of hypertension 4. Chronic tobacco use 5. Troponin elevation probably secondary to acute renal injury. No evidence of acute coronary syndrome. 6. Anemia PLAN: 1. The patient may require dialysis 2. Continue present treatment with IV Lasix drip 3. Follow potassium and renal functions 4. Follow chest x-ray 5. Start low-dose beta-aicha 6. Depending on renal function and blood pressure adjust medical regimen Objective - Vital Signs Vital signs: Vital Signs Temp 97.7 F 10/17/23 08:00 Pulse 87 10/17/23 08:00 Resp 19 10/17/23 08:00 BP 135/95 10/17/23 08:00 Pulse Ox 94 L 10/17/23 08:00 FiO2 60 10/17/23 00:00 Intake & Output 10/16/23 10/17/23 10/17/23 18:59 06:59 18:59 Intake Total 777.667 319.167 160 Output Total 1150 1060 175 Balance -372.333 -740.833 -15 Weight 63.7 kg 61.1 kg Intake: IV 320 220 40 Dextrose 5% in Water 1, 100 000 ml @ 50 mls/hr IV . Q23H TIFFANIE with Sodium Bicarb (1 Meq/ml) 150 ml Rx#:[id number] Sodium Chloride 0.9% 1, 220 220 40 000 ml @ 20 mls/hr IV . Q24H TIFFANIE Rx#:[id number] Intake, IV Titration 157.667 99.167 Amount Furosemide 100 mg In 157.667 99.167 Sodium Chloride 0.9% 90 ml @ 10 MG/HR 10 mls/hr IV .Q10H TIFFANIE Rx#: [id number] Oral 300 120 Output: Urine 1150 1060 175 Other: Voiding Method Indwelling Catheter Indwelling Catheter - Labs CBC & Chem 7: 10/17/23 05:24 10/17/23 05:24 Labs: Abnormal Lab Results - Last 24 Hours (Table) 10/16/23 10/16/23 10/16/23 Range/Units 01:50 11:27 20:01 WBC (3.8-10.6) k/uL RBC (4.30-5.90) m/uL Hgb (13.0-17.5) gm/dL Hct (39.0-53.0) % MCV (80.0-100.0) fL MCHC (31.0-37.0) g/dL Neutrophils # (1.3-7.7) k/uL Lymphocytes # (1.0-4.8) k/uL Sodium (137-145) mmol/L BUN (9-20) mg/dL Creatinine (0.66-1.25) mg/dL Glucose (74-99) mg/dL POC Glucose (mg/dL) 187 H 229 H (70-110) mg/dL Calcium (8.4-10.2) mg/dL Magnesium (1.6-2.3) mg/dL Iron 44 L (65-175) UG/DL TIBC 218 L (228-460) UG/DL Transferrin 156.0 L (204.0-354.0) mg/dL 10/17/23 10/17/23 10/17/23 Range/Units 05:24 05:24 06:39 WBC 11.2 H (3.8-10.6) k/uL RBC 2.35 L (4.30-5.90) m/uL Hgb 7.4 L (13.0-17.5) gm/dL Hct 24.3 L (39.0-53.0) % MCV 103.5 H (80.0-100.0) fL MCHC 30.3 L (31.0-37.0) g/dL Neutrophils # 10.1 H (1.3-7.7) k/uL Lymphocytes # 0.3 L (1.0-4.8) k/uL Sodium 136 L (137-145) mmol/L BUN 79 H (9-20) mg/dL Creatinine 5.77 H (0.66-1.25) mg/dL Glucose 109 H (74-99) mg/dL POC Glucose (mg/dL) 135 H (70-110) mg/dL Calcium 7.8 L (8.4-10.2) mg/dL Magnesium 2.5 H (1.6-2.3) mg/dL Iron (65-175) UG/DL TIBC (228-460) UG/DL Transferrin (204.0-354.0) mg/dL
--- NOTE | 2023-10-17 09:37 | XR ---
EXAMINATION TYPE: XR chest 1V portable DATE OF EXAM: 10/17/2023 COMPARISON: 10/16/2023 INDICATION: Hypoxia TECHNIQUE: Single frontal view of the chest is obtained. FINDINGS: The heart size is normal. The pulmonary vasculature is very prominent. Diffuse increased lung markings are present. Correlate for pulmonary edema. IMPRESSION: 1. Increasing lung markings. Correlate for pulmonary edema. Continued follow-up recommended.
--- NOTE | 2023-10-17 11:04 | P.PN ---
Subjective Progress Note Date: 10/17/23 Principal diagnosis: Acute on chronic hypoxic respiratory failure secondary to acute fluid overload and underlying COPD with acute COPD exacerbation. Patient is an 87-year-old male with past medical history significant for COPD, chronic hypoxemic respiratory failure, hypertension, and kidney stones. He is quite upset to be in the hospital at this time, and he wants to go home. He reportedly lives by himself, and a neighbor had called for a wellbeing check yesterday evening. When EMS arrived, he was found to be hypoxic with an SpO2 of in the low 80s on his baseline 3 L/min nasal cannula. EMS then brought the patient to the emergency department. Patient was found to be in acute renal failure and severely hyperkalemic. BMP: Sodium 140, potassium 8.1, chloride 117, serum bicarb 12, BUN 67, creatinine 6.62, glucose 109. Lactic acid 1.1. Magnesium 2.5. Troponin 0.049. NT proBNP 36,500. CBC: WBC count 6.2, hemoglobin 8.8, hematocrit 30.6, platelets 141. Chest x-ray demonstrates cardiomegaly with pulmonary vascular congestion, small bilateral pleural effusions, and interstitial edema. Since his initial ER presentation, his oxygen demands increased and currently on 8 L/min high flow nasal cannula. He is alert and fully oriented, and currently refusing treatment. He is actually telling me that he is going to call a cab and leave this facility. He has not received any correction for his critically elevated potassium yet. ECG showing normal sinus rhythm with first-degree AV block and hyperacute T waves. I have repeatedly explained how critical his situation is, that if he were to leave at this time, he would likely had a cardiac arrest. He called his son, and I did speak to his son on the telephone about his father's critical condition. He is going to come up to the hospital and see his father. His son is encouraging him to stay in the hospital over the phone. After this, the patient has been more receptive to this interview and my questions. He states that he had kidney stones approximately 3 years ago. Denies NSAID use. Denies any trouble urinating such as dysuria, urinary frequency, hematuria, flank pain. Denies having an enlarged prostate. Ubesh-uz-[id number] bladder scan reveals a minimal amount of urine, 140 cc. Patient is refusing urinary catheter. Nephrology has been consulted for management of his renal failure and hyperkalemia. As far as the patient's respiratory status. He states that has been getting worse over the last couple days, which he attributes to the heat outside. Denies any infectious-like symptoms such as fever, rhinorrhea, sore throat, cough, sputum production, hemoptysis. Denies any nausea or vomiting, diarrhea, or abdominal pain. He has been traveling by car [id number] to [place] over the last several weeks. Denies chest pain. Denies lower extremity swelling. He is audibly wheezing on examination. Does use inhalers and nebulizer at home, but is unsure of medications or doses. Reportedly a current smoker, approximately 1/2 to 1 ppd. Overall prognosis is guarded. Patient was reevaluated today on 10/16/2023, patient remains in the ICU, no significant improvement noted in his renal function, patient is making urine and responding to Lasix, however his chest x-ray is worsening, and I recommended that we start the patient on Lasix drip today. Nephrology is considering renal replacement therapy on this patient, however I believe the patient is going to be extremely reluctant and he will likely refuse it because I touch bases with him earlier regarding this, and the patient wants to be discharged home. Again it is a very difficult situation, patient is not very compliant, and he is resisting all kinds of treatment. Ultrasound of the kidneys showed no evidence of hydronephrosis. His metabolic acidosis did improve with bicarb drip, and this has been placed on hold for today. His hyperkalemia did improve with treatment. Blood pressure is also under control. Again his chest x-ray is showing worsening of his pulmonary edema. Labs today showed relatively normal WBC count, hemoglobin is 7.5. Platelets are 153. Potassium this morning is 5.0. It was 6.0 earlier. Patient remains on 15 L high flow nasal cannula and O2 saturation 97%. Hemodynamically patient is doing well blood pressure is 123/55, not requiring any pressors. Patient was reevaluated today on 10/17/2023, patient remains in the ICU, remains on Lasix drip, still requiring 15 L high flow nasal cannula, and had to be placed at night on BiPAP 04/01/60%, his Lasix drip is 10 mg an hour. Creatinine is a bit down to 5.77 today, patient was seen by nephrology, and seriously considering renal replacement therapy. In 24 hours, patient had about 1 L negative fluid balance. WBC count is 11.2 hemoglobin 7.4 electrolytes are normal BUN is 79 creatinine 5.77 chest x-ray continues to show pulmonary edema, slightly better compared to the chest x-ray he had on admission Objective - Vital Signs Vital signs: Vital Signs Temp 97.7 F 10/17/23 08:00 Pulse 93 10/17/23 10:00 Resp 17 10/17/23 10:00 BP 134/62 10/17/23 10:00 Pulse Ox 90 L 10/17/23 10:00 FiO2 60 10/17/23 00:00 Intake & Output 10/16/23 10/17/23 10/17/23 18:59 06:59 18:59 Intake Total 777.667 319.167 200 Output Total 1150 1060 390 Balance -372.333 -740.833 -190 Weight 63.7 kg 61.1 kg Intake: IV 320 220 80 Dextrose 5% in Water 1, 100 000 ml @ 50 mls/hr IV . Q23H TIFFANIE with Sodium Bicarb (1 Meq/ml) 150 ml Rx#:[id number] Sodium Chloride 0.9% 1, 220 220 80 000 ml @ 20 mls/hr IV . Q24H TIFFANIE Rx#:[id number] Intake, IV Titration 157.667 99.167 Amount Furosemide 100 mg In 157.667 99.167 Sodium Chloride 0.9% 90 ml @ 10 MG/HR 10 mls/hr IV .Q10H TIFFANIE Rx#: [id number] Oral 300 120 Output: Urine 1150 1060 390 Other: Voiding Method Indwelling Catheter Indwelling Catheter Indwelling Catheter - Exam GENERAL EXAM: Revealed 87-year-old white male on 15 L high flow nasal cannula, in no distress HEAD: Normocephalic and atraumatic EYES: Normal reaction of pupils, equal size. NOSE: Clear with pink turbinates. THROAT: No erythema or exudates. NECK: No masses, no JVD. CHEST: No chest wall deformity. LUNGS: Rhonchi and crackles noted bilaterally. CVS: S1 and S2 normal with no audible murmur, regular rhythm. No extra heart sounds ABDOMEN: No hepatosplenomegaly, active bowel sounds, no guarding or rigidity. SKIN: No rashes CENTRAL NERVOUS SYSTEM: Alert and oriented x 3 no gross deficit, continues to say he wants to go home EXTREMITIES: Minimal bipedal edema - Labs CBC & Chem 7: 10/17/23 05:24 10/17/23 05:24 Labs: Abnormal Lab Results - Last 24 Hours (Table) 10/16/23 10/16/23 10/16/23 Range/Units 01:50 11:27 20:01 WBC (3.8-10.6) k/uL RBC (4.30-5.90) m/uL Hgb (13.0-17.5) gm/dL Hct (39.0-53.0) % MCV (80.0-100.0) fL MCHC (31.0-37.0) g/dL Neutrophils # (1.3-7.7) k/uL Lymphocytes # (1.0-4.8) k/uL Sodium (137-145) mmol/L BUN (9-20) mg/dL Creatinine (0.66-1.25) mg/dL Glucose (74-99) mg/dL POC Glucose (mg/dL) 187 H 229 H (70-110) mg/dL Calcium (8.4-10.2) mg/dL Magnesium (1.6-2.3) mg/dL Iron 44 L (65-175) UG/DL TIBC 218 L (228-460) UG/DL Transferrin 156.0 L (204.0-354.0) mg/dL 10/17/23 10/17/23 10/17/23 Range/Units 05:24 05:24 06:39 WBC 11.2 H (3.8-10.6) k/uL RBC 2.35 L (4.30-5.90) m/uL Hgb 7.4 L (13.0-17.5) gm/dL Hct 24.3 L (39.0-53.0) % MCV 103.5 H (80.0-100.0) fL MCHC 30.3 L (31.0-37.0) g/dL Neutrophils # 10.1 H (1.3-7.7) k/uL Lymphocytes # 0.3 L (1.0-4.8) k/uL Sodium 136 L (137-145) mmol/L BUN 79 H (9-20) mg/dL Creatinine 5.77 H (0.66-1.25) mg/dL Glucose 109 H (74-99) mg/dL POC Glucose (mg/dL) 135 H (70-110) mg/dL Calcium 7.8 L (8.4-10.2) mg/dL Magnesium 2.5 H (1.6-2.3) mg/dL Iron (65-175) UG/DL TIBC (228-460) UG/DL Transferrin (204.0-354.0) mg/dL Assessment and Plan Assessment: Impression: Acute on chronic hypoxemic respiratory failure secondary to fluid overload and acute COPD exacerbation. Chronic obstructive pulmonary disease Chronic hypoxemic respiratory failure, secondary to above, normally made on 2-3 L/min nasal cannula Current ongoing tobacco dependence Acute kidney injury/failure Acute severe non-anion gap metabolic acidosis, secondary to above Severe hyperkalemia, noted on admission, responding to medical treatment. Elevated troponins, in the setting of acute renal failure Suspect chronic anemia History of kidney stones no hydronephrosis noted on renal ultrasound Recommendation: Continue present supportive care measures Continue to monitor in the ICU Continue Lasix drip at 10 mg/h Continue bronchodilators Continue to monitor daily I's and O's, Nephrology is addressing the possibility of renal replacement therapy Overall prognosis remains extremely poor and guarded Will continue to follow and monitor in the ICU Time with Patient: Less than 30
[2023-10-17] MEDS: METOPROLOL TARTRATE 25 MG TAB PO SCH (11:10)
[2023-10-17 11:26] LABS: Glucose,Whole Blood 228 mg/dL (70-110)
--- NOTE | 2023-10-17 12:07 | P.PN ---
Subjective patient is seen for follow-up for acute kidney injury. Currently maintained on Lasix drip. Urine output 100-1 20 mL an hour. serum creatinine down to 5.7 today tolerating oral intake. Objective - Vital Signs Vital signs: Vital Signs Temp 97.7 F 10/17/23 08:00 Pulse 82 10/17/23 11:40 Resp 20 10/17/23 11:00 BP 140/70 10/17/23 11:00 Pulse Ox 90 L 10/17/23 11:00 FiO2 60 10/17/23 00:00 Intake & Output 10/16/23 10/17/23 10/17/23 18:59 06:59 18:59 Intake Total 777.667 319.167 220 Output Total 1150 1060 505 Balance -372.333 -740.833 -285 Weight 63.7 kg 61.1 kg Intake: IV 320 220 100 Dextrose 5% in Water 1, 100 000 ml @ 50 mls/hr IV . Q23H TIFFANIE with Sodium Bicarb (1 Meq/ml) 150 ml Rx#:[id number] Sodium Chloride 0.9% 1, 220 220 100 000 ml @ 20 mls/hr IV . Q24H TIFFANIE Rx#:[id number] Intake, IV Titration 157.667 99.167 Amount Furosemide 100 mg In 157.667 99.167 Sodium Chloride 0.9% 90 ml @ 10 MG/HR 10 mls/hr IV .Q10H TIFFANIE Rx#: [id number] Oral 300 120 Output: Urine 1150 1060 505 Other: Voiding Method Indwelling Catheter Indwelling Catheter Indwelling Catheter - Exam patient is awake, comfortable, no acute distress. Examination of the heart S1 and S2 Examination of the lungs decreased breath sounds at the bases Abdomen is soft nontender Examination of lower extremity shows edema 1+ bilaterally [employer] REPRES[employer]IVE exam grossly intact - Labs CBC & Chem 7: 10/17/23 05:24 10/17/23 05:24 Labs: Abnormal Lab Results - Last 24 Hours (Table) 10/16/23 10/16/23 10/17/23 Range/Units 01:50 20:01 05:24 WBC 11.2 H (3.8-10.6) k/uL RBC 2.35 L (4.30-5.90) m/uL Hgb 7.4 L (13.0-17.5) gm/dL Hct 24.3 L (39.0-53.0) % MCV 103.5 H (80.0-100.0) fL MCHC 30.3 L (31.0-37.0) g/dL Neutrophils # 10.1 H (1.3-7.7) k/uL Lymphocytes # 0.3 L (1.0-4.8) k/uL Sodium (137-145) mmol/L BUN (9-20) mg/dL Creatinine (0.66-1.25) mg/dL Glucose (74-99) mg/dL POC Glucose (mg/dL) 229 H (70-110) mg/dL Calcium (8.4-10.2) mg/dL Magnesium (1.6-2.3) mg/dL Iron 44 L (65-175) UG/DL TIBC 218 L (228-460) UG/DL Transferrin 156.0 L (204.0-354.0) mg/dL 10/17/23 10/17/23 10/17/23 Range/Units 05:24 06:39 11:24 WBC (3.8-10.6) k/uL RBC (4.30-5.90) m/uL Hgb (13.0-17.5) gm/dL Hct (39.0-53.0) % MCV (80.0-100.0) fL MCHC (31.0-37.0) g/dL Neutrophils # (1.3-7.7) k/uL Lymphocytes # (1.0-4.8) k/uL Sodium 136 L (137-145) mmol/L BUN 79 H (9-20) mg/dL Creatinine 5.77 H (0.66-1.25) mg/dL Glucose 109 H (74-99) mg/dL POC Glucose (mg/dL) 135 H 228 H (70-110) mg/dL Calcium 7.8 L (8.4-10.2) mg/dL Magnesium 2.5 H (1.6-2.3) mg/dL Iron (65-175) UG/DL TIBC (228-460) UG/DL Transferrin (204.0-354.0) mg/dL Assessment and Plan Assessment: 1. Acute kidney injury secondary to ATN. Creatinine 6.62 on admission and is down to 5.7 today. Creatinine in November 2014 was 1.9. No hydronephrosis noted on kidney ultrasound. Left kidney atrophic. 2. Metabolic acidosis secondary to acute kidney injury and IV fluids. Improved with bicarb drip. 3. Hyperkalemia secondary to acute kidney injury, acidosis and lisinopril. Improved with medical management. 4. Hypocalcemia secondary to acute kidney injury. Replaced. Better. 5. Benign hypertension. Controlled. 6. Acute Evoxac respiratory failure. 7. Volume overload. 8. Acute on chronic systolic CHF with ejection fraction of 40 to 45% with mild to moderate tricuspid regurgitation and moderate mitral regurgitation. 9. Anemia. no significant iron deficiency. Iron saturation borderline Plan: continue with Lasix drip. We can hold off on renal replacement therapy for now. IV iron 1
--- NOTE | 2023-10-17 12:16 | P.PN ---
Subjective Progress Note Date: 10/17/23 patient is a 87-year-old gentleman past medical history significant for COPD, hypertension was brought to the ER for shortness of breath. Patient had a wellness check done on him after neighbors were concerned for his safety. When EMS arrived at this point patient was found to be short of breath. Patient history of COPD and currently uses 3 L of oxygen. Patient stated that he was short of breath for the last few days. Patient also complaining of wheezing. There was no complaint of fever or chills. There is no complaint of nausea, or abdominal pain. Patient denies any recent falls. Patient was initially very resistant to the idea of coming to the hospital. EMS brought patient to [facility] Initial lab work done in the ER showed W6.2, hemoglobin 8.8, platelet count 141, sodium 148, potassium 8.1, BUN 67, creatinine 6.62, troponin 0.049, proBNP 90307 Influenza A not detected Influenza B not detected RSV not detected COVID-19 not detected EKG done in the ER showed heart rate of75 , no ST segment elevation or depression seen, no T-wave inversions seen. Chest x-ray done in the ER showed small bilateral pleural effusion, pulm vascular congestion, cardiomegaly Because of hyperkalemia and acute kidney injury, patient was admitted to ICU under internal medicine service 10/15. Patient seen and examined. Currently on 15 L of oxygen. Blood work done this morning showed WBC 9.6, hemoglobin 7.5, sodium 137, potassium 6, BUN 78, creatinine 6.14. States breathing is very bad. Denies any cough. Patient started on Lasix drip 10/16. Patient seen and examined. Patient continues to be very noncompliant, keeps saying that he wants to go home. Currently on 15 L of oxygen. Blood work done this morning showed WBC 11.2, hemoglobin 7.4 sodium 136, potassium 4.7, BUN 79, creatinine 5.77. REVIEW OF SYSTEMS: CONSTITUTIONAL: No fever, no malaise,. CARDIOVASCULAR: No chest pain, no palpitations, no syncope. PULMONARY: As mentioned above GASTROINTESTINAL: No diarrhea, no nausea, no vomiting, no abdominal pain. NEUROLOGICAL: No headaches, no weakness, PHYSICAL EXAMINATION: GENERAL: The patient is alert, extremely hard of hearing HEENT: Pupils are round and equally reacting to light. EOMI. No scleral icterus. No conjunctival pallor. Normocephalic, atraumatic. No pharyngeal erythema. No thyromegaly. CARDIOVASCULAR: S1 and S2 present. No murmurs, rubs, or gallops. PULMONARY: Coarse breath sound bilaterally, no wheezing or crackles. ABDOMEN: Soft, nontender, nondistended, normoactive bowel sounds. No palpable organomegaly. MUSCULOSKELETAL: No joint swelling or deformity. EXTREMITIES: No cyanosis, clubbing, or pedal edema. NEUROLOGICAL: Gross neurological examination did not reveal any focal deficits. SKIN: No rashes. Assessment and plan Acute on chronic hypoxemic respiratory failure acute COPD exacerbation. Acute kidney injury Acute CHF Acute severe non-anion gap metabolic acidosis, secondary to above Severe hyperkalemia Elevated troponins, in the setting of acute renal failure Anemia Current ongoing tobacco dependence History of kidney stones Monitor vital signs Monitor CBC Monitor CMP Continue telemetry monitoring Continue oxygen supplementation Strict I's and O's Daily weights Continue Lasix drip Continue breathing treatments Nephrology following ICU following Cardiology following Labs and medication were reviewed.. Continue same treatment. Continue with symptomatic treatment. Resume home medication. Monitor labs and vitals. DVT and GI prophylaxis. Further recommendations as per clinical course of the patient Dictation was produced using eTelemetry dictation software. please excuse any grammatical, word or spelling errors. Objective - Vital Signs Vital signs: Vital Signs Temp 98.1 F 10/17/23 12:00 Pulse 66 10/17/23 12:00 Resp 20 10/17/23 12:00 BP 157/69 10/17/23 12:00 Pulse Ox 94 L 10/17/23 12:00 FiO2 60 10/17/23 00:00 Intake & Output 10/16/23 10/17/23 10/17/23 18:59 06:59 18:59 Intake Total 777.667 319.167 220 Output Total 1150 1060 505 Balance -372.333 -740.833 -285 Weight 63.7 kg 61.1 kg Intake: IV 320 220 100 Dextrose 5% in Water 1, 100 000 ml @ 50 mls/hr IV . Q23H [facility] with Sodium Bicarb (1 Meq/ml) 150 ml Rx#:[id number] Sodium Chloride 0.9% 1 220 220 100 000 ml @ 20 mls/hr IV . Q24H [facility] Rx#:[id number] Intake, IV Titration 157.667 99.167 Amount Furosemide 100 mg In 157.667 99.167 Sodium Chloride 0.9% 90 ml @ 10 MG/HR 10 mls/hr IV .Q10H [facility] Rx#: [id number] Oral 300 120 Output: Urine 1150 1060 505 Other: Voiding Method Indwelling Catheter Indwelling Catheter Indwelling Catheter - Labs CBC & Chem 7: 10/17/23 05:24 10/17/23 05:24 Labs: Abnormal Lab Results - Last 24 Hours (Table) 10/16/23 10/16/23 10/17/23 Range/Units 01:50 20:01 05:24 WBC 11.2 H (3.8-10.6) k/uL RBC 2.35 L (4.30-5.90) m/uL Hgb 7.4 L (13.0-17.5) gm/dL Hct 24.3 L (39.0-53.0) % MCV 103.5 H (80.0-100.0) fL MCHC 30.3 L (31.0-37.0) g/dL Neutrophils # 10.1 H (1.3-7.7) k/uL Lymphocytes # 0.3 L (1.0-4.8) k/uL Sodium (137-145) mmol/L BUN (9-20) mg/dL Creatinine (0.66-1.25) mg/dL Glucose (74-99) mg/dL POC Glucose (mg/dL) 229 H (70-110) mg/dL Calcium (8.4-10.2) mg/dL Magnesium (1.6-2.3) mg/dL Iron 44 L (65-175) UG/DL TIBC 218 L (228-460) UG/DL Transferrin 156.0 L (204.0-354.0) mg/dL 10/17/23 10/17/23 10/17/23 Range/Units 05:24 06:39 11:24 WBC (3.8-10.6) k/uL RBC (4.30-5.90) m/uL Hgb (13.0-17.5) gm/dL Hct (39.0-53.0) % MCV (80.0-100.0) fL MCHC (31.0-37.0) g/dL Neutrophils # (1.3-7.7) k/uL Lymphocytes # (1.0-4.8) k/uL Sodium 136 L (137-145) mmol/L BUN 79 H (9-20) mg/dL Creatinine 5.77 H (0.66-1.25) mg/dL Glucose 109 H (74-99) mg/dL POC Glucose (mg/dL) 135 H 228 H (70-110) mg/dL Calcium 7.8 L (8.4-10.2) mg/dL Magnesium 2.5 H (1.6-2.3) mg/dL Iron (65-175) UG/DL TIBC (228-460) UG/DL Transferrin (204.0-354.0) mg/dL
[2023-10-17] MEDS ORDERED: ZINC OXIDE PASTE (Z-GUARD) 1 APPLIC TOPICAL PRN (15:37)
[2023-10-17 16:44] LABS: Glucose,Whole Blood 156 mg/dL (70-110)
[2023-10-17 19:55] LABS: Glucose,Whole Blood 227 mg/dL (70-110)
[2023-10-17] MEDS: SODIUM FERRIC GLUCONAT-SUCROSE 125 MG in SODIUM CHLORIDE 0.9% 100 ML IVPB ONE (20:30)
[2023-10-18] MEDS: DEXMEDETOMIDINE/0.9% NACL(PMX) 400 MCG in EMPTY BAG 1 BAG IV SCH (00:29)
[2023-10-18 05:33] LABS: Basophils % (A) 0 %; Eosinophils % (A) 1 %; HCT 24.4 % (39.0-53.0); HGB 7.4 gm/dL (13.0-17.5); Hypochromasia Moderate; Lymphocytes # (A) 0.3 k/uL (1.0-4.8); Lymphocytes % (A) 4 %; MCH 31.7 pg (25.0-35.0); MCHC 30.3 g/dL (31.0-37.0); MCV 104.5 fL (80.0-100.0); Macrocytosis Moderate; Monocytes # (A) 0.4 k/uL (0-1.0); Monocytes % (A) 5 %; Neutrophils # (A) 6.3 k/uL (1.3-7.7); Neutrophils % (A) 90 %; Platelet Count 125 k/uL (150-450); RBC 2.33 m/uL (4.30-5.90); RDW 14.7 % (11.5-15.5)
[2023-10-18 05:44] LABS: ALT 13 U/L (4-49); AST 23 U/L (17-59); African American GFR (CKD) 8 (>60 ml/min/1.73 sqM); Albumin 3.1 g/dL (3.5-5.0); Alkaline Phosphatase 47 U/L (38-126); Anion Gap 8 mmol/L; Blood Urea Nitrogen 94 mg/dL (9-20); Calcium 7.5 mg/dL (8.4-10.2); Carbon Dioxide 27 mmol/L (22-30); Chloride 98 mmol/L (98-107); Glucose 129 mg/dL (74-99); Non-African American GFR(CKD) 7 (>60 ml/min/1.73 sqM); Potassium 5.1 mmol/L (3.5-5.1); Sodium 133 mmol/L (137-145); Total Bilirubin 0.4 mg/dL (0.2-1.3); Total Protein 5.4 g/dL (6.3-8.2)
[2023-10-18 06:35] LABS: Glucose,Whole Blood 142 mg/dL (70-110)
--- NOTE | 2023-10-18 07:35 | XR ---
EXAMINATION TYPE: XR chest 1V portable DATE OF EXAM: 10/18/2023 COMPARISON: 10/17/2023 INDICATION: Hypoxia TECHNIQUE: Single frontal view of the chest is obtained. FINDINGS: The heart size is upper limits of normal. The pulmonary vasculature is prominent. Diffuse increased lung markings are present. This is greater in the right lower lobe. Correlate for c ongestive heart failure. Pneumonia in the right lower lobe should be considered. IMPRESSION: 1. Clinical correlation recommended for congestive heart failure. Findings appear improved from carson rison. 2. Consider pneumonia within the right lower lobe differential.
--- NOTE | 2023-10-18 08:36 | P.PN ---
Subjective Progress Note Date: 10/18/23 PROGRESS NOTE The patient is an 87-year-old male with a history of chronic tobacco use who presented with symptoms of progressive dyspnea, acute renal injury, hyperkalemia. He is in the ICU on BiPAP. He is not tolerating nasal cannula with episodes of hypoxemia. His potassium remains elevated. His blood pressure has been stable and he continues to be in sinus mechanism. He denies any chest discomfort. He feels that his breathing is stable. His echocardiogram showed an ejection fraction of 40 to 45%. His urinary output has been good. There is no evidence of malignant arrhythmia. October 16: The patient is awake and alert, anxious to go home. He denies any chest discomfort, dizziness or palpitations. He is on IV Lasix drip with improvement in his urinary output. He denies any nausea or vomiting. He continues to be in sinus mechanism. There is no evidence of hypotension or malignant arrhythmia. October 17: The patient has been anxious and confused at times. He is on his BiPAP. He continues to be in sinus mechanism on IV Lasix drip. There is no evidence of malignant arrhythmia. No vasopressors are needed. He continues to have an infiltrate in the right lung. His renal function are worse today with a creatinine of 6.31. His potassium is 5.1 Medications: Aspirin, Lipitor 40 mg daily, IV Lasix drip, insulin, methylprednisolone. Metoprolol 25 mg twice a day PHYSICAL EXAMINATION: Blood pressure 134/58 heart rate 48, somnolent and confused LUNGS: Bilateral crackles more on the right side HEART: Regular rate and rhythm, S1, S2. No S3. Systolic ejection murmur ABDOMEN: Soft, nontender, no organomegaly EXTREMETIES: No edema LAB: Hemoglobin 7.4, potassium 5.1. His BUN and creatinine 94 and 6.31 IMPRESSION: 1. Acute kidney injury with hyperkalemia, nonoliguric, hyperkalemia resolved. Urine output has improved with IV Lasix drip, may require renal replacement 2. Respiratory failure with probable combination of CHF and exacerbation of COPD. He has moderately reduced ejection fraction 3. History of hypertension 4. Chronic tobacco use 5. Troponin elevation probably secondary to acute renal injury. No evidence of acute coronary syndrome. 6. Anemia PLAN: 1. The patient may require dialysis 2. Continue present treatment with IV Lasix drip 3. Follow potassium and renal functions 4. Decrease the dose of beta-aicha 5. Prognosis remains guarded Objective - Vital Signs Vital signs: Vital Signs Temp 98 F 10/17/23 20:00 Pulse 48 L 10/18/23 07:55 Resp 12 10/18/23 07:00 BP 134/58 10/18/23 07:00 Pulse Ox 96 10/18/23 07:50 FiO2 40 10/18/23 07:50 Intake & Output 10/17/23 10/18/23 10/18/23 18:59 06:59 18:59 Intake Total 1166.833 463.297 50 Output Total 890 690 145 Balance 276.833 -226.703 -95 Weight 61.3 kg Intake: IV 220 340 50 Furosemide 100 mg In 10 Sodium Chloride 0.9% 90 ml @ 10 MG/HR 10 mls/hr IV .Q10H [facility] Rx#: [id number] Sodium Chloride 0.9% 1, 220 240 40 000 ml @ 20 mls/hr IV . Q24H [facility] Rx#:[id number] Sodium Ferric Gluconat- 100 Sucrose 125 mg In Sodium Chloride 0.9% 100 ml @ 100 mls/hr IVPB ONCE ONE Rx#:[id number] Intake, IV Titration 96.833 123.297 Amount Dexmedetomidine/0.9% NaCl 23.297 (Pmx) 400 mcg In Empty Bag 1 bag @ 0.2 MCG/KG/HR 3.055 mls/hr IV .Q24H [facility] Rx#:[id number] Furosemide 100 mg In 96.833 100 Sodium Chloride 0.9% 90 ml @ 10 MG/HR 10 mls/hr IV .Q10H [facility] Rx#: [id number] Oral 850 Output: Urine 890 690 145 Other: Voiding Method Indwelling Catheter Indwelling Catheter - Labs CBC & Chem 7: 10/18/23 05:13 10/18/23 05:13 Labs: Abnormal Lab Results - Last 24 Hours (Table) 10/17/23 10/17/23 10/17/23 Range/Units 11:24 16:43 19:54 RBC (4.30-5.90) m/uL Hgb (13.0-17.5) gm/dL Hct (39.0-53.0) % MCV (80.0-100.0) fL MCHC (31.0-37.0) g/dL Plt Count (150-450) k/uL Lymphocytes # (1.0-4.8) k/uL Sodium (137-145) mmol/L BUN (9-20) mg/dL Creatinine (0.66-1.25) mg/dL Glucose (74-99) mg/dL POC Glucose (mg/dL) 228 H 156 H 227 H (70-110) mg/dL Calcium (8.4-10.2) mg/dL Total Protein (6.3-8.2) g/dL Albumin (3.5-5.0) g/dL 10/18/23 10/18/23 10/18/23 Range/Units 05:13 05:13 06:34 RBC 2.33 L (4.30-5.90) m/uL Hgb 7.4 L (13.0-17.5) gm/dL Hct 24.4 L (39.0-53.0) % MCV 104.5 H (80.0-100.0) fL MCHC 30.3 L (31.0-37.0) g/dL Plt Count 125 L (150-450) k/uL Lymphocytes # 0.3 L (1.0-4.8) k/uL Sodium 133 L (137-145) mmol/L BUN 94 H (9-20) mg/dL Creatinine 6.31 H (0.66-1.25) mg/dL Glucose 129 H (74-99) mg/dL POC Glucose (mg/dL) 142 H (70-110) mg/dL Calcium 7.5 L (8.4-10.2) mg/dL Total Protein 5.4 L (6.3-8.2) g/dL Albumin 3.1 L (3.5-5.0) g/dL
[2023-10-18] MEDS: METOPROLOL TARTRATE 12.5 MG TAB PO SCH (09:19)
--- NOTE | 2023-10-18 10:51 | P.PN ---
Subjective Progress Note Date: 10/18/23 Principal diagnosis: Acute on chronic hypoxic respiratory failure secondary to acute fluid overload and underlying COPD with acute COPD exacerbation. Patient is an 87-year-old male with past medical history significant for COPD, chronic hypoxemic respiratory failure, hypertension, and kidney stones. He is quite upset to be in the hospital at this time, and he wants to go home. He reportedly lives by himself, and a neighbor had called for a wellbeing check yesterday evening. When EMS arrived, he was found to be hypoxic with an SpO2 of in the low 80s on his baseline 3 L/min nasal cannula. EMS then brought the patient to the emergency department. Patient was found to be in acute renal failure and severely hyperkalemic. BMP: Sodium 140, potassium 8.1, chloride 117, serum bicarb 12, BUN 67, creatinine 6.62, glucose 109. Lactic acid 1.1. Magnesium 2.5. Troponin 0.049. NT proBNP 36,500. CBC: WBC count 6.2, hemoglobin 8.8, hematocrit 30.6, platelets 141. Chest x-ray demonstrates cardiomegaly with pulmonary vascular congestion, small bilateral pleural effusions, and interstitial edema. Since his initial ER presentation, his oxygen demands increased and currently on 8 L/min high flow nasal cannula. He is alert and fully oriented, and currently refusing treatment. He is actually telling me that he is going to call a cab and leave this facility. He has not received any correction for his critically elevated potassium yet. ECG showing normal sinus rhythm with first-degree AV block and hyperacute T waves. I have repeatedly explained how critical his situation is, that if he were to leave at this time, he would likely had a cardiac arrest. He called his son, and I did speak to his son on the telephone about his father's critical condition. He is going to come up to the hospital and see his father. His son is encouraging him to stay in the hospital over the phone. After this, the patient has been more receptive to this interview and my questions. He states that he had kidney stones approximately 3 years ago. Denies NSAID use. Denies any trouble urinating such as dysuria, urinary frequency, hematuria, flank pain. Denies having an enlarged prostate. [id number] bladder scan reveals a minimal amount of urine, 140 cc. Patient is refusing urinary catheter. Nephrology has been consulted for management of his renal failure and hyperkalemia. As far as the patient's respiratory status. He states that has been getting worse over the last couple days, which he attributes to the heat outside. Denies any infectious-like symptoms such as fever, rhinorrhea, sore throat, cough, sputum production, hemoptysis. Denies any nausea or vomiting, diarrhea, or abdominal pain. He has been traveling by car [id number] to [place] over the last several weeks. Denies chest pain. Denies lower extremity swelling. He is audibly wheezing on examination. Does use inhalers and nebulizer at home, but is unsure of medications or doses. Reportedly a current smoker, approximately 1/2 to 1 ppd. Overall prognosis is guarded. Patient was reevaluated today on 10/16/2023, patient remains in the ICU, no significant improvement noted in his renal function, patient is making urine and responding to Lasix, however his chest x-ray is worsening, and I recommended that we start the patient on Lasix drip today. Nephrology is considering renal replacement therapy on this patient, however I believe the patient is going to be extremely reluctant and he will likely refuse it because I touch bases with him earlier regarding this, and the patient wants to be discharged home. Again it is a very difficult situation, patient is not very compliant, and he is resisting all kinds of treatment. Ultrasound of the kidneys showed no evidence of hydronephrosis. His metabolic acidosis did improve with bicarb drip, and this has been placed on hold for today. His hyperkalemia did improve with treatment. Blood pressure is also under control. Again his chest x-ray is showing worsening of his pulmonary edema. Labs today showed relatively normal WBC count, hemoglobin is 7.5. Platelets are 153. Potassium this morning is 5.0. It was 6.0 earlier. Patient remains on 15 L high flow nasal cannula and O2 saturation 97%. Hemodynamically patient is doing well blood pressure is 123/55, not requiring any pressors. Patient was reevaluated today on 10/17/2023, patient remains in the ICU, remains on Lasix drip, still requiring 15 L high flow nasal cannula, and had to be placed at night on BiPAP 04/01/60%, his Lasix drip is 10 mg an hour. Creatinine is a bit down to 5.77 today, patient was seen by nephrology, and seriously considering renal replacement therapy. In 24 hours, patient had about 1 L negative fluid balance. WBC count is 11.2 hemoglobin 7.4 electrolytes are normal BUN is 79 creatinine 5.77 chest x-ray continues to show pulmonary edema, slightly better compared to the chest x-ray he had on admission Was evaluated today on 10/18/2023, remains in the ICU, last night the patient became extremely agitated, had to be placed on Precedex which is now 0.4 mcg/kg/h. Remains on Lasix at 10 mg/h, putting out urine in the range of 60 to 80 cc/h. Chest x-ray is showing some improvement in his pulmonary edema. However considering the fact that his urine output is not as significant as it should be, I am recommending that we increase the Lasix to 20 mg/h drip. In the meantime patient had to be placed on BiPAP last night 40%. Nephrology was considering renal replacement therapy, and that is still being considered. Patient's clinical status remains marginal at best, I have a feeling that the patient may eventually require intubation mechanical ventilation, however we will try to manage for now conservatively unless condition gets any worse. WBC count today is 7 hemoglobin 7.4 potassium is 5.1 BUN is 94 creatinine is up aga in to 6.31 echocardiogram on this patient showed ejection fraction of 40 to 45% Objective - Vital Signs Vital signs: Vital Signs Temp 93.2 F L 10/18/23 08:00 Pulse 42 L 10/18/23 10:00 Resp 16 10/18/23 10:00 BP 132/51 10/18/23 10:00 Pulse Ox 96 10/18/23 10:00 FiO2 60 10/18/23 08:00 Intake & Output 10/17/23 10/18/23 10/18/23 18:59 06:59 18:59 Intake Total 1166.833 463.297 243.440 Output Total 890 690 285 Balance 276.833 -226.703 -41.560 Weight 61.3 kg Intake: IV 220 340 130 Furosemide 100 mg In 50 Sodium Chloride 0.9% 90 ml @ 20 MG/HR 20 mls/hr IV .Q5H [facility] Rx#:[id number] Sodium Chloride 0.9% 1, 220 240 80 000 ml @ 20 mls/hr IV . Q24H [facility] Rx#:[id number] Sodium Ferric Gluconat- 100 Sucrose 125 mg In Sodium Chloride 0.9% 100 ml @ 100 mls/hr IVPB ONCE ONE Rx#:[id number] Intake, IV Titration 96.833 123.297 113.440 Amount Dexmedetomidine/0.9% NaCl 23.297 28.107 (Pmx) 400 mcg In Empty Bag 1 bag @ 0.2 MCG/KG/HR 3.055 mls/hr IV .Q24H [facility] Rx#:[id number] Furosemide 100 mg In 96.833 100 85.333 Sodium Chloride 0.9% 90 ml @ 20 MG/HR 20 mls/hr IV .Q5H [facility] Rx#:[id number] Oral 850 Output: Urine 890 690 285 Other: Voiding Method Indwelling Catheter Indwelling Catheter Indwelling Catheter - Exam GENERAL EXAM: Revealed 87-year-old white male on BiPAP with FiO2 of 40% 04/01 HEAD: Normocephalic and atraumatic EYES: Normal reaction of pupils, equal size. NOSE: Clear with pink turbinates. THROAT: No erythema or exudates. NECK: No masses, no JVD. CHEST: No chest wall deformity. LUNGS: Rhonchi and crackles noted bilaterally. CVS: S1 and S2 normal with no audible murmur, regular rhythm. No extra heart sounds ABDOMEN: No hepatosplenomegaly, active bowel sounds, no guarding or rigidity. SKIN: No rashes CENTRAL NERVOUS SYSTEM: Alert and oriented x 3 no gross deficit, intermittently gets agitated and wants to go home EXTREMITIES: Trace of bipedal edema - Labs CBC & Chem 7: 10/18/23 05:13 10/18/23 05:13 Labs: Abnormal Lab Results - Last 24 Hours (Table) 10/17/23 10/17/23 10/17/23 Range/Units 11:24 16:43 19:54 RBC (4.30-5.90) m/uL Hgb (13.0-17.5) gm/dL Hct (39.0-53.0) % MCV (80.0-100.0) fL MCHC (31.0-37.0) g/dL Plt Count (150-450) k/uL Lymphocytes # (1.0-4.8) k/uL Sodium (137-145) mmol/L BUN (9-20) mg/dL Creatinine (0.66-1.25) mg/dL Glucose (74-99) mg/dL POC Glucose (mg/dL) 228 H 156 H 227 H (70-110) mg/dL Calcium (8.4-10.2) mg/dL Total Protein (6.3-8.2) g/dL Albumin (3.5-5.0) g/dL 10/18/23 10/18/23 10/18/23 Range/Units 05:13 05:13 06:34 RBC 2.33 L (4.30-5.90) m/uL Hgb 7.4 L (13.0-17.5) gm/dL Hct 24.4 L (39.0-53.0) % MCV 104.5 H (80.0-100.0) fL MCHC 30.3 L (31.0-37.0) g/dL Plt Count 125 L (150-450) k/uL Lymphocytes # 0.3 L (1.0-4.8) k/uL Sodium 133 L (137-145) mmol/L BUN 94 H (9-20) mg/dL Creatinine 6.31 H (0.66-1.25) mg/dL Glucose 129 H (74-99) mg/dL POC Glucose (mg/dL) 142 H (70-110) mg/dL Calcium 7.5 L (8.4-10.2) mg/dL Total Protein 5.4 L (6.3-8.2) g/dL Albumin 3.1 L (3.5-5.0) g/dL Assessment and Plan Assessment: Impression: Acute on chronic hypoxemic respiratory failure secondary to fluid overload and acute COPD exacerbation. Acute systolic congestive heart failure Chronic obstructive pulmonary disease Chronic hypoxemic respiratory failure, secondary to above, normally made on 2-3 L/min nasal cannula Current ongoing tobacco dependence Acute kidney injury/failure Acute severe non-anion gap metabolic acidosis, secondary to above Severe hyperkalemia, noted on admission, responding to medical treatment. Elevated troponins, in the setting of acute renal failure Suspect chronic anemia History of kidney stones no hydronephrosis noted on renal ultrasound Recommendation: Continue Lasix however the dose will be increased to 20 mg/h Nephrology to decide whether the patient may benefit from renal replacement therapy Continue present supportive care measures Continue to monitor in the ICU Continue bronchodilators for his underlying COPD Continue to monitor daily I's and O's, Overall prognosis remains extremely poor and guarded CODE STATUS remains full, I have a feeling that the patient may require eventually intubation mechanical ventilation Will continue to follow and monitor in the ICU Time with Patient: Less than 30
[2023-10-18 12:03] LABS: Glucose,Whole Blood 179 mg/dL (70-110)
--- NOTE | 2023-10-18 12:34 | P.PN ---
Subjective patient is seen for follow-up for acute kidney injury. maintained on Lasix drip. Urine output had decreased yesterday but has picked up again. Lasix drip was also increased to 20 mg an hour. Serum creatinine has worsened and is up to 6.3 today. Patient's mentation has worsened. He is currently maintained on Precedex for significant agitation and confusion. Family is present at bedside and son is agreeable to proceed with renal replacement therapy. Objective - Vital Signs Vital signs: Vital Signs Temp 93.2 F L 10/18/23 08:00 Pulse 44 L 10/18/23 11:30 Resp 16 10/18/23 10:00 BP 132/51 10/18/23 10:00 Pulse Ox 96 10/18/23 10:00 FiO2 40 10/18/23 11:23 Intake & Output 10/17/23 10/18/23 10/18/23 18:59 06:59 18:59 Intake Total 1166.833 463.297 243.440 Output Total 890 690 285 Balance 276.833 -226.703 -41.560 Weight 61.3 kg Intake: IV 220 340 130 Furosemide 100 mg In 50 Sodium Chloride 0.9% 90 ml @ 20 MG/HR 20 mls/hr IV .Q5H [facility] Rx#:[id number] Sodium Chloride 0.9% 1, 220 240 80 000 ml @ 20 mls/hr IV . Q24H [facility] Rx#:[id number] Sodium Ferric Gluconat- 100 Sucrose 125 mg In Sodium Chloride 0.9% 100 ml @ 100 mls/hr IVPB ONCE ONE Rx#:[id number] Intake, IV Titration 96.833 123.297 113.440 Amount Dexmedetomidine/0.9% NaCl 23.297 28.107 (Pmx) 400 mcg In Empty Bag 1 bag @ 0.2 MCG/KG/HR 3.055 mls/hr IV .Q24H [facility] Rx#:[id number] Furosemide 100 mg In 96.833 100 85.333 Sodium Chloride 0.9% 90 ml @ 20 MG/HR 20 mls/hr IV .Q5H [facility] Rx#:[id number] Oral 850 Output: Urine 890 690 285 Other: Voiding Method Indwelling Catheter Indwelling Catheter Indwelling Catheter - Exam patient is sleeping, comfortable, no acute distress. Examination of the heart S1 and S2 Examination of the lungs decreased breath sounds at the bases Abdomen is soft nontender Examination of lower extremity shows edema trace bilaterally - Labs CBC & Chem 7: 10/18/23 05:13 10/18/23 05:13 Labs: Abnormal Lab Results - Last 24 Hours (Table) 10/17/23 10/17/23 10/18/23 Range/Units 16:43 19:54 05:13 RBC (4.30-5.90) m/uL Hgb (13.0-17.5) gm/dL Hct (39.0-53.0) % MCV (80.0-100.0) fL MCHC (31.0-37.0) g/dL Plt Count (150-450) k/uL Lymphocytes # (1.0-4.8) k/uL Sodium 133 L (137-145) mmol/L BUN 94 H (9-20) mg/dL Creatinine 6.31 H (0.66-1.25) mg/dL Glucose 129 H (74-99) mg/dL POC Glucose (mg/dL) 156 H 227 H (70-110) mg/dL Calcium 7.5 L (8.4-10.2) mg/dL Total Protein 5.4 L (6.3-8.2) g/dL Albumin 3.1 L (3.5-5.0) g/dL 10/18/23 10/18/23 10/18/23 Range/Units 05:13 06:34 12:01 RBC 2.33 L (4.30-5.90) m/uL Hgb 7.4 L (13.0-17.5) gm/dL Hct 24.4 L (39.0-53.0) % MCV 104.5 H (80.0-100.0) fL MCHC 30.3 L (31.0-37.0) g/dL Plt Count 125 L (150-450) k/uL Lymphocytes # 0.3 L (1.0-4.8) k/uL Sodium (137-145) mmol/L BUN (9-20) mg/dL Creatinine (0.66-1.25) mg/dL Glucose (74-99) mg/dL POC Glucose (mg/dL) 142 H 179 H (70-110) mg/dL Calcium (8.4-10.2) mg/dL Total Protein (6.3-8.2) g/dL Albumin (3.5-5.0) g/dL Assessment and Plan Assessment: 1. Acute kidney injury secondary to ATN. Creatinine 6.62 on admission and was down to 5.7 yesterday but increased back to 6.3 today. Creatinine in November 2014 was 1.9. No hydronephrosis noted on kidney ultrasound. Left kidney atrophic. 2. Metabolic acidosis secondary to acute kidney injury and IV fluids. Improved with bicarb drip. 3. Hyperkalemia secondary to acute kidney injury, acidosis and lisinopril. Improved with medical management. 4. Hypocalcemia secondary to acute kidney injury. Replaced. Better. 5. Benign hypertension. Controlled. 6. Acute hypoxic respiratory failure. 7. Volume overload. 8. Acute on chronic systolic CHF with ejection fraction of 40 to 45% with mild to moderate tricuspid regurgitation and moderate mitral regurgitation. 9. Anemia. no significant iron deficiency. Iron saturation borderline Plan: continue with Lasix drip. proceed with renal replacement therapy. Hemodialysis today and repeat in a.m. Discussed with family and they are agreeable to proceed with dialysis.
--- NOTE | 2023-10-18 12:44 | P.PN ---
Subjective Progress Note Date: 10/18/23 patient is a 87-year-old gentleman past medical history significant for COPD, hypertension was brought to the ER for shortness of breath. Patient had a wellness check done on him after neighbors were concerned for his safety. When EMS arrived at this point patient was found to be short of breath. Patient history of COPD and currently uses 3 L of oxygen. Patient stated that he was short of breath for the last few days. Patient also complaining of wheezing. There was no complaint of fever or chills. There is no complaint of nausea, or abdominal pain. Patient denies any recent falls. Patient was initially very resistant to the idea of coming to the hospital. EMS brought patient to [facility] Initial lab work done in the ER showed W6.2, hemoglobin 8.8, platelet count 141, sodium 148, potassium 8.1, BUN 67, creatinine 6.62, troponin 0.049, proBNP 42689 Influenza A not detected Influenza B not detected RSV not detected COVID-19 not detected EKG done in the ER showed heart rate of75 , no ST segment elevation or depression seen, no T-wave inversions seen. Chest x-ray done in the ER showed small bilateral pleural effusion, pulm vascular congestion, cardiomegaly Because of hyperkalemia and acute kidney injury, patient was admitted to ICU under internal medicine service 10/15. Patient seen and examined. Currently on 15 L of oxygen. Blood work done this morning showed WBC 9.6, hemoglobin 7.5, sodium 137, potassium 6, BUN 78, creatinine 6.14. States breathing is very bad. Denies any cough. Patient started on Lasix drip 10/16. Patient seen and examined. Patient continues to be very noncompliant, keeps saying that he wants to go home. Currently on 15 L of oxygen. Blood work done this morning showed WBC 11.2, hemoglobin 7.4 sodium 136, potassium 4.7, BUN 79, creatinine 5.77. 10/17. Patient seen and examined. Currently on BiPAP. Patient is lethargic. Family at the bedside, all questions answered. Labs done this morning showed sodium 133, potassium 5.1, BUN 94, creatinine 6.31. Nephrology had recommended to start patient on dialysis, patient family agreeable REVIEW OF SYSTEMS: Cannot be obtained as patient is currently on BiPAP PHYSICAL EXAMINATION: GENERAL: The patient is lethargic HEENT: Pupils are round and equally reacting to light. EOMI. No scleral icterus. No conjunctival pallor. Normocephalic, atraumatic. No pharyngeal erythema. No thyromegaly. CARDIOVASCULAR: S1 and S2 present. No murmurs, rubs, or gallops. PULMONARY: Coarse breath sound bilaterally, no wheezing or crackles. ABDOMEN: Soft, nontender, nondistended, normoactive bowel sounds. No palpable organomegaly. MUSCULOSKELETAL: No joint swelling or deformity. EXTREMITIES: No cyanosis, clubbing, or pedal edema. NEUROLOGICAL: Gross neurological examination did not reveal any focal deficits. SKIN: No rashes. Assessment and plan Acute on chronic hypoxemic respiratory failure acute COPD exacerbation. Acute kidney injury Acute CHF Acute severe non-anion gap metabolic acidosis, secondary to above Severe hyperkalemia Elevated troponins, in the setting of acute renal failure Anemia Current ongoing tobacco dependence History of kidney stones Monitor vital signs Monitor CBC Monitor CMP Continue telemetry monitoring BiPAP as needed Continue bronchopulmonary hygiene Strict I's and O's Daily weights Continue Lasix drip Continue Precedex drip Continue breathing treatments Nephrology following, they have discussed with patient family regarding renal replacement therapy, family agreeable, patient to proceed with dialysis ICU following Cardiology following Labs and medication were reviewed.. Continue same treatment. Continue with symptomatic treatment. Resume home medication. Monitor labs and vitals. DVT and GI prophylaxis. Further recommendations as per clinical course of the patient Dictation was produced using [employer] dictation software. please excuse any grammatical, word or spelling errors. Objective - Vital Signs Vital signs: Vital Signs Temp 94.0 F L 10/18/23 12:00 Pulse 47 L 10/18/23 12:00 Resp 18 10/18/23 12:00 BP 128/52 10/18/23 12:00 Pulse Ox 97 10/18/23 12:00 FiO2 60 10/18/23 12:00 Intake & Output 10/17/23 10/18/23 10/18/23 18:59 06:59 18:59 Intake Total 1166.833 463.297 243.440 Output Total 890 690 285 Balance 276.833 -226.703 -41.560 Weight 61.3 kg Intake: IV 220 340 130 Furosemide 100 mg In 50 Sodium Chloride 0.9% 90 ml @ 20 MG/HR 20 mls/hr IV .Q5H [facility] Rx#:[id number] Sodium Chloride 0.9% 1, 220 240 80 000 ml @ 20 mls/hr IV . Q24H [facility] Rx#:[id number] Sodium Ferric Gluconat- 100 Sucrose 125 mg In Sodium Chloride 0.9% 100 ml @ 100 mls/hr IVPB ONCE ONE Rx#:[id number] Intake, IV Titration 96.833 123.297 113.440 Amount Dexmedetomidine/0.9% NaCl 23.297 28.107 (Pmx) 400 mcg In Empty Bag 1 bag @ 0.2 MCG/KG/HR 3.055 mls/hr IV .Q24H [facility] Rx#:[id number] Furosemide 100 mg In 96.833 100 85.333 Sodium Chloride 0.9% 90 ml @ 20 MG/HR 20 mls/hr IV .Q5H [facility] Rx#:[id number] Oral 850 Output: Urine 890 690 285 Other: Voiding Method Indwelling Catheter Indwelling Catheter Indwelling Catheter - Labs CBC & Chem 7: 10/18/23 05:13 10/18/23 05:13 Labs: Abnormal Lab Results - Last 24 Hours (Table) 10/17/23 10/17/23 10/18/23 Range/Units 16:43 19:54 05:13 RBC (4.30-5.90) m/uL Hgb (13.0-17.5) gm/dL Hct (39.0-53.0) % MCV (80.0-100.0) fL MCHC (31.0-37.0) g/dL Plt Count (150-450) k/uL Lymphocytes # (1.0-4.8) k/uL Sodium 133 L (137-145) mmol/L BUN 94 H (9-20) mg/dL Creatinine 6.31 H (0.66-1.25) mg/dL Glucose 129 H (74-99) mg/dL POC Glucose (mg/dL) 156 H 227 H (70-110) mg/dL Calcium 7.5 L (8.4-10.2) mg/dL Total Protein 5.4 L (6.3-8.2) g/dL Albumin 3.1 L (3.5-5.0) g/dL 10/18/23 10/18/23 10/18/23 Range/Units 05:13 06:34 12:01 RBC 2.33 L (4.30-5.90) m/uL Hgb 7.4 L (13.0-17.5) gm/dL Hct 24.4 L (39.0-53.0) % MCV 104.5 H (80.0-100.0) fL MCHC 30.3 L (31.0-37.0) g/dL Plt Count 125 L (150-450) k/uL Lymphocytes # 0.3 L (1.0-4.8) k/uL Sodium (137-145) mmol/L BUN (9-20) mg/dL Creatinine (0.66-1.25) mg/dL Glucose (74-99) mg/dL POC Glucose (mg/dL) 142 H 179 H (70-110) mg/dL Calcium (8.4-10.2) mg/dL Total Protein (6.3-8.2) g/dL Albumin (3.5-5.0) g/dL
[2023-10-18] MEDS: INSULIN ASPART (NovoLOG) 100 UNIT/ML VIAL SQ SCH (13:00)
[2023-10-18] MEDS: HEPARIN SODIUM 1,000 UN/ML (10ML VL) IVP ONE (13:48)
[2023-10-18] MEDS: LIDOCAINE 1% INJ 10MG/ML (20 ML MDV) SQ ONE (13:48)
--- NOTE | 2023-10-18 14:31 | OP ---
OPERATIVE REPORT DATE OF SERVICE : PREOPERATIVE DIAGNOSES: Acute chronic renal failure, congestive heart failure, metabolic acidosis. Consulted for placement of dialysis catheter. POSTOPERATIVE DIAGNOSES: Acute chronic renal failure, congestive heart failure, metabolic acidosis. Consulted for placement of dialysis catheter. DESCRIPTION OF PROCEDURE: The patient was seen in the intensive care unit. Right groin was prepped and draped applied in a sterile manner. 1% lidocaine infiltrated in the groin area. Ultrasound- guided micropuncture into the right femoral vein. Micropuncture guidewire was passed. Then, we passed a regular guidewire. Then, we passed a dilator on the top of the guidewire without any resistance. Then, triple-lumen dialysis catheter placed on the top of the guidewire. Guidewire was removed. Flushed with heparin saline and hep- locked, secured with 3-0 nylon. Patient tolerated the procedure well. MMODL / ESEQUIELN: [id number] /
[2023-10-18 17:34] LABS: Glucose,Whole Blood 107 mg/dL (70-110)
[2023-10-18 20:04] LABS: Glucose,Whole Blood 134 mg/dL (70-110)
[2023-10-18 23:24] LABS: Hepatitis B Surface Antigen Nonreactive (Nonreactive)
[2023-10-18 23:37] LABS: Glucose,Whole Blood 196 mg/dL (70-110)
[2023-10-18 23:39] LABS: Hepatitis B Surface AB- Quant 3.5 mIU/mL
[2023-10-18] MEDS: FUROSEMIDE 10 MG/ML 10 ML VIAL IV SCH (23:58)
[2023-10-19] MEDS: IPRATROPIUM-ALBUTEROL 3 ML NEB INHALATION PRN (03:47)
[2023-10-19 05:56] LABS: Glucose,Whole Blood 158 mg/dL (70-110)
[2023-10-19 06:48] LABS: HCT 23.6 % (39.0-53.0); HGB 7.1 gm/dL (13.0-17.5); Hypochromasia Moderate; MCV 103.6 fL (80.0-100.0); Macrocytosis Slight; Mean Platelet Volume 9.6; Platelet Count 122 k/uL (150-450); RBC 2.28 m/uL (4.30-5.90); RDW 14.9 % (11.5-15.5); WBC 6.6 k/uL (3.8-10.6)
--- NOTE | 2023-10-19 07:20 | P.PN ---
Subjective Progress Note Date: 10/19/23 This is an 87-year-old gentleman with a past medical history significant for COPD and chronic hypoxic respiratory failure on oxygen at home as well as diagnosis of cardiomyopathy with EF between 40 to 45% as well as chronic kidney disease and multiple comorbid conditions who was admitted to the hospital with acute hypoxic respiratory failure secondary to COPD exacerbation and CHF exacerbation and also he was found to be in acute renal failure which was oliguric renal failure. He was placed on Lasix drip and subsequently underwent dialysis yesterday. October 19, 2023 The patient was seen this morning. He is feeling better. He stated that the shortness of breath has improved. He continues to be hypoxic requiring oxygen and he was on oxygen at home. No pain in the chest. Hemodynamically he is stable. The hemoglobin is low but stable. He might undergo another dialysis later on today. He continues to be on Lasix IV. Nephrology service. Examination is remarkable for regular rhythm with a soft systolic murmur at the right upper sternal border and bilateral rhonchi and no edema was noted in the lower extremities Assessment Acute hypoxic respiratory failure CHF exacerbation Cardiomyopathy with EF between 40 to 45% COPD exacerbation Renal failure required dialysis Multiple comorbid conditions Plan Continue the current medical regimen Continue monitor the hemoglobin and kidney function Consider maximize medical treatment for cardiomyopathy Follow-up with the patient Objective - Vital Signs Vital signs: Vital Signs Temp 97.8 F 10/19/23 00:00 Pulse 65 10/19/23 06:00 Resp 14 10/19/23 06:00 BP 141/61 10/19/23 06:00 Pulse Ox 100 10/19/23 06:00 FiO2 40 10/19/23 04:00 Intake & Output 10/18/23 10/19/23 10/19/23 18:59 06:59 18:59 Intake Total 1302.266 298.476 Output Total 2080 890 Balance -777.734 -591.524 Weight 61.7 kg Intake: IV 450 240 Furosemide 100 mg In 210 Sodium Chloride 0.9% 90 ml @ 20 MG/HR 20 mls/hr IV .Q5H [facility] Rx#:[id number] Sodium Chloride 0.9% 1, 240 240 000 ml @ 20 mls/hr IV . Q24H [facility] Rx#:[id number] Intake, IV Titration 252.266 58.476 Amount Dexmedetomidine/0.9% NaCl 66.933 58.476 (Pmx) 400 mcg In Empty Bag 1 bag @ 0.2 MCG/KG/HR 3.055 mls/hr IV .Q24H [facility] Rx#:[id number] Furosemide 100 mg In 185.333 Sodium Chloride 0.9% 90 ml @ 20 MG/HR 20 mls/hr IV .Q5H [facility] Rx#:[id number] Hemodialysis 600 Output: Urine 680 890 Hemodialysis 1400 Other: Voiding Method Indwelling Catheter Indwelling Catheter - Labs CBC & Chem 7: 10/19/23 06:20 10/18/23 05:13 Labs: Abnormal Lab Results - Last 24 Hours (Table) 10/18/23 10/18/23 10/18/23 Range/Units 12:01 20:02 23:35 RBC (4.30-5.90) m/uL Hgb (13.0-17.5) gm/dL Hct (39.0-53.0) % MCV (80.0-100.0) fL MCHC (31.0-37.0) g/dL Plt Count (150-450) k/uL POC Glucose (mg/dL) 179 H 134 H 196 H (70-110) mg/dL 10/19/23 10/19/23 Range/Units 05:53 06:20 RBC 2.28 L (4.30-5.90) m/uL Hgb 7.1 L (13.0-17.5) gm/dL Hct 23.6 L (39.0-53.0) % MCV 103.6 H (80.0-100.0) fL MCHC 30.0 L (31.0-37.0) g/dL Plt Count 122 L (150-450) k/uL POC Glucose (mg/dL) 158 H (70-110) mg/dL
[2023-10-19 07:26] LABS: African American GFR (CKD) 14 (>60 ml/min/1.73 sqM); Anion Gap 6 mmol/L; Blood Urea Nitrogen 72 mg/dL (9-20); Calcium 7.8 mg/dL (8.4-10.2); Carbon Dioxide 28 mmol/L (22-30); Chloride 99 mmol/L (98-107); Glucose 146 mg/dL (74-99); Non-African American GFR(CKD) 12 (>60 ml/min/1.73 sqM); Potassium 4.6 mmol/L (3.5-5.1); Sodium 133 mmol/L (137-145)
--- NOTE | 2023-10-19 08:15 | XR ---
EXAMINATION TYPE: XR chest 1V portable DATE OF EXAM: 10/19/2023 5:13 AM CLINICAL INDICATION:Male, 87 years old with history of bipap dependent respiratory failure; [facility] COMPARISON: Chest radiographs from 10/18/2023 TECHNIQUE: XR chest 1V portable Frontal view of the chest. FINDINGS: Lungs/Pleura: Prominent interstitial lung markings are seen scattered throughout the lungs. No eviden ce of focal consolidation, pneumothorax or pleural effusion. Pulmonary vascularity: Pulmonary vascular congestion. Heart/mediastinum: Cardiomediastinal silhouette is enlarged and stable. Musculoskeletal: No acute osseous pathology. IMPRESSION: Similar aeration of the lung with increased interstitial lung markings.
[2023-10-19 11:11] LABS: Glucose,Whole Blood 332 mg/dL (70-110)
--- NOTE | 2023-10-19 11:35 | P.PN ---
Subjective patient is seen for follow-up for acute kidney injury. Started renal replacement therapy on 10/18/2023 for worsening renal function, volume overload and worsening mentation. Patient had 800 mL of UF yesterday. He is currently seen on hemodialysis. Mentation is much improved. Goal UF about 2 L today. urine output at 75 200 ML per hour. Objective - Vital Signs Vital signs: Vital Signs Temp 97.8 F 10/19/23 00:00 Pulse 70 10/19/23 08:54 Resp 13 10/19/23 07:00 BP 137/50 10/19/23 07:00 Pulse Ox 100 10/19/23 08:44 FiO2 40 10/19/23 04:00 Intake & Output 10/18/23 10/19/23 10/19/23 18:59 06:59 18:59 Intake Total 1302.266 298.476 40 Output Total 2080 890 100 Balance -777.734 -591.524 -60 Weight 61.7 kg Intake: IV 450 240 40 Furosemide 100 mg In 210 Sodium Chloride 0.9% 90 ml @ 20 MG/HR 20 mls/hr IV .Q5H [facility] Rx#:[id number] Sodium Chloride 0.9% 1, 240 240 40 000 ml @ 20 mls/hr IV . Q24H [facility] Rx#:[id number] Intake, IV Titration 252.266 58.476 Amount Dexmedetomidine/0.9% NaCl 66.933 58.476 (Pmx) 400 mcg In Empty Bag 1 bag @ 0.2 MCG/KG/HR 3.055 mls/hr IV .Q24H [facility] Rx#:[id number] Furosemide 100 mg In 185.333 Sodium Chloride 0.9% 90 ml @ 20 MG/HR 20 mls/hr IV .Q5H [facility] Rx#:[id number] Hemodialysis 600 Output: Urine 680 890 100 Hemodialysis 1400 Other: Voiding Method Indwelling Catheter Indwelling Catheter - Exam patient is awake, comfortable, no acute distress. mentation has improved. Examination of the heart S1 and S2 Examination of the lungs decreased breath sounds at the bases Abdomen is soft nontender Examination of lower extremity shows edema trace bilaterally - Labs CBC & Chem 7: 10/19/23 06:20 10/19/23 06:20 Labs: Abnormal Lab Results - Last 24 Hours (Table) 0610/18/23 10/18/23 Range/Units 12:01 20:02 23:35 RBC (4.30-5.90) m/uL Hgb (13.0-17.5) gm/dL Hct (39.0-53.0) % MCV (80.0-100.0) fL MCHC (31.0-37.0) g/dL Plt Count (150-450) k/uL Sodium (137-145) mmol/L BUN (9-20) mg/dL Creatinine (0.66-1.25) mg/dL Glucose (74-99) mg/dL POC Glucose (mg/dL) 179 H 134 H 196 H (70-110) mg/dL Calcium (8.4-10.2) mg/dL 10/19/23 10/19/23 10/19/23 Range/Units 05:53 06:20 06:20 RBC 2.28 L (4.30-5.90) m/uL Hgb 7.1 L (13.0-17.5) gm/dL Hct 23.6 L (39.0-53.0) % MCV 103.6 H (80.0-100.0) fL MCHC 30.0 L (31.0-37.0) g/dL Plt Count 122 L (150-450) k/uL Sodium 133 L (137-145) mmol/L BUN 72 H (9-20) mg/dL Creatinine 4.19 H (0.66-1.25) mg/dL Glucose 146 H (74-99) mg/dL POC Glucose (mg/dL) 158 H (70-110) mg/dL Calcium 7.8 L (8.4-10.2) mg/dL 10/19/23 Range/Units 11:10 RBC (4.30-5.90) m/uL Hgb (13.0-17.5) gm/dL Hct (39.0-53.0) % MCV (80.0-100.0) fL MCHC (31.0-37.0) g/dL Plt Count (150-450) k/uL Sodium (137-145) mmol/L BUN (9-20) mg/dL Creatinine (0.66-1.25) mg/dL Glucose (74-99) mg/dL POC Glucose (mg/dL) 332 H (70-110) mg/dL Calcium (8.4-10.2) mg/dL Assessment and Plan Assessment: 1. Acute kidney injury secondary to ATN. Creatinine in November 2014 was 1.9. Started hemodialysis on 10/18/2023/renal function volume overload and altered mentation. No hydronephrosis noted on kidney ultrasound. Left kidney atrophic. 2. Metabolic acidosis secondary to acute kidney injury and IV fluids. Improved with bicarb drip. 3. Hyperkalemia secondary to acute kidney injury, acidosis and lisinopril. Improved with medical management. 4. Hypocalcemia secondary to acute kidney injury. Replaced. Better. 5. Benign hypertension. Controlled. 6. Acute hypoxic respiratory failure. 7. Volume overload. 8. Acute on chronic systolic CHF with ejection fraction of 40 to 45% with mild to moderate tricuspid regurgitation and moderate mitral regurgitation. 9. Anemia. no significant iron deficiency. Iron saturation borderline. Status post 1 dose of Ferrlecit Plan: hemodialysis today with UF of about 2 L. Repeat hemodialysis in a.m. Continue with current dose of IV Lasix. Add Aranesp
--- NOTE | 2023-10-19 13:28 | P.PN ---
Subjective Progress Note Date: 10/19/23 Principal diagnosis: Acute kidney injury, hyperkalemia, COPD, CHF. Patient is an 87-year-old male with past medical history significant for COPD, chronic hypoxemic respiratory failure, hypertension, and kidney stones. He is quite upset to be in the hospital at this time, and he wants to go home. He reportedly lives by himself, and a neighbor had called for a wellbeing check yesterday evening. When EMS arrived, he was found to be hypoxic with an SpO2 of in the low 80s on his baseline 3 L/min nasal cannula. EMS then brought the patient to the emergency department. Patient was found to be in acute renal failure and severely hyperkalemic. BMP: Sodium 140, potassium 8.1, chloride 117, serum bicarb 12, BUN 67, creatinine 6.62, glucose 109. Lactic acid 1.1. Magnesium 2.5. Troponin 0.049. NT proBNP 36,500. CBC: WBC count 6.2, hemoglobin 8.8, hematocrit 30.6, platelets 141. Chest x-ray demonstrates cardiomegaly with pulmonary vascular congestion, small bilateral pleural effusions, and interstitial edema. Since his initial ER presentation, his oxygen demands increased and currently on 8 L/min high flow nasal cannula. He is alert and fully oriented, and currently refusing treatment. He is actually telling me that he is going to call a cab and leave this facility. He has not received any correction for his critically elevated potassium yet. ECG showing normal sinus rhythm with first-degree AV block and hyperacute T waves. I have repeatedly explained how critical his situation is, that if he were to leave at this time, he would likely had a cardiac arrest. He called his son, and I did speak to his son on the telephone about his father's critical condition. He is going to come up to the hospital and see his father. His son is encouraging him to stay in the hospital over the phone. After this, the patient has been more receptive to this interview and my questions. He states that he had kidney stones approximately 3 years ago. Denies NSAID use. Denies any trouble urinating such as dysuria, urinary frequency, hematuria, flank pain. Denies having an enlarged prostate. [id number] bladder scan reveals a minimal amount of urine, 140 cc. Patient is refusing urinary catheter. Nephrology has been consulted for management of his renal failure and hyperkalemia. As far as the patient's respiratory status. He states that has been getting worse over the last couple days, which he attributes to the heat outside. Denies any infectious-like symptoms such as fever, rhinorrhea, sore throat, cough, sputum production, hemoptysis. Denies any nausea or vomiting, diarrhea, or abdominal pain. He has been traveling by car [id number] to [place] over the last several weeks. Denies chest pain. Denies lower extremity swelling. He is audibly wheezing on examination. Does use inhalers and nebulizer at home, but is unsure of medications or doses. Reportedly a current smoker, approximately 1/2 to 1 ppd. Overall prognosis is guarded. Patient was reevaluated today on 10/16/2023, patient remains in the ICU, no significant improvement noted in his renal function, patient is making urine and responding to Lasix, however his chest x-ray is worsening, and I recommended that we start the patient on Lasix drip today. Nephrology is considering renal replacement therapy on this patient, however I believe the patient is going to be extremely reluctant and he will likely refuse it because I touch bases with him earlier regarding this, and the patient wants to be discharged home. Again it is a very difficult situation, patient is not very compliant, and he is resisting all kinds of treatment. Ultrasound of the kidneys showed no evidence of hydronephrosis. His metabolic acidosis did improve with bicarb drip, and this has been placed on hold for today. His hyperkalemia did improve with treatment. Blood pressure is also under control. Again his chest x-ray is showing worsening of his pulmonary edema. Labs today showed relatively normal WBC count, hemoglobin is 7.5. Platelets are 153. Potassium this morning is 5.0. It was 6.0 earlier. Patient remains on 15 L high flow nasal cannula and O2 saturation 97%. Hemodynamically patient is doing well blood pressure is 123/55, not requiring any pressors. Patient was reevaluated today on 10/17/2023, patient remains in the ICU, remains on Lasix drip, still requiring 15 L high flow nasal cannula, and had to be placed at night on BiPAP 04/01/60%, his Lasix drip is 10 mg an hour. Creatinine is a bit down to 5.77 today, patient was seen by nephrology, and seriously considering renal replacement therapy. In 24 hours, patient had about 1 L negative fluid balance. WBC count is 11.2 hemoglobin 7.4 electrolytes are normal BUN is 79 creatinine 5.77 chest x-ray continues to show pulmonary edema, slightly better compared to the chest x-ray he had on admission Was evaluated today on 10/18/2023, remains in the ICU, last night the patient became extremely agitated, had to be placed on Precedex which is now 0.4 mcg/kg/h. Remains on Lasix at 10 mg/h, putting out urine in the range of 60 to 80 cc/h. Chest x-ray is showing some improvement in his pulmonary edema. However considering the fact that his urine output is not as significant as it should be, I am recommending that we increase the Lasix to 20 mg/h drip. In the meantime patient had to be placed on BiPAP last night 12//40%. Nephrology was considering renal replacement therapy, and that is still being considered. Patient's clinical status remains marginal at best, I have a feeling that the patient may eventually require intubation mechanical ventilation, however we will try to manage for now conservatively unless condition gets any worse. WBC count today is 7 hemoglobin 7.4 potassium is 5.1 BUN is 94 creatinine is up again to 6.31 echocardiogram on this patient showed ejection fraction of 40 to 45% Progress note dated October 19, 2023. The patient is seen today in room 259. He is actually undergoing hemodialysis. Hemodialysis started yesterday. 800 cc was removed yesterday, and 2 L will be removed today, should the blood pressure remained stable. The patient was admitted to the hospital on October 14, with a diagnosis of acute kidney injury, and hyperkalemia, as well as COPD, and CHF. The patient was on 15 L high flow nasal O2, which has been turned down to 13 L. He is getting saline at KVO. He did use BiPAP throughout the night, with settings of 12/6, and 40%. Current laboratory data includes a white count 6.6, hemoglobin 7.1, hematocrit 23.6, and platelet count of 122,000. Sodium 133, potassium 4.6, chloride 99, CO2 28, BUN 72, creatinine 4.19. Glucose is 332. Calcium is 7.8. Chest x-ray shows some interstitial changes, consistent with interstitial edema and pulmonary vascular congestion. Objective - Vital Signs Vital signs: Vital Signs Temp 97.7 F 10/19/23 11:32 Pulse 78 10/19/23 12:00 Resp 18 10/19/23 11:32 BP 158/59 10/19/23 11:32 Pulse Ox 99 10/19/23 11:50 FiO2 40 10/19/23 04:00 Intake & Output 10/18/23 10/19/23 10/19/23 18:59 06:59 18:59 Intake Total 1302.266 298.476 640 Output Total 2080 890 2700 Balance -777.734 -591.524 -2060 Weight 61.7 kg Intake: IV 450 240 40 Furosemide 100 mg In 210 Sodium Chloride 0.9% 90 ml @ 20 MG/HR 20 mls/hr IV .Q5H TIFF[facility]IE Rx#:[id number] Sodium Chloride 0.9% 1, 240 240 40 000 ml @ 20 mls/hr IV . Q24H TIFF[facility]IE Rx#:[id number] Intake, IV Titration 252.266 58.476 Amount Dexmedetomidine/0.9% NaCl 66.933 58.476 (Pmx) 400 mcg In Empty Bag 1 bag @ 0.2 MCG/KG/HR 3.055 mls/hr IV .Q24H TIFF[facility]IE Rx#:[id number] Furosemide 100 mg In 185.333 Sodium Chloride 0.9% 90 ml @ 20 MG/HR 20 mls/hr IV .Q5H TIFFANIE Rx#:[id number] Hemodialysis 600 600 Output: Urine 680 890 100 Hemodialysis 1400 2600 Other: Voiding Method Indwelling Catheter Indwelling Catheter - Exam No acute distress, oriented 3. Frail appearing, currently on high flow nasal cannula. HEENT examination is grossly unremarkable. Mucous membranes are moist. No oral lesions. Neck supple. Full range of motion. No adenopathy thyromegaly or neck vein distention. Cardiovascular examination reveals regular rhythm rate. S1-S2 normal. No S3 or S4. No discernible murmur noted. Heart rate 78 bpm. Heart sounds are distant. Lungs reveal scattered crackles. Breath sounds equal. No wheezes or rhonchi. Breath sounds are equal bilaterally. Saturations are 99%. Abdomen soft bowel sounds are heard. No masses or tenderness. Extremities are intact. No cyanosis or clubbing. Trace lower extremity edema. Skin is without rash or lesion. Neurologic examination is brief but nonfocal. - Labs CBC & Chem 7: 10/19/23 06:20 10/19/23 06:20 Labs: Abnormal Lab Results - Last 24 Hours (Table) 10/18/23 10/18/23 10/19/23 Range/Units 20:02 23:35 05:53 RBC (4.30-5.90) m/uL Hgb (13.0-17.5) gm/dL Hct (39.0-53.0) % MCV (80.0-100.0) fL MCHC (31.0-37.0) g/dL Plt Count (150-450) k/uL Sodium (137-145) mmol/L BUN (9-20) mg/dL Creatinine (0.66-1.25) mg/dL Glucose (74-99) mg/dL POC Glucose (mg/dL) 134 H 196 H 158 H (70-110) mg/dL Calcium (8.4-10.2) mg/dL 10/19/23 10/19/23 10/19/23 Range/Units 06:20 06:20 11:10 RBC 2.28 L (4.30-5.90) m/uL Hgb 7.1 L (13.0-17.5) gm/dL Hct 23.6 L (39.0-53.0) % MCV 103.6 H (80.0-100.0) fL MCHC 30.0 L (31.0-37.0) g/dL Plt Count 122 L (150-450) k/uL Sodium 133 L (137-145) mmol/L BUN 72 H (9-20) mg/dL Creatinine 4.19 H (0.66-1.25) mg/dL Glucose 146 H (74-99) mg/dL POC Glucose (mg/dL) 332 H (70-110) mg/dL Calcium 7.8 L (8.4-10.2) mg/dL Assessment and Plan Assessment: Acute on chronic hypoxemic respiratory failure secondary to fluid overload, and acute COPD exacerbation. Acute systolic CHF. History of chronic obstructive pulmonary disease. Chronic hypoxemic respiratory failure, on home O2 between 2 to 3 L/min. Current and ongoing tobacco dependence. Acute kidney injury/failure. Acute severe non-anion gap metabolic acidosis. Severe hyperkalemia. Anemia of chronic disease. History of kidney stones. Plan: Plan dated October 19, 2023. The patient is seen today in room 259. The patient had hemodialysis yesterday, and will have hemodialysis today. He is currently on high flow nasal cannula at 15 L, turned down to 13 L. He is getting saline at KVO. Use BiPAP throughout the night, with settings of 12/6, and 40%. Labs, x-rays, medications are reviewed. The patient's overall prognosis remains guarded. We will continue to follow make recommendations along the way. Prognosis is guarded. Time with Patient: Less than 30
[2023-10-19] MEDS: DARBEPOETIN ALFA 60 MCG/0.3 ML SYRINGE SQ SCH (15:49)
[2023-10-19 16:25] LABS: Glucose,Whole Blood 247 mg/dL (70-110)
[2023-10-19] MEDS: INSULIN ASPART (NovoLOG) 100 UNIT/ML VIAL SQ SCH (17:20)
[2023-10-19 19:58] LABS: Glucose,Whole Blood 224 mg/dL (70-110)
--- NOTE | 2023-10-19 22:18 | P.PN ---
Subjective patient is a 87-year-old gentleman past medical history significant for COPD, hypertension was brought to the ER for shortness of breath. Patient had a wellness check done on him after neighbors were concerned for his safety. When EMS arrived at this point patient was found to be short of breath. Patient history of COPD and currently uses 3 L of oxygen. Patient stated that he was short of breath for the last few days. Patient also complaining of wheezing. There was no complaint of fever or chills. There is no complaint of nausea, or abdominal pain. Patient denies any recent falls. Patient was initially very resistant to the idea of coming to the hospital. EMS brought patient to [facility] Initial lab work done in the ER showed W6.2, hemoglobin 8.8, platelet count 141, sodium 148, potassium 8.1, BUN 67, creatinine 6.62, troponin 0.049, proBNP 61348 Influenza A not detected Influenza B not detected RSV not detected COVID-19 not detected EKG done in the ER showed heart rate of75 , no ST segment elevation or depression seen, no T-wave inversions seen. Chest x-ray done in the ER showed small bilateral pleural effusion, pulm vascular congestion, cardiomegaly Because of hyperkalemia and acute kidney injury, patient was admitted to ICU under internal medicine service 10/15. Patient seen and examined. Currently on 15 L of oxygen. Blood work done this morning showed WBC 9.6, hemoglobin 7.5, sodium 137, potassium 6, BUN 78, creatinine 6.14. States breathing is very bad. Denies any cough. Patient started on Lasix drip 10/16. Patient seen and examined. Patient continues to be very noncompliant, keeps saying that he wants to go home. Currently on 15 L of oxygen. Blood work done this morning showed WBC 11.2, hemoglobin 7.4 sodium 136, potassium 4.7, BUN 79, creatinine 5.77. 10/17. Patient seen and examined. Currently on BiPAP. Patient is lethargic. Family at the bedside, all questions answered. Labs done this morning showed sodium 133, potassium 5.1, BUN 94, creatinine 6.31. Nephrology had recommended to start patient on dialysis, patient family agreeable 10/19/23 Patient lying in bed, mildly tachypneic He is fully awake and oriented Patient refused to continue the encounter and refused to answer further questions Chart and medical records were reviewed Objective - Vital Signs Vital signs: Vital Signs Temp 97.7 F 10/19/23 11:32 Pulse 78 10/19/23 12:00 Resp 18 10/19/23 11:32 BP 158/59 10/19/23 11:32 Pulse Ox 99 10/19/23 11:50 FiO2 40 10/19/23 04:00 Intake & Output 10/18/23 10/19/23 10/19/23 18:59 06:59 18:59 Intake Total 1302.266 298.476 640 Output Total 2080 890 2700 Balance -777.734 -591.524 -2060 Weight 61.7 kg Intake: IV 450 240 40 Furosemide 100 mg In 210 Sodium Chloride 0.9% 90 ml @ 20 MG/HR 20 mls/hr IV .Q5H TIFFANIE Rx#:[id number] Sodium Chloride 0.9% 1, 240 240 40 000 ml @ 20 mls/hr IV . Q24H TIFFANIE Rx#:[id number] Intake, IV Titration 252.266 58.476 Amount Dexmedetomidine/0.9% NaCl 66.933 58.476 (Pmx) 400 mcg In Empty Bag 1 bag @ 0.2 MCG/KG/HR 3.055 mls/hr IV .Q24H TIFFANIE Rx#:[id number] Furosemide 100 mg In 185.333 Sodium Chloride 0.9% 90 ml @ 20 MG/HR 20 mls/hr IV .Q5H TIFFANIE Rx#:[id number] Hemodialysis 600 600 Output: Urine 680 890 100 Hemodialysis 1400 2600 Other: Voiding Method Indwelling Catheter Indwelling Catheter - Exam GENERAL: The patient is alert and oriented x3, not in any acute distress. Well developed, well nourished. HEENT: Pupils are round and equally reacting to light. EOMI. No scleral icterus. No conjunctival pallor. Normocephalic, atraumatic. No pharyngeal erythema. No thyromegaly. CARDIOVASCULAR: S1 and S2 present. No murmurs, rubs, or gallops. PULMONARY: Chest is clear to auscultation, no wheezing , no crackles. ABDOMEN: Soft, nontender, nondistended, normoactive bowel sounds. No palpable organomegaly. MUSCULOSKELETAL: No joint swelling or deformity. EXTREMITIES: No cyanosis, clubbing, or pedal edema. NEUROLOGICAL: Gross neurological examination did not reveal any focal deficits. SKIN: No rashes. no petechiae. - Labs CBC & Chem 7: 10/19/23 06:20 10/19/23 06:20 Labs: Abnormal Lab Results - Last 24 Hours (Table) 10/18/23 10/18/23 10/19/23 Range/Units 20:02 23:35 05:53 RBC (4.30-5.90) m/uL Hgb (13.0-17.5) gm/dL Hct (39.0-53.0) % MCV (80.0-100.0) fL MCHC (31.0-37.0) g/dL Plt Count (150-450) k/uL Sodium (137-145) mmol/L BUN (9-20) mg/dL Creatinine (0.66-1.25) mg/dL Glucose (74-99) mg/dL POC Glucose (mg/dL) 134 H 196 H 158 H (70-110) mg/dL Calcium (8.4-10.2) mg/dL 10/19/23 10/19/23 10/19/23 Range/Units 06:20 06:20 11:10 RBC 2.28 L (4.30-5.90) m/uL Hgb 7.1 L (13.0-17.5) gm/dL Hct 23.6 L (39.0-53.0) % MCV 103.6 H (80.0-100.0) fL MCHC 30.0 L (31.0-37.0) g/dL Plt Count 122 L (150-450) k/uL Sodium 133 L (137-145) mmol/L BUN 72 H (9-20) mg/dL Creatinine 4.19 H (0.66-1.25) mg/dL Glucose 146 H (74-99) mg/dL POC Glucose (mg/dL) 332 H (70-110) mg/dL Calcium 7.8 L (8.4-10.2) mg/dL Assessment and Plan Assessment: Acute on chronic hypoxemic respiratory failure acute COPD exacerbation. Acute kidney injury Acute CHF Acute severe non-anion gap metabolic acidosis, secondary to above Severe hyperkalemia Elevated troponins, in the setting of acute renal failure Anemia Current ongoing tobacco dependence History of kidney stones Plan: Patient remains to be monitored in the ICU Continue telemetry monitoring BiPAP as needed Continue bronchopulmonary hygiene Strict I's and O's Daily weights Continue Lasix drip Continue Precedex drip Continue breathing treatments Nephrology following, they have discussed with patient family regarding renal replacement therapy, family agreeable, patient to proceed with dialysis ICU following Cardiology following
[2023-10-19] MEDS: hydrALAZINE HCL 20 MG/ML 1 ML VIAL IVP PRN (23:29)
[2023-10-20] MEDS: ACETAMINOPHEN TAB 325 MG TAB PO PRN (03:33)
[2023-10-20 06:18] LABS: Basophils % (A) 0 %; Eosinophils % (A) 0 %; HCT 25.7 % (39.0-53.0); HGB 7.8 gm/dL (13.0-17.5); Hypochromasia Slight; Lymphocytes # (A) 0.2 k/uL (1.0-4.8); Lymphocytes % (A) 3 %; MCH 31.3 pg (25.0-35.0); MCHC 30.3 g/dL (31.0-37.0); MCV 103.2 fL (80.0-100.0); Macrocytosis Slight; Mean Platelet Volume 9.5; Monocytes # (A) 0.4 k/uL (0-1.0); Monocytes % (A) 5 %; Neutrophils # (A) 7.9 k/uL (1.3-7.7); Neutrophils % (A) 91 %; Platelet Count 148 k/uL (150-450); RBC 2.49 m/uL (4.30-5.90); RDW 14.3 % (11.5-15.5); WBC 8.6 k/uL (3.8-10.6)
[2023-10-20 06:30] LABS: African American GFR (CKD) 17 (>60 ml/min/1.73 sqM); Anion Gap 8 mmol/L; Blood Urea Nitrogen 62 mg/dL (9-20); Calcium 7.7 mg/dL (8.4-10.2); Carbon Dioxide 26 mmol/L (22-30); Chloride 100 mmol/L (98-107); Glucose 168 mg/dL (74-99); Non-African American GFR(CKD) 15 (>60 ml/min/1.73 sqM); Sodium 134 mmol/L (137-145)
[2023-10-20 06:36] LABS: Glucose,Whole Blood 195 mg/dL (70-110)
--- NOTE | 2023-10-20 07:44 | P.PN ---
Subjective patient is a 87-year-old gentleman past medical history significant for COPD, hypertension was brought to the ER for shortness of breath. Patient had a wellness check done on him after neighbors were concerned for his safety. When EMS arrived at this point patient was found to be short of breath. Patient history of COPD and currently uses 3 L of oxygen. Patient stated that he was short of breath for the last few days. Patient also complaining of wheezing. There was no complaint of fever or chills. There is no complaint of nausea, or abdominal pain. Patient denies any recent falls. Patient was initially very resistant to the idea of coming to the hospital. EMS brought patient to [facility] Initial lab work done in the ER showed W6.2, hemoglobin 8.8, platelet count 141, sodium 148, potassium 8.1, BUN 67, creatinine 6.62, troponin 0.049, proBNP 68893 Influenza A not detected Influenza B not detected RSV not detected COVID-19 not detected EKG done in the ER showed heart rate of75 , no ST segment elevation or depression seen, no T-wave inversions seen. Chest x-ray done in the ER showed small bilateral pleural effusion, pulm vascular congestion, cardiomegaly Because of hyperkalemia and acute kidney injury, patient was admitted to ICU under internal medicine service 10/15. Patient seen and examined. Currently on 15 L of oxygen. Blood work done this morning showed WBC 9.6, hemoglobin 7.5, sodium 137, potassium 6, BUN 78, creatinine 6.14. States breathing is very bad. Denies any cough. Patient started on Lasix drip 10/16. Patient seen and examined. Patient continues to be very noncompliant, keeps saying that he wants to go home. Currently on 15 L of oxygen. Blood work done this morning showed WBC 11.2, hemoglobin 7.4 sodium 136, potassium 4.7, BUN 79, creatinine 5.77. 10/17. Patient seen and examined. Currently on BiPAP. Patient is lethargic. Family at the bedside, all questions answered. Labs done this morning showed sodium 133, potassium 5.1, BUN 94, creatinine 6.31. Nephrology had recommended to start patient on dialysis, patient family agreeable 10/19/23 Patient lying in bed, mildly tachypneic He is fully awake and oriented Patient refused to continue the encounter and refused to answer further questions Chart and medical records were reviewed 10/20/2023 Patient awake alert at baseline Still have limited air entry on both lungs Abdomen soft No leg swelling He remains on IV Lasix 60 mg 3 times per day and IV Solu-Medrol 40 mg His oxygen requirement coming down from 15 L down to 7 L Objective - Vital Signs Vital signs: Vital Signs Temp 98.2 F 10/20/23 04:00 Pulse 78 10/20/23 07:00 Resp 18 10/20/23 07:00 BP 180/88 10/20/23 07:00 Pulse Ox 95 10/20/23 07:00 FiO2 40 10/19/23 04:00 Intake & Output 10/19/23 10/20/23 10/20/23 18:59 06:59 18:59 Intake Total 740 1030 Output Total 3480 1260 Balance -2740 -230 Weight 59.3 kg Intake: IV 140 130 Sodium Chloride 0.9% 1, 140 130 000 ml @ 20 mls/hr IV . Q24H TIFFANIE Rx#:[id number] Oral 900 Hemodialysis 600 Output: Urine 880 1260 Hemodialysis 2600 Other: Voiding Method Indwelling Catheter Indwelling Catheter # Bowel Movements 1 - Exam GENERAL: The patient is alert and oriented x3, not in any acute distress. Well developed, well nourished. HEENT: Pupils are round and equally reacting to light. EOMI. No scleral icterus. No conjunctival pallor. Normocephalic, atraumatic. No pharyngeal erythema. No thyromegaly. CARDIOVASCULAR: S1 and S2 present. No murmurs, rubs, or gallops. PULMONARY: Chest is clear to auscultation, no wheezing , no crackles. ABDOMEN: Soft, nontender, nondistended, normoactive bowel sounds. No palpable organomegaly. MUSCULOSKELETAL: No joint swelling or deformity. EXTREMITIES: No cyanosis, clubbing, or pedal edema. NEUROLOGICAL: Gross neurological examination did not reveal any focal deficits. SKIN: No rashes. no petechiae. - Labs CBC & Chem 7: 10/20/23 05:47 10/20/23 05:47 Labs: Abnormal Lab Results - Last 24 Hours (Table) 10/19/23 10/19/23 10/19/23 Range/Units 11:10 16:23 19:56 RBC (4.30-5.90) m/uL Hgb (13.0-17.5) gm/dL Hct (39.0-53.0) % MCV (80.0-100.0) fL MCHC (31.0-37.0) g/dL Plt Count (150-450) k/uL Neutrophils # (1.3-7.7) k/uL Lymphocytes # (1.0-4.8) k/uL Sodium (137-145) mmol/L BUN (9-20) mg/dL Creatinine (0.66-1.25) mg/dL Glucose (74-99) mg/dL POC Glucose (mg/dL) 332 H 247 H 224 H (70-110) mg/dL Calcium (8.4-10.2) mg/dL 10/20/23 10/20/23 10/20/23 Range/Units 05:47 05:47 06:34 RBC 2.49 L (4.30-5.90) m/uL Hgb 7.8 L (13.0-17.5) gm/dL Hct 25.7 L (39.0-53.0) % MCV 103.2 H (80.0-100.0) fL MCHC 30.3 L (31.0-37.0) g/dL Plt Count 148 L (150-450) k/uL Neutrophils # 7.9 H (1.3-7.7) k/uL Lymphocytes # 0.2 L (1.0-4.8) k/uL Sodium 134 L (137-145) mmol/L BUN 62 H (9-20) mg/dL Creatinine 3.52 H (0.66-1.25) mg/dL Glucose 168 H (74-99) mg/dL POC Glucose (mg/dL) 195 H (70-110) mg/dL Calcium 7.7 L (8.4-10.2) mg/dL Assessment and Plan Assessment: Acute on chronic hypoxemic respiratory failure acute COPD exacerbation. Acute kidney injury Acute on chronic systolic CHF, echocardiogram showing ejection fraction of 40 to 45% Acute severe non-anion gap metabolic acidosis, secondary to above Severe hyperkalemia Elevated troponins, in the setting of acute renal failure Anemia Current ongoing tobacco dependence History of kidney stones Plan: Patient remains to be monitored in the ICU Continue with IV Lasix 60 mg Continue with IV Solu-Medrol 40 mg Continue with bronchodilator Pulmonary and nephrology consults are following closely Continue with oxygen Labs and medication were reviewed.. Continue same treatment. Continue with symptomatic treatment. Resume home medication. Monitor labs and vitals. DVT and GI prophylaxis. Further recommendations as per clinical course of the patient DVT prophylaxis: Mechanical GI Prophylaxis: px Prognosis is guarded
--- NOTE | 2023-10-20 08:58 | XR ---
EXAMINATION TYPE: XR chest 1V portable DATE OF EXAM: 10/20/2023 5:27 AM CLINICAL INDICATION:Male, 87 years old with history of bipap dependent respiratory failure; [facility] COMPARISON: Chest radiographs from TECHNIQUE: XR chest 1V portable Frontal view of the chest. FINDINGS: Lungs/Pleura: Prominent interstitial lung markings are seen scattered throughout the lungs. No eviden ce of focal consolidation, pneumothorax or pleural effusion. Pulmonary vascularity: increased pulmonary vascular congestion. Heart/mediastinum: Cardiomediastinal silhouette is enlarged and stable. Musculoskeletal: No acute osseous pathology. IMPRESSION: Increased pulmonary vascular congestion on today's exam correlate for worsening congestive heart fail ure..
--- NOTE | 2023-10-20 10:35 | P.PN ---
Subjective Progress Note Date: 10/20/23 Principal diagnosis: Acute kidney injury, hyperkalemia, COPD, CHF. Patient is an 87-year-old male with past medical history significant for COPD, chronic hypoxemic respiratory failure, hypertension, and kidney stones. He is quite upset to be in the hospital at this time, and he wants to go home. He reportedly lives by himself, and a neighbor had called for a wellbeing check yesterday evening. When EMS arrived, he was found to be hypoxic with an SpO2 of in the low 80s on his baseline 3 L/min nasal cannula. EMS then brought the patient to the emergency department. Patient was found to be in acute renal failure and severely hyperkalemic. BMP: Sodium 140, potassium 8.1, chloride 117, serum bicarb 12, BUN 67, creatinine 6.62, glucose 109. Lactic acid 1.1. Magnesium 2.5. Troponin 0.049. NT proBNP 36,500. CBC: WBC count 6.2, hemoglobin 8.8, hematocrit 30.6, platelets 141. Chest x-ray demonstrates cardiomegaly with pulmonary vascular congestion, small bilateral pleural effusions, and interstitial edema. Since his initial ER presentation, his oxygen demands increased and currently on 8 L/min high flow nasal cannula. He is alert and fully oriented, and currently refusing treatment. He is actually telling me that he is going to call a cab and leave this facility. He has not received any correction for his critically elevated potassium yet. ECG showing normal sinus rhythm with first-degree AV block and hyperacute T waves. I have repeatedly explained how critical his situation is, that if he were to leave at this time, he would likely had a cardiac arrest. He called his son, and I did speak to his son on the telephone about his father's critical condition. He is going to come up to the hospital and see his father. His son is encouraging him to stay in the hospital over the phone. After this, the patient has been more receptive to this interview and my questions. He states that he had kidney stones approximately 3 years ago. Denies NSAID use. Denies any trouble urinating such as dysuria, urinary frequency, hematuria, flank pain. Denies having an enlarged prostate. [id number]-[id number] bladder scan reveals a minimal amount of urine, 140 cc. Patient is refusing urinary catheter. Nephrology has been consulted for management of his renal failure and hyperkalemia. As far as the patient's respiratory status. He states that has been getting worse over the last couple days, which he attributes to the heat outside. Denies any infectious-like symptoms such as fever, rhinorrhea, sore throat, cough, sputum production, hemoptysis. Denies any nausea or vomiting, diarrhea, or abdominal pain. He has been traveling by car [id number] to [place] over the last several weeks. Denies chest pain. Denies lower extremity swelling. He is audibly wheezing on examination. Does use inhalers and nebulizer at home, but is unsure of medications or doses. Reportedly a current smoker, approximately 1/2 to 1 ppd. Overall prognosis is guarded. Patient was reevaluated today on 10/16/2023, patient remains in the ICU, no significant improvement noted in his renal function, patient is making urine and responding to Lasix, however his chest x-ray is worsening, and I recommended that we start the patient on Lasix drip today. Nephrology is considering renal replacement therapy on this patient, however I believe the patient is going to be extremely reluctant and he will likely refuse it because I touch bases with him earlier regarding this, and the patient wants to be discharged home. Again it is a very difficult situation, patient is not very compliant, and he is resisting all kinds of treatment. Ultrasound of the kidneys showed no evidence of hydronephrosis. His metabolic acidosis did improve with bicarb drip, and this has been placed on hold for today. His hyperkalemia did improve with treatment. Blood pressure is also under control. Again his chest x-ray is showing worsening of his pulmonary edema. Labs today showed relatively normal WBC count, hemoglobin is 7.5. Platelets are 153. Potassium this morning is 5.0. It was 6.0 earlier. Patient remains on 15 L high flow nasal cannula and O2 saturation 97%. Hemodynamically patient is doing well blood pressure is 123/55, not requiring any pressors. Patient was reevaluated today on 10/17/2023, patient remains in the ICU, remains on Lasix drip, still requiring 15 L high flow nasal cannula, and had to be placed at night on BiPAP 04/01/60%, his Lasix drip is 10 mg an hour. Creatinine is a bit down to 5.77 today, patient was seen by nephrology, and seriously considering renal replacement therapy. In 24 hours, patient had about 1 L negative fluid balance. WBC count is 11.2 hemoglobin 7.4 electrolytes are normal BUN is 79 creatinine 5.77 chest x-ray continues to show pulmonary edema, slightly better compared to the chest x-ray he had on admission Was evaluated today on 10/18/2023, remains in the ICU, last night the patient became extremely agitated, had to be placed on Precedex which is now 0.4 mcg/kg/h. Remains on Lasix at 10 mg/h, putting out urine in the range of 60 to 80 cc/h. Chest x-ray is showing some improvement in his pulmonary edema. However considering the fact that his urine output is not as significant as it should be, I am recommending that we increase the Lasix to 20 mg/h drip. In the meantime patient had to be placed on BiPAP last night 12//40%. Nephrology was considering renal replacement therapy, and that is still being considered. Patient's clinical status remains marginal at best, I have a feeling that the patient may eventually require intubation mechanical ventilation, however we will try to manage for now conservatively unless condition gets any worse. WBC count today is 7 hemoglobin 7.4 potassium is 5.1 BUN is 94 creatinine is up again to 6.31 echocardiogram on this patient showed ejection fraction of 40 to 45% Progress note dated October 19, 2023. The patient is seen today in room 259. He is actually undergoing hemodialysis. Hemodialysis started yesterday. 800 cc was removed yesterday, and 2 L will be removed today, should the blood pressure remained stable. The patient was admitted to the hospital on October 14, with a diagnosis of acute kidney injury, and hyperkalemia, as well as COPD, and CHF. The patient was on 15 L high flow nasal O2, which has been turned down to 13 L. He is getting saline at KVO. He did use BiPAP throughout the night, with settings of 12/6, and 40%. Current laboratory data includes a white count 6.6, hemoglobin 7.1, hematocrit 23.6, and platelet count of 122,000. Sodium 133, potassium 4.6, chloride 99, CO2 28, BUN 72, creatinine 4.19. Glucose is 332. Calcium is 7.8. Chest x-ray shows some interstitial changes, consistent with interstitial edema and pulmonary vascular congestion. Progress note dated October 18, 2023. The patient is seen today in room 259. Clinically, the patient appears to be relatively stable. He is anxious to be discharged. He is on 6 L nasal cannula. He is getting saline at 10 cc an hour. He had hemodialysis yesterday, 2 L of fluid was removed. Not sure about hemodialysis today. The patient had an uneventful night according to the nurses. Current labs include a white count 8.6, hemoglobin 7.8, hematocrit 25.7, and platelet count 148,000. Sodium 134, potassium 4, chlorides 100, CO2 26, BUN 62, creatinine 3.52. Glucose was 195. Calcium 7.7. Chest x-ray is consistent with increasing pulmonary vascular congestion. Objective - Vital Signs Vital signs: Vital Signs Temp 98.2 F 10/20/23 04:00 Pulse 89 10/20/23 08:44 Resp 18 10/20/23 07:00 BP 180/88 10/20/23 07:00 Pulse Ox 97 10/20/23 08:24 FiO2 40 10/19/23 04:00 Intake & Output 10/19/23 10/20/23 10/20/23 18:59 06:59 18:59 Intake Total 740 1030 Output Total 3480 1260 Balance -2740 -230 Weight 59.3 kg Intake: IV 140 130 Sodium Chloride 0.9% 1, 140 130 000 ml @ 20 mls/hr IV . Q24H [facility] Rx#:[id number] Oral 900 Hemodialysis 600 Output: Urine 880 1260 Hemodialysis 2600 Other: Voiding Method Indwelling Catheter Indwelling Catheter # Bowel Movements 1 - Exam No acute distress, oriented 3. Frail appearing, currently on 6 L by nasal can nula. HEENT examination is grossly unremarkable. Mucous membranes are moist. No oral lesions. Neck supple. Full range of motion. No adenopathy thyromegaly or neck vein distention. Cardiovascular examination reveals regular rhythm rate. S1-S2 normal. No S3 or S4. No discernible murmur noted. Heart rate 89 bpm. Heart sounds are distant. Lungs reveal scattered crackles. Breath sounds equal. No wheezes or rhonchi. Breath sounds are equal bilaterally. Saturations are 97 %. Abdomen soft bowel sounds are heard. No masses or tenderness. Extremities are intact. No cyanosis or clubbing. Trace lower extremity edema. Skin is without rash or lesion. Neurologic examination is brief but nonfocal. - Labs CBC & Chem 7: 10/20/23 05:47 10/20/23 05:47 Labs: Abnormal Lab Results - Last 24 Hours (Table) 10/19/23 10/19/23 10/19/23 Range/Units 11:10 16:23 19:56 RBC (4.30-5.90) m/uL Hgb (13.0-17.5) gm/dL Hct (39.0-53.0) % MCV (80.0-100.0) fL MCHC (31.0-37.0) g/dL Plt Count (150-450) k/uL Neutrophils # (1.3-7.7) k/uL Lymphocytes # (1.0-4.8) k/uL Sodium (137-145) mmol/L BUN (9-20) mg/dL Creatinine (0.66-1.25) mg/dL Glucose (74-99) mg/dL POC Glucose (mg/dL) 332 H 247 H 224 H (70-110) mg/dL Calcium (8.4-10.2) mg/dL 10/20/23 10/20/23 10/20/23 Range/Units 05:47 05:47 06:34 RBC 2.49 L (4.30-5.90) m/uL Hgb 7.8 L (13.0-17.5) gm/dL Hct 25.7 L (39.0-53.0) % MCV 103.2 H (80.0-100.0) fL MCHC 30.3 L (31.0-37.0) g/dL Plt Count 148 L (150-450) k/uL Neutrophils # 7.9 H (1.3-7.7) k/uL Lymphocytes # 0.2 L (1.0-4.8) k/uL Sodium 134 L (137-145) mmol/L BUN 62 H (9-20) mg/dL Creatinine 3.52 H (0.66-1.25) mg/dL Glucose 168 H (74-99) mg/dL POC Glucose (mg/dL) 195 H (70-110) mg/dL Calcium 7.7 L (8.4-10.2) mg/dL Assessment and Plan Assessment: Acute on chronic hypoxemic respiratory failure secondary to fluid overload, and acute COPD exacerbation. Acute systolic CHF. History of chronic obstructive pulmonary disease. Chronic hypoxemic respiratory failure, on home O2 between 2 to 3 L/min. Current and ongoing tobacco dependence. Acute kidney injury/failure. Acute severe non-anion gap metabolic acidosis. Severe hyperkalemia. Anemia of chronic disease. History of kidney stones. Plan: Plan dated October 19, 2023. The patient is seen today in room 259. The patient had hemodialysis yesterday, and will have hemodialysis today. He is currently on high flow nasal cannula at 15 L, turned down to 13 L. He is getting saline at KVO. Use BiPAP throughout the night, with settings of 12/6, and 40%. Labs, x-rays, medications are reviewed. The patient's overall prognosis remains guarded. We will continue to follow make recommendations along the way. Prognosis is guarded. Plan dated October 20, 2023. The patient is seen today in the intensive care unit, room 259. The patient is currently on 6 L of oxygen by nasal cannula. He is getting saline at 10 cc an hour. According to the nurses, the patient had a pretty uneventful night. He did have hemodialysis yesterday, October 18, 2 L of fluid was removed. The chest x-ray today shows increasing pulmonary vascular congestion. Labs, x-rays, and medications are reviewed. The patient's overall prognosis remains guarded. We will continue to follow the patient, and make recommendations along the way. The patient did use his BiPAP device at nighttime. Time with Patient: Less than 30
--- NOTE | 2023-10-20 11:34 | P.PN ---
Subjective patient is seen for follow-up for acute kidney injury. Started renal replacement therapy on 10/18/2023 for worsening renal function, volume overload and worsening mentation. Patient had 2000 mL of UF yesterday. He is currently seen on hemodialysis. Mentation is much improved. Goal UF about 2 L today. urine output at 70 -100 ML per hour. Objective - Vital Signs Vital signs: Vital Signs Temp 97.7 F 10/20/23 08:00 Pulse 70 10/20/23 11:00 Resp 17 10/20/23 11:00 BP 170/87 10/20/23 11:00 Pulse Ox 96 10/20/23 11:00 FiO2 40 10/19/23 04:00 Intake & Output 10/19/23 10/20/23 10/20/23 18:59 06:59 18:59 Intake Total 740 1030 20 Output Total 3480 1260 150 Balance -2740 -230 -130 Weight 59.3 kg Intake: IV 140 130 20 Sodium Chloride 0.9% 1, 140 130 20 000 ml @ 20 mls/hr IV . Q24H [facility] Rx#:[id number] Oral 900 Hemodialysis 600 Output: Urine 880 1260 150 Hemodialysis 2600 Other: Voiding Method Indwelling Catheter Indwelling Catheter Indwelling Catheter # Bowel Movements 1 - Exam patient is awake, comfortable, no acute distress. mentation has improved. Examination of the heart S1 and S2 Examination of the lungs decreased breath sounds at the bases Abdomen is soft nontender Examination of lower extremity shows no edema bilaterally [employer] exam grossly intact. - Labs CBC & Chem 7: 10/20/23 05:47 10/20/23 05:47 Labs: Abnormal Lab Results - Last 24 Hours (Table) 10/19/23 10/19/23 10/20/23 Range/Units 16:23 19:56 05:47 RBC 2.49 L (4.30-5.90) m/uL Hgb 7.8 L (13.0-17.5) gm/dL Hct 25.7 L (39.0-53.0) % MCV 103.2 H (80.0-100.0) fL MCHC 30.3 L (31.0-37.0) g/dL Plt Count 148 L (150-450) k/uL Neutrophils # 7.9 H (1.3-7.7) k/uL Lymphocytes # 0.2 L (1.0-4.8) k/uL Sodium (137-145) mmol/L BUN (9-20) mg/dL Creatinine (0.66-1.25) mg/dL Glucose (74-99) mg/dL POC Glucose (mg/dL) 247 H 224 H (70-110) mg/dL Calcium (8.4-10.2) mg/dL 10/20/23 10/20/23 Range/Units 05:47 06:34 RBC (4.30-5.90) m/uL Hgb (13.0-17.5) gm/dL Hct (39.0-53.0) % MCV (80.0-100.0) fL MCHC (31.0-37.0) g/dL Plt Count (150-450) k/uL Neutrophils # (1.3-7.7) k/uL Lymphocytes # (1.0-4.8) k/uL Sodium 134 L (137-145) mmol/L BUN 62 H (9-20) mg/dL Creatinine 3.52 H (0.66-1.25) mg/dL Glucose 168 H (74-99) mg/dL POC Glucose (mg/dL) 195 H (70-110) mg/dL Calcium 7.7 L (8.4-10.2) mg/dL Assessment and Plan Assessment: 1. Acute kidney injury secondary to ATN. Creatinine in November 2014 was 1.9. Started hemodialysis on 10/18/2023/renal function volume overload and altered mentation. No hydronephrosis noted on kidney ultrasound. Left kidney atrophic. 2. Metabolic acidosis secondary to acute kidney injury and IV fluids. Improved with bicarb drip. 3. Hyperkalemia secondary to acute kidney injury, acidosis and lisinopril. Improved with medical management. 4. Hypocalcemia secondary to acute kidney injury. Replaced. Better. 5. Benign hypertension. Controlled. 6. Acute hypoxic respiratory failure. improved with improvement in volume status. 7. Volume overload. 8. Acute on chronic systolic CHF with ejection fraction of 40 to 45% with mild to moderate tricuspid regurgitation and moderate mitral regurgitation. 9. Anemia. no significant iron deficiency. Iron saturation borderline. Status post 1 dose of Ferrlecit Plan: hemodialysis today with UF of about 2 L. repeat hemodialysis in a.m. mostly for UF Continue with current dose of IV Lasix. continue AranespExline encourage increased oral intake.
[2023-10-20 11:37] LABS: Glucose,Whole Blood 128 mg/dL (70-110)
--- NOTE | 2023-10-20 11:45 | PN ---
PROGRESS NOTE 87-year-old gentleman, history of COPD, hypoxic respiratory failure, cardiomyopathy, chronic renal insufficiency, who is admitted to hospital with acute exacerbation of chronic systolic heart failure, respiratory failure, and worsening renal functions and renal failure. He was treated with IV Lasix without significant improvement and has since been started on dialysis and so far had been dialyzed 3 times. The patient is anxious to go home. Denies any chest pain or difficulty in breathing. CURRENT MEDICATIONS: Include, 1. Norvasc 10 mg daily. 2. Aspirin. 3. Lipitor 40 mg daily. 4. Lasix 60 mg IV q.8. 5. Insulin. 6. Lopressor 12.5 b.i.d. PHYSICAL EXAMINATION: GENERAL: He is comfortable at rest. VITAL SIGNS: Blood pressures are poorly controlled. CHEST: Exam reveals diminished air entry at the bases with occasional rhonchi. HEART: Exam reveals first and second heart sounds, and a systolic murmur at the apex. ABDOMEN: Soft. EXTREMITIES: Bilateral 1+ pitting edema. LABORATORY DATA: Show a hemoglobin of 7.8, platelet count is 148. BUN is 62, creatinine is 3.5. ASSESSMENT: 1. Acute on chronic systolic heart failure. 2. Acute on chronic renal failure. 3. Severe uncontrolled hypertension. PLAN: I will add amlodipine 10 mg daily and hydralazine, and increase the doses as needed for better blood pressure control. MMODL / IJN: [id number] /
[2023-10-20] MEDS: hydrALAZINE HCL 25 MG TAB PO SCH (12:00)
[2023-10-20] MEDS: amLODIPine 10 MG TAB PO SCH (12:00)
[2023-10-20 17:15] LABS: Glucose,Whole Blood 292 mg/dL (70-110)
[2023-10-20 21:02] LABS: Glucose,Whole Blood 85 mg/dL (70-110)
[2023-10-20] MEDS: MELATONIN 5 MG TABLET PO SCH (21:16)
[2023-10-21 00:24] LABS: Glucose,Whole Blood 182 mg/dL (70-110)
[2023-10-21 06:51] LABS: Basophils % (A) 0 %; Eosinophils % (A) 0 %; HCT 27.2 % (39.0-53.0); HGB 8.3 gm/dL (13.0-17.5); Hypochromasia Moderate; Lymphocytes # (A) 0.2 k/uL (1.0-4.8); Lymphocytes % (A) 3 %; MCH 31.5 pg (25.0-35.0); MCHC 30.3 g/dL (31.0-37.0); Macrocytosis Moderate; Mean Platelet Volume 9.2; Monocytes # (A) 0.4 k/uL (0-1.0); Monocytes % (A) 4 %; Neutrophils # (A) 7.6 k/uL (1.3-7.7); Neutrophils % (A) 92 %; Platelet Count 160 k/uL (150-450); RBC 2.62 m/uL (4.30-5.90); RDW 14.5 % (11.5-15.5); WBC 8.3 k/uL (3.8-10.6)
[2023-10-21 06:51] LABS: Glucose,Whole Blood 164 mg/dL (70-110)
[2023-10-21 07:14] LABS: African American GFR (CKD) 19 (>60 ml/min/1.73 sqM); Anion Gap 9 mmol/L; Blood Urea Nitrogen 53 mg/dL (9-20); Carbon Dioxide 23 mmol/L (22-30); Chloride 101 mmol/L (98-107); Glucose 165 mg/dL (74-99); Non-African American GFR(CKD) 17 (>60 ml/min/1.73 sqM); Potassium 3.9 mmol/L (3.5-5.1); Sodium 133 mmol/L (137-145)
--- NOTE | 2023-10-21 08:27 | XR ---
EXAMINATION TYPE: XR chest 1V portable DATE OF EXAM: 10/21/2023 5:06 AM CLINICAL INDICATION:Male, 87 years old with history of bipap dependent respiratory failure; COMPARISON: Chest radiographs from 10/20/2023. TECHNIQUE: XR chest 1V portable Frontal view of the chest. FINDINGS: Lungs/Pleura: Stable appearance of the lungs. There is no evidence of pleural effusion, focal consoli dation, or pneumothorax. Pulmonary vascularity: Pulmonary vascular congestion. Heart/mediastinum: Cardiomediastinal silhouette is enlarged and stable. Musculoskeletal: No acute osseous pathology. IMPRESSION: Similar aeration of the right lower lung.
--- NOTE | 2023-10-21 09:04 | P.PN ---
Subjective patient is a 87-year-old gentleman past medical history significant for COPD, hypertension was brought to the ER for shortness of breath. Patient had a wellness check done on him after neighbors were concerned for his safety. When EMS arrived at this point patient was found to be short of breath. Patient history of COPD and currently uses 3 L of oxygen. Patient stated that he was short of breath for the last few days. Patient also complaining of wheezing. There was no complaint of fever or chills. There is no complaint of nausea, or abdominal pain. Patient denies any recent falls. Patient was initially very resistant to the idea of coming to the hospital. EMS brought patient to [facility] Initial lab work done in the ER showed W6.2, hemoglobin 8.8, platelet count 141, sodium 148, potassium 8.1, BUN 67, creatinine 6.62, troponin 0.049, proBNP 29966 Influenza A not detected Influenza B not detected RSV not detected COVID-19 not detected EKG done in the ER showed heart rate of75 , no ST segment elevation or depression seen, no T-wave inversions seen. Chest x-ray done in the ER showed small bilateral pleural effusion, pulm vascular congestion, cardiomegaly Because of hyperkalemia and acute kidney injury, patient was admitted to ICU under internal medicine service 10/15. Patient seen and examined. Currently on 15 L of oxygen. Blood work done this morning showed WBC 9.6, hemoglobin 7.5, sodium 137, potassium 6, BUN 78, creatinine 6.14. States breathing is very bad. Denies any cough. Patient started on Lasix drip 10/16. Patient seen and examined. Patient continues to be very noncompliant, keeps saying that he wants to go home. Currently on 15 L of oxygen. Blood work done this morning showed WBC 11.2, hemoglobin 7.4 sodium 136, potassium 4.7, BUN 79, creatinine 5.77. 10/17. Patient seen and examined. Currently on BiPAP. Patient is lethargic. Family at the bedside, all questions answered. Labs done this morning showed sodium 133, potassium 5.1, BUN 94, creatinine 6.31. Nephrology had recommended to start patient on dialysis, patient family agreeable 10/19/23 Patient lying in bed, mildly tachypneic He is fully awake and oriented Patient refused to continue the encounter and refused to answer further questions Chart and medical records were reviewed 10/20/2023 Patient awake alert at baseline Still have limited air entry on both lungs Abdomen soft No leg swelling He remains on IV Lasix 60 mg 3 times per day and IV Solu-Medrol 40 mg His oxygen requirement coming down from 15 L down to 7 L 10/21/2023 Patient looks mildly confused at baseline. He follows commands. He is less tachypneic and his oxygen requirement down to 4 L/day He remains on IV Lasix 60 mg 3 times a day He has acute kidney injury on admission and is getting hemodialysis per nephrology team No chest pain No other new complaint Objective - Vital Signs Vital signs: Vital Signs Temp 97.8 F 10/21/23 08:00 Pulse 79 10/21/23 08:20 Resp 16 10/21/23 08:00 BP 154/65 10/21/23 08:00 Pulse Ox 96 10/21/23 08:10 FiO2 40 10/19/23 04:00 Intake & Output 10/20/23 10/21/23 10/21/23 18:59 06:59 18:59 Intake Total 920 Output Total 3550 655 Balance -2630 -655 Weight 59.5 kg Intake: IV 20 Sodium Chloride 0.9% 1, 20 000 ml @ 20 mls/hr IV . Q24H [facility] Rx#:[id number] Hemodialysis 900 Output: Urine 650 655 Hemodialysis 2900 Other: Voiding Method Indwelling Catheter Indwelling Catheter - Exam GENERAL: The patient is alert and oriented x3, not in any acute distress. Well developed, well nourished. HEENT: Pupils are round and equally reacting to light. EOMI. No scleral icterus. No conjunctival pallor. Normocephalic, atraumatic. No pharyngeal erythema. No thyromegaly. CARDIOVASCULAR: S1 and S2 present. No murmurs, rubs, or gallops. PULMONARY: Chest is clear to auscultation, no wheezing , no crackles. ABDOMEN: Soft, nontender, nondistended, normoactive bowel sounds. No palpable organomegaly. MUSCULOSKELETAL: No joint swelling or deformity. EXTREMITIES: No cyanosis, clubbing, or pedal edema. NEUROLOGICAL: Gross neurological examination did not reveal any focal deficits. SKIN: No rashes. no petechiae. - Labs CBC & Chem 7: 10/21/23 05:45 10/21/23 05:45 Labs: Abnormal Lab Results - Last 24 Hours (Table) 10/20/23 10/20/23 10/21/23 Range/Units 11:34 17:13 00:22 RBC (4.30-5.90) m/uL Hgb (13.0-17.5) gm/dL Hct (39.0-53.0) % MCV (80.0-100.0) fL MCHC (31.0-37.0) g/dL Lymphocytes # (1.0-4.8) k/uL Sodium (137-145) mmol/L BUN (9-20) mg/dL Creatinine (0.66-1.25) mg/dL Glucose (74-99) mg/dL POC Glucose (mg/dL) 128 H 292 H 182 H (70-110) mg/dL Calcium (8.4-10.2) mg/dL 10/21/23 10/21/23 10/21/23 Range/Units 05:45 05:45 06:49 RBC 2.62 L (4.30-5.90) m/uL Hgb 8.3 L (13.0-17.5) gm/dL Hct 27.2 L (39.0-53.0) % MCV 104.0 H (80.0-100.0) fL MCHC 30.3 L (31.0-37.0) g/dL Lymphocytes # 0.2 L (1.0-4.8) k/uL Sodium 133 L (137-145) mmol/L BUN 53 H (9-20) mg/dL Creatinine 3.17 H (0.66-1.25) mg/dL Glucose 165 H (74-99) mg/dL POC Glucose (mg/dL) 164 H (70-110) mg/dL Calcium 8.0 L (8.4-10.2) mg/dL Assessment and Plan Assessment: Acute on chronic hypoxemic respiratory failure acute COPD exacerbation. Acute kidney injury Acute on chronic systolic CHF, echocardiogram showing ejection fraction of 40 to 45% Acute severe non-anion gap metabolic acidosis, secondary to above Severe hyperkalemia Elevated troponins, in the setting of acute renal failure Anemia Current ongoing tobacco dependence History of kidney stones Plan: Patient remains to be monitored in the ICU Continue with IV Lasix 60 mg Continue with IV Solu-Medrol 40 mg Continue with bronchodilator Pulmonary and nephrology consults are following closely Continue with oxygen Labs and medication were reviewed.. Continue same treatment. Continue with symptomatic treatment. Resume home medication. Monitor labs and vitals. DVT and GI prophylaxis. Further recommendations as per clinical course of the patient DVT prophylaxis: Mechanical GI Prophylaxis: px Prognosis is guarded
--- NOTE | 2023-10-21 11:18 | P.PN ---
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 He has a past medical history of h ypertension, COPD, tobacco use and dependence. We have been asked to evaluate the patient for CHF. Patient states he has had difficulty breathing that is been ongoing for the past 1 to 2 weeks he thought it was related to the weather change. He is normally not very active and is using a power chair at home. He does have cough with no sputum production. He did have some nausea this morning but no vomiting. He denies any blood in his stool or urine. He states that his legs are weak, no dizziness no syncopal episodes. He denies chest pain. Patient is seen today in the emergency center waiting for a bed on the ICU. Patient is s/p insulin, bicarb, D50, Lokelma and calcium gluconate, as well as, 1 dose of IV Lasix 40 mg. EKG: Sinus rhythm right bundle branch block Chest x-ray: Small bilateral pleural effusions. Pulmonary vascular congestion. Cardiomegaly. Findings consistent with CHF. Renal ultrasound no hydronephrosis. Laboratory studies: WBC 6.2, hemoglobin 8.8. Platelet count 141. Sodium 140, initial potassium 8.1 now down to 5.0. Chloride 117 now 128, CO2 5. BUN 60 7 repeat 43. Creatinine 6.6 to repeat 3.81. Troponin 0.049. proBNP 36,500. Calcium 5.3. Influenza A, influenza B, RSV, COVID-19 not detected. Home cardiac medications: Amlodipine 5 mg daily, lisinopril 30 mg daily Echocardiogram reveals EF 40 to 45%. Small circumferential pericardial effusion. 10/20 patient seen and examined. Patient remains in ICU. He is undergoing hemodialysis with 2.5 L goal output today. Blood pressures mainly in the 150s to 160s over 1 rate in the 110 range. Amlodipine 10 mg daily was added yesterday as well as hydralazine 3 times a day. Physical examination: Gen: This is a frail cachectic appearing 87-year-old male VS: reviewed HEENT: Head is atraumatic, normocephalic. Pupils equal, round. Sclerae is anicteric. NECK: Supple. No JVD. LUNGS: Decreased air exchange bilaterally. No intercostal retractions. HEART: Regular rate and rhythm. Systolic murmur. ABDOMEN: Soft No tenderness. EXTREMITIES: No pedal edema. No calf tenderness. NEUROLOGICAL: Patient is awake, alert and oriented x3. Assessment: Acute hypoxic and hypercapnic respiratory failure secondary to acute on chronic systolic heart failure Acute kidney injury recently on HD Metabolic acidosis Elevated troponin secondary to acute kidney injury Cardiomyopathy of unclear etiology Thrombocytopenia and anemia COPD Plan: Continue with IV diuresis as well as hemodialysis for better by and management. No MARC inhibitor or are given kidney injury Continue with metoprolol as well as hydralazine for heart failure management. Amlodipine was also added for blood pressure control. Increase hydralazine first for better heart failure regimen. Ideally SGLT 2 inhibitor however monitor for now with kidney function Appears to slowly be improving on dialysis. Further recommendations to follow. Given age and multiple medical problems likely defer ischemic workup unless having more angina type symptoms Objective - Vital Signs Vital signs: Vital Signs Temp 97.8 F 10/21/23 08:00 Pulse 79 10/21/23 08:20 Resp 16 10/21/23 08:00 BP 154/65 10/21/23 08:00 Pulse Ox 96 10/21/23 08:10 FiO2 40 10/19/23 04:00 Intake & Output 10/20/23 10/21/23 10/21/23 18:59 06:59 18:59 Intake Total 920 Output Total 3550 655 Balance -2630 -655 Weight 59.5 kg Intake: IV 20 Sodium Chloride 0.9% 1, 20 000 ml @ 20 mls/hr IV . Q24H [facility] Rx#:[id number] Hemodialysis 900 Output: Urine 650 655 Hemodialysis 2900 Other: Voiding Method Indwelling Catheter Indwelling Catheter Indwelling Catheter - Labs CBC & Chem 7: 10/21/23 05:45 10/21/23 05:45 Labs: Abnormal Lab Results - Last 24 Hours (Table) 10/20/23 10/20/23 10/21/23 Range/Units 11:34 17:13 00:22 RBC (4.30-5.90) m/uL Hgb (13.0-17.5) gm/dL Hct (39.0-53.0) % MCV (80.0-100.0) fL MCHC (31.0-37.0) g/dL Lymphocytes # (1.0-4.8) k/uL Sodium (137-145) mmol/L BUN (9-20) mg/dL Creatinine (0.66-1.25) mg/dL Glucose (74-99) mg/dL POC Glucose (mg/dL) 128 H 292 H 182 H (70-110) mg/dL Calcium (8.4-10.2) mg/dL 10/21/23 10/21/23 10/21/23 Range/Units 05:45 05:45 06:49 RBC 2.62 L (4.30-5.90) m/uL Hgb 8.3 L (13.0-17.5) gm/dL Hct 27.2 L (39.0-53.0) % MCV 104.0 H (80.0-100.0) fL MCHC 30.3 L (31.0-37.0) g/dL Lymphocytes # 0.2 L (1.0-4.8) k/uL Sodium 133 L (137-145) mmol/L BUN 53 H (9-20) mg/dL Creatinine 3.17 H (0.66-1.25) mg/dL Glucose 165 H (74-99) mg/dL POC Glucose (mg/dL) 164 H (70-110) mg/dL Calcium 8.0 L (8.4-10.2) mg/dL
[2023-10-21 11:23] LABS: Glucose,Whole Blood 191 mg/dL (70-110)
--- NOTE | 2023-10-21 11:26 | P.PN ---
Subjective Progress Note Date: 10/21/23 Principal diagnosis: Acute kidney injury, hyperkalemia, COPD, CHF. Patient is an 87-year-old male with past medical history significant for COPD, chronic hypoxemic respiratory failure, hypertension, and kidney stones. He is quite upset to be in the hospital at this time, and he wants to go home. He reportedly lives by himself, and a neighbor had called for a wellbeing check yesterday evening. When EMS arrived, he was found to be hypoxic with an SpO2 of in the low 80s on his baseline 3 L/min nasal cannula. EMS then brought the patient to the emergency department. Patient was found to be in acute renal failure and severely hyperkalemic. BMP: Sodium 140, potassium 8.1, chloride 117, serum bicarb 12, BUN 67, creatinine 6.62, glucose 109. Lactic acid 1.1. Magnesium 2.5. Troponin 0.049. NT proBNP 36,500. CBC: WBC count 6.2, hemoglobin 8.8, hematocrit 30.6, platelets 141. Chest x-ray demonstrates cardiomegaly with pulmonary vascular congestion, small bilateral pleural effusions, and interstitial edema. Since his initial ER presentation, his oxygen demands increased and currently on 8 L/min high flow nasal cannula. He is alert and fully oriented, and currently refusing treatment. He is actually telling me that he is going to call a cab and leave this facility. He has not received any correction for his critically elevated potassium yet. ECG showing normal sinus rhythm with first-degree AV block and hyperacute T waves. I have repeatedly explained how critical his situation is, that if he were to leave at this time, he would likely had a cardiac arrest. He called his son, and I did speak to his son on the telephone about his father's critical condition. He is going to come up to the hospital and see his father. His son is encouraging him to stay in the hospital over the phone. After this, the patient has been more receptive to this interview and my questions. He states that he had kidney stones approximately 3 years ago. Denies NSAID use. Denies any trouble urinating such as dysuria, urinary frequency, hematuria, flank pain. Denies having an enlarged prostate. [id number] bladder scan reveals a minimal amount of urine, 140 cc. Patient is refusing urinary catheter. Nephrology has been consulted for management of his renal failure and hyperkalemia. As far as the patient's respiratory status. He states that has been getting worse over the last couple days, which he attributes to the heat outside. Denies any infectious-like symptoms such as fever, rhinorrhea, sore throat, cough, sputum production, hemoptysis. Denies any nausea or vomiting, diarrhea, or abdominal pain. He has been traveling by car [id number] to [place] over the last several weeks. Denies chest pain. Denies lower extremity swelling. He is audibly wheezing on examination. Does use inhalers and nebulizer at home, but is unsure of medications or doses. Reportedly a current smoker, approximately 1/2 to 1 ppd. Overall prognosis is guarded. Patient was reevaluated today on 10/16/2023, patient remains in the ICU, no significant improvement noted in his renal function, patient is making urine and responding to Lasix, however his chest x-ray is worsening, and I recommended that we start the patient on Lasix drip today. Nephrology is considering renal replacement therapy on this patient, however I believe the patient is going to be extremely reluctant and he will likely refuse it because I touch bases with him earlier regarding this, and the patient wants to be discharged home. Again it is a very difficult situation, patient is not very compliant, and he is resisting all kinds of treatment. Ultrasound of the kidneys showed no evidence of hydronephrosis. His metabolic acidosis did improve with bicarb drip, and this has been placed on hold for today. His hyperkalemia did improve with treatment. Blood pressure is also under control. Again his chest x-ray is showing worsening of his pulmonary edema. Labs today showed relatively normal WBC count, hemoglobin is 7.5. Platelets are 153. Potassium this morning is 5.0. It was 6.0 earlier. Patient remains on 15 L high flow nasal cannula and O2 saturation 97%. Hemodynamically patient is doing well blood pressure is 123/55, not requiring any pressors. Patient was reevaluated today on 10/17/2023, patient remains in the ICU, remains on Lasix drip, still requiring 15 L high flow nasal cannula, and had to be placed at night on BiPAP 04/01/60%, his Lasix drip is 10 mg an hour. Creatinine is a bit down to 5.77 today, patient was seen by nephrology, and seriously considering renal replacement therapy. In 24 hours, patient had about 1 L negative fluid balance. WBC count is 11.2 hemoglobin 7.4 electrolytes are normal BUN is 79 creatinine 5.77 chest x-ray continues to show pulmonary edema, slightly better compared to the chest x-ray he had on admission Was evaluated today on 10/18/2023, remains in the ICU, last night the patient became extremely agitated, had to be placed on Precedex which is now 0.4 mcg/kg/h. Remains on Lasix at 10 mg/h, putting out urine in the range of 60 to 80 cc/h. Chest x-ray is showing some improvement in his pulmonary edema. However considering the fact that his urine output is not as significant as it should be, I am recommending that we increase the Lasix to 20 mg/h drip. In the meantime patient had to be placed on BiPAP last night 12//40%. Nephrology was considering renal replacement therapy, and that is still being considered. Patient's clinical status remains marginal at best, I have a feeling that the patient may eventually require intubation mechanical ventilation, however we will try to manage for now conservatively unless condition gets any worse. WBC count today is 7 hemoglobin 7.4 potassium is 5.1 BUN is 94 creatinine is up again to 6.31 echocardiogram on this patient showed ejection fraction of 40 to 45% Progress note dated October 19, 2023. The patient is seen today in room 259. He is actually undergoing hemodialysis. Hemodialysis started yesterday. 800 cc was removed yesterday, and 2 L will be removed today, should the blood pressure remained stable. The patient was admitted to the hospital on October 14, with a diagnosis of acute kidney injury, and hyperkalemia, as well as COPD, and CHF. The patient was on 15 L high flow nasal O2, which has been turned down to 13 L. He is getting saline at KVO. He did use BiPAP throughout the night, with settings of 12/6, and 40%. Current laboratory data includes a white count 6.6, hemoglobin 7.1, hematocrit 23.6, and platelet count of 122,000. Sodium 133, potassium 4.6, chloride 99, CO2 28, BUN 72, creatinine 4.19. Glucose is 332. Calcium is 7.8. Chest x-ray shows some interstitial changes, consistent with interstitial edema and pulmonary vascular congestion. Progress note dated October 20, 2023. The patient is seen today in room 259. Clinically, the patient appears to be relatively stable. He is anxious to be discharged. He is on 6 L nasal cannula. He is getting saline at 10 cc an hour. He had hemodialysis yesterday, 2 L of fluid was removed. Not sure about hemodialysis today. The patient had an uneventful night according to the nurses. Current labs include a white count 8.6, hemoglobin 7.8, hematocrit 25.7, and platelet count 148,000. Sodium 134, potassium 4, chlorides 100, CO2 26, BUN 62, creatinine 3.52. Glucose was 195. Calcium 7.7. Chest x-ray is consistent with increasing pulmonary vascular congestion. Progress note dated October 21, 2023. The patient is seen today in room 259. 87-year-old male who is undergoing hemodialysis today. Clinically, the patient appears stable. He is on 3 L of oxygen by nasal cannula. The patient did have hemodialysis yesterday apparently. The plan today is to remove 2 L of fluid. The patient is not receiving any IV fluids. He is not having any respiratory distress. Current labs include a white count 8.3, hemoglobin 8.3, hematocrit 27.2, with a normal platelet count. Sodium 133, potassium 3.9, chlorides 101, CO2 23, BUN 53, and creatinine 3.17. Glucose is 191. Chest x-ray is largely unchanged. Objective - Vital Signs Vital signs: Vital Signs Temp 97.8 F 10/21/23 08:00 Pulse 79 10/21/23 08:20 Resp 16 10/21/23 08:00 BP 154/65 10/21/23 08:00 Pulse Ox 96 10/21/23 08:10 FiO2 40 10/19/23 04:00 Intake & Output 10/20/23 10/21/23 10/21/23 18:59 06:59 18:59 Intake Total 920 Output Total 3550 655 Balance -2630 -655 Weight 59.5 kg Intake: IV 20 Sodium Chloride 0.9% 1, 20 000 ml @ 20 mls/hr IV . Q24H [facility] Rx#:[id number] Hemodialysis 900 Output: Urine 650 655 Hemodialysis 2900 Other: Voiding Method Indwelling Catheter Indwelling Catheter Indwelling Catheter - Exam No acute distress, oriented 3. Frail appearing, currently on 3 L by nasal cannula. HEENT examination is grossly unremarkable. Mucous membranes are moist. No oral lesions. Neck supple. Full range of motion. No adenopathy thyromegaly or neck vein distention. Cardiovascular examination reveals regular rhythm rate. S1-S2 normal. No S3 or S4. No discernible murmur noted. Heart rate 79 bpm. Heart sounds are distant. Lungs reveal scattered crackles. Breath sounds equal. No wheezes or rhonchi. Breath sounds are equal bilaterally. Saturations are 96 %. Abdomen soft bowel sounds are heard. No masses or tenderness. Extremities are intact. No cyanosis or clubbing. Trace lower extremity edema. Skin is without rash or lesion. Neurologic examination is brief but nonfocal. - Labs CBC & Chem 7: 10/21/23 05:45 10/21/23 05:45 Labs: Abnormal Lab Results - Last 24 Hours (Table) 10/20/23 10/20/23 10/21/23 Range/Units 11:34 17:13 00:22 RBC (4.30-5.90) m/uL Hgb (13.0-17.5) gm/dL Hct (39.0-53.0) % MCV (80.0-100.0) fL MCHC (31.0-37.0) g/dL Lymphocytes # (1.0-4.8) k/uL Sodium (137-145) mmol/L BUN (9-20) mg/dL Creatinine (0.66-1.25) mg/dL Glucose (74-99) mg/dL POC Glucose (mg/dL) 128 H 292 H 182 H (70-110) mg/dL Calcium (8.4-10.2) mg/dL 10/21/23 10/21/23 10/21/23 Range/Units 05:45 05:45 06:49 RBC 2.62 L (4.30-5.90) m/uL Hgb 8.3 L (13.0-17.5) gm/dL Hct 27.2 L (39.0-53.0) % MCV 104.0 H (80.0-100.0) fL MCHC 30.3 L (31.0-37.0) g/dL Lymphocytes # 0.2 L (1.0-4.8) k/uL Sodium 133 L (137-145) mmol/L BUN 53 H (9-20) mg/dL Creatinine 3.17 H (0.66-1.25) mg/dL Glucose 165 H (74-99) mg/dL POC Glucose (mg/dL) 164 H (70-110) mg/dL Calcium 8.0 L (8.4-10.2) mg/dL Assessment and Plan Assessment: Acute on chronic hypoxemic respiratory failure secondary to fluid overload, and acute COPD exacerbation. Acute systolic CHF. History of chronic obstructive pulmonary disease. Chronic hypoxemic respiratory failure, on home O2 between 2 to 3 L/min. Current and ongoing tobacco dependence. Acute kidney injury/failure, currently undergoing intermittent hemodialysis. Acute severe non-anion gap metabolic acidosis. Severe hyperkalemia. Anemia of chronic disease. History of kidney stones. Plan: Plan dated October 19, 2023. The patient is seen today in room 259. The patient had hemodialysis yesterday, and will have hemodialysis today. He is currently on high flow nasal cannula at 15 L, turned down to 13 L. He is getting saline at KVO. Use BiPAP throughout the night, with settings of 12/6, and 40%. Labs, x-rays, medications are reviewed. The patient's overall prognosis remains guarded. We will continue to follow make recommendations along the way. Prognosis is guarded. Plan dated October 20, 2023. The patient is seen today in the intensive care unit, room 259. The patient is currently on 6 L of oxygen by nasal cannula. He is getting saline at 10 cc an hour. According to the nurses, the patient had a pretty uneventful night. He did have hemodialysis yesterday, October 18, 2 L of fluid was removed. The chest x-ray today shows increasing pulmonary vascular congestion. Labs, x-rays, and medications are reviewed. The patient's overall prognosis remains guarded. We will continue to follow the patient, and make recommendations along the way. The patient did use his BiPAP device at nighttime. Plan dated October 21, 2023. The patient is seen today in room 259. His oxygen has been weaned down to 3 L. The plan is for hemodialysis today, and removal of 2 L of fluid. The patient is not receiving any IV fluids. Labs, x-rays, and medications are reviewed. The patient is stable to be transferred out of the intensive care unit. Unfortunately, there are no beds available for transfer. We will continue to follow the patient, and make recommendations along the way. Prognosis is guarded. Time with Patient: Less than 30
--- NOTE | 2023-10-21 11:42 | P.PN ---
Subjective patient is seen for follow-up for acute kidney injury. Started renal replacement therapy on 10/18/2023 for worsening renal function, volume overload and worsening mentation. Patient had 2000 mL of UF yesterday. He is currently seen on hemodialysis. Mentation is much improved. Goal UF about 2 -2.5L today. urine output at 2.1 L for 24 hours Objective - Vital Signs Vital signs: Vital Signs Temp 97.8 F 10/21/23 08:00 Pulse 79 10/21/23 08:20 Resp 16 10/21/23 08:00 BP 154/65 10/21/23 08:00 Pulse Ox 96 10/21/23 08:10 FiO2 40 10/19/23 04:00 Intake & Output 10/20/23 10/21/23 10/21/23 18:59 06:59 18:59 Intake Total 920 Output Total 3550 655 Balance -2630 -655 Weight 59.5 kg Intake: IV 20 Sodium Chloride 0.9% 1, 20 000 ml @ 20 mls/hr IV . Q24H [facility] Rx#:[id number] Hemodialysis 900 Output: Urine 650 655 Hemodialysis 2900 Other: Voiding Method Indwelling Catheter Indwelling Catheter Indwelling Catheter - Exam patient is awake, comfortable, no acute distress. mentation has improved. Examination of the heart S1 and S2 Examination of the lungs decreased breath sounds at the bases Abdomen is soft nontender Examination of lower extremity shows no edema bilaterally [employer] exam grossly intact. - Labs CBC & Chem 7: 10/21/23 05:45 10/21/23 05:45 Labs: Abnormal Lab Results - Last 24 Hours (Table) 10/20/23 10/21/23 10/21/23 Range/Units 17:13 00:22 05:45 RBC 2.62 L (4.30-5.90) m/uL Hgb 8.3 L (13.0-17.5) gm/dL Hct 27.2 L (39.0-53.0) % MCV 104.0 H (80.0-100.0) fL MCHC 30.3 L (31.0-37.0) g/dL Lymphocytes # 0.2 L (1.0-4.8) k/uL Sodium (137-145) mmol/L BUN (9-20) mg/dL Creatinine (0.66-1.25) mg/dL Glucose (74-99) mg/dL POC Glucose (mg/dL) 292 H 182 H (70-110) mg/dL Calcium (8.4-10.2) mg/dL 10/21/23 10/21/23 10/21/23 Range/Units 05:45 06:49 11:22 RBC (4.30-5.90) m/uL Hgb (13.0-17.5) gm/dL Hct (39.0-53.0) % MCV (80.0-100.0) fL MCHC (31.0-37.0) g/dL Lymphocytes # (1.0-4.8) k/uL Sodium 133 L (137-145) mmol/L BUN 53 H (9-20) mg/dL Creatinine 3.17 H (0.66-1.25) mg/dL Glucose 165 H (74-99) mg/dL POC Glucose (mg/dL) 164 H 191 H (70-110) mg/dL Calcium 8.0 L (8.4-10.2) mg/dL Assessment and Plan Assessment: 1. Acute kidney injury secondary to ATN. Creatinine in November 2014 was 1.9. Started hemodialysis on 10/18/2023/renal function volume overload and altered mentation. No hydronephrosis noted on kidney ultrasound. Left kidney atrophic. 2. Metabolic acidosis secondary to acute kidney injury and IV fluids. Improved with bicarb drip. 3. Hyperkalemia secondary to acute kidney injury, acidosis and lisinopril. Improved with medical management. 4. Hypocalcemia secondary to acute kidney injury. Replaced. Better. 5. Benign hypertension. Controlled. 6. Acute hypoxic respiratory failure. improved with improvement in volume status. 7. Volume overload. 8. Acute on chronic systolic CHF with ejection fraction of 40 to 45% with mild to moderate tricuspid regurgitation and moderate mitral regurgitation. 9. Anemia. no significant iron deficiency. Iron saturation borderline. Status post 1 dose of Ferrlecit Plan: hemodialysis today with UF of about 2 - 2.5 L. change temporary dialysis catheter to IJ permacath Continue with current dose of IV Lasix. continue Aranesp Encourage increased oral intake.
[2023-10-21] MEDS: hydrALAZINE HCL 50 MG TAB PO SCH (15:39)
[2023-10-21 15:46] LABS: Glucose,Whole Blood 205 mg/dL (70-110)
[2023-10-21 21:03] LABS: Glucose,Whole Blood 161 mg/dL (70-110)
[2023-10-22 06:03] LABS: Glucose,Whole Blood 143 mg/dL (70-110)
[2023-10-22 06:57] LABS: Basophils % (A) 0 %; Eosinophils # (A) 0.2 k/uL (0-0.7); Eosinophils % (A) 1 %; HCT 26.4 % (39.0-53.0); HGB 8.7 gm/dL (13.0-17.5); Lymphocytes # (A) 0.3 k/uL (1.0-4.8); Lymphocytes % (A) 2 %; MCH 33.1 pg (25.0-35.0); MCHC 32.8 g/dL (31.0-37.0); MCV 101.2 fL (80.0-100.0); Macrocytosis Slight; Mean Platelet Volume 10.4; Monocytes # (A) 0.6 k/uL (0-1.0); Monocytes % (A) 4 %; Neutrophils # (A) 11.8 k/uL (1.3-7.7); Neutrophils % (A) 92 %; Platelet Count 135 k/uL (150-450); RBC 2.61 m/uL (4.30-5.90); RDW 14.6 % (11.5-15.5); WBC 12.9 k/uL (3.8-10.6)
[2023-10-22] MEDS: LIDOCAINE 1% INJ 10MG/ML (20 ML MDV) SQ ONE (08:02)
[2023-10-22] MEDS: MIDAZOLAM 2 MG/2 ML VIAL IVP ONE (08:02)
[2023-10-22] MEDS: fentaNYL (PF) 50 MCG/1 ML VIAL IVP ONE (08:02)
[2023-10-22] MEDS: SODIUM CHLORIDE 0.9% 500 ML 500 ML IV ONE (08:44)
--- NOTE | 2023-10-22 08:48 | IR ---
EXAMINATION TYPE: IR cvc insert >=5 years Intraoperative/procedural fluoroscopic services were provid ed. CLINICAL INDICATION:Male, 87 years old with history of HD CATHETER INSERTION; , [facility] Total fluoroscopy time is 1.7 min. DAP: 118 [id number] Please see the operative/procedural note for further details.
--- NOTE | 2023-10-22 09:01 | OP ---
OPERATIVE REPORT DATE OF SERVICE : 10/22/2023 PREOPERATIVE DIAGNOSIS: Acute chronic renal failure. POSTOPERATIVE DIAGNOSIS: Acute chronic renal failure. PROCEDURE PERFORMED: 1. 19 cm dialysis catheter placed, right jugular approach. 2. Removal of the right femoral catheter. DESCRIPTION OF PROCEDURE: The patient was brought to the laborer pipelines. Right side of the neck and chest and groin were prepped and drapes applied in sterile manner. A 1% lidocaine infiltrated in neck area. Ultrasound-guided micropuncture introduced through right jugular vein, micropuncture guidewire was passed. Then, we passed a 4-[place] sheath on top of the guidewire. Then through the sheath, we passed a regular guidewire which was parked in the inferior vena cava. Then tunnel was created. Through the tunnel we brought 19 cm dialysis catheter. Dilator advanced on top of the guidewire under fluoroscopic control. Then, sheath was advanced on top of the guidewire under fluoroscopic control. Through the sheath, we introduced dialysis catheter. Tip of the catheter in superior vena cavoatrial junction, flushed with heparin saline and hep-locked, secured with 3-0 nylon. Dressing applied and right groin catheter stitches were removed and catheter was removed. Pressure was held. The patient tolerated the procedure well. MMODL / IJN: [id number] / MTDD
--- NOTE | 2023-10-22 09:48 | P.PN ---
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 He has a past medical history of hypertension, COPD, tobacco use and dependence. We have been asked to evaluate the patient for CHF. Patient states he has had difficulty breathing that is bee n ongoing for the past 1 to 2 weeks he thought it was related to the weather change. He is normally not very active and is using a power chair at home. He does have cough with no sputum production. He did have some nausea this morning but no vomiting. He denies any blood in his stool or urine. He states that his legs are weak, no dizziness no syncopal episodes. He denies chest pain. Patient is seen today in the emergency center waiting for a bed on the ICU. Patient is s/p insulin, bicarb, D50, Lokelma and calcium gluconate, as well as, 1 dose of IV Lasix 40 mg. EKG: Sinus rhythm right bundle branch block Chest x-ray: Small bilateral pleural effusions. Pulmonary vascular congestion. Cardiomegaly. Findings consistent with CHF. Renal ultrasound no hydronephrosis. Laboratory studies: WBC 6.2, hemoglobin 8.8. Platelet count 141. Sodium 140, initial potassium 8.1 now down to 5.0. Chloride 117 now 128, CO2 5. BUN 60 7 repeat 43. Creatinine 6.6 to repeat 3.81. Troponin 0.049. proBNP 36,500. Calcium 5.3. Influenza A, influenza B, RSV, COVID-19 not detected. Home cardiac medications: Amlodipine 5 mg daily, lisinopril 30 mg daily Echocardiogram reveals EF 40 to 45%. Small circumferential pericardial effusion. 10/20 patient seen and examined. Patient remains in ICU. He is undergoing hemodialysis with 2.5 L goal output today. Blood pressures mainly in the 150s to 160s over 1 rate in the 110 range. Amlodipine 10 mg daily was added yesterday as well as hydralazine 3 times a day. 10/21 Patient has been transferred to the [facility] floor. He had a permanent dialysis catheter placed this morning by Dr. Odom. He is currently on IV Lasix 60 mg every 8 hours. Blood pressure 146/66, heart rate 78, pulse ox 97% on 4 L nasal cannula. Repeat blood work reveals WBC 12.9, hemoglobin 8.7, platelet count 135. Chemistry not available at the time of this dictation. Physical examination: Gen: This is a frail cachectic appearing 87-year-old male VS: reviewed HEENT: Head is atraumatic, normocephalic. Pupils equal, round. Sclerae is anicteric. NECK: Supple. No JVD. LUNGS: Decreased air exchange bilaterally. No intercostal retractions. HEART: Regular rate and rhythm. Systolic murmur. ABDOMEN: Soft No tenderness. EXTREMITIES: No pedal edema. No calf tenderness. NEUROLOGICAL: Patient is awake, alert and oriented x3. Assessment: Acute hypoxic and hypercapnic respiratory failure secondary to acute on chronic systolic heart failure Acute kidney injury recently on HD Metabolic acidosis Elevated troponin secondary to acute kidney injury Cardiomyopathy of unclear etiology Thrombocytopenia and anemia COPD Plan: Transition IV Lasix to oral Bumex 1 mg daily Hemodialysis per nephrology No MARC inhibitor or ARB given due to kidney injury Continue with metoprolol as well as hydralazine for heart failure management. Amlodipine was also added for blood pressure control. Increase hydralazine first for better heart failure regimen. Ideally SGLT 2 inhibitor however monitor for now with kidney function Appears to slowly be improving on dialysis. Further recommendations to follow. Given age and multiple medical problems likely defer ischemic workup unless having more angina type symptoms Nurse practitioner note has been reviewed, I agree with documented findings and plan of care. Patient was seen and examined. Objective - Vital Signs Vital signs: Vital Signs Temp 97.8 F 10/22/23 08:56 Pulse 78 10/22/23 08:56 Resp 20 10/22/23 08:56 BP 146/66 10/22/23 08:56 Pulse Ox 97 10/22/23 08:56 FiO2 40 10/19/23 04:00 Intake & Output 10/21/23 10/22/23 10/22/23 18:59 06:59 18:59 Intake Total 500 200 Output Total 3200 150 Balance -2700 -150 200 Intake: IV 200 Hemodialysis 500 Output: Urine 200 150 Uretheral (Brown) 50 Hemodialysis 3000 Other: Voiding Method Indwelling Catheter Indwelling Catheter Indwelling Catheter - Labs CBC & Chem 7: 10/22/23 06:29 10/21/23 05:45 Labs: Abnormal Lab Results - Last 24 Hours (Table) 10/21/23 10/21/23 10/21/23 Range/Units 11:22 15:45 21:02 WBC (3.8-10.6) k/uL RBC (4.30-5.90) m/uL Hgb (13.0-17.5) gm/dL Hct (39.0-53.0) % MCV (80.0-100.0) fL Plt Count (150-450) k/uL Neutrophils # (1.3-7.7) k/uL Lymphocytes # (1.0-4.8) k/uL POC Glucose (mg/dL) 191 H 205 H 161 H (70-110) mg/dL 10/22/23 10/22/23 Range/Units 06:01 06:29 WBC 12.9 H (3.8-10.6) k/uL RBC 2.61 L (4.30-5.90) m/uL Hgb 8.7 L (13.0-17.5) gm/dL Hct 26.4 L (39.0-53.0) % MCV 101.2 H (80.0-100.0) fL Plt Count 135 L (150-450) k/uL Neutrophils # 11.8 H (1.3-7.7) k/uL Lymphocytes # 0.3 L (1.0-4.8) k/uL POC Glucose (mg/dL) 143 H (70-110) mg/dL
[2023-10-22 10:46] LABS: BUN/Creat Ratio 13.45 Ratio (12.00-20.00); Blood Urea Nitrogen 44.4 mg/dL (9.0-27.0); Calcium 7.8 mg/dL (8.7-10.3); Carbon Dioxide 24.5 mmol/L (21.6-31.8); Chloride 98 mmol/L (96-109); Glucose 141 mg/dL (70-110); Potassium 4.4 mmol/L (3.5-5.5); Sodium 134 mmol/L (135-145)
[2023-10-22 11:44] LABS: Glucose,Whole Blood 247 mg/dL (70-110)
[2023-10-22] MEDS: ISOSORBIDE MONONITRATE ER 30 MG TAB.ER.24H PO SCH (12:27)
--- NOTE | 2023-10-22 13:03 | P.PN ---
Subjective patient is a 87-year-old gentleman past medical history significant for COPD, hypertension was brought to the ER for shortness of breath. Patient had a wellness check done on him after neighbors were concerned for his safety. When EMS arrived at this point patient was found to be short of breath. Patient history of COPD and currently uses 3 L of oxygen. Patient stated that he was short of breath for the last few days. Patient also complaining of wheezing. There was no complaint of fever or chills. There is no complaint of nausea, or abdominal pain. Patient denies any recent falls. Patient was initially very resistant to the idea of coming to the hospital. EMS brought patient to [facility] Initial lab work done in the ER showed W6.2, hemoglobin 8.8, platelet count 141, sodium 148, potassium 8.1, BUN 67, creatinine 6.62, troponin 0.049, proBNP [id number] Influenza A not detected Influenza B not detected RSV not detected COVID-19 not detected EKG done in the ER showed heart rate of75 , no ST segment elevation or depression seen, no T-wave inversions seen. Chest x-ray done in the ER showed small bilateral pleural effusion, pulm vascular congestion, cardiomegaly Because of hyperkalemia and acute kidney injury, patient was admitted to ICU under internal medicine service 10/15. Patient seen and examined. Currently on 15 L of oxygen. Blood work done this morning showed WBC 9.6, hemoglobin 7.5, sodium 137, potassium 6, BUN 78, creatinine 6.14. States breathing is very bad. Denies any cough. Patient started on Lasix drip 10/16. Patient seen and examined. Patient continues to be very noncompliant, keeps saying that he wants to go home. Currently on 15 L of oxygen. Blood work done this morning showed WBC 11.2, hemoglobin 7.4 sodium 136, potassium 4.7, BUN 79, creatinine 5.77. 10/17. Patient seen and examined. Currently on BiPAP. Patient is lethargic. Family at the bedside, all questions answered. Labs done this morning showed sodium 133, potassium 5.1, BUN 94, creatinine 6.31. Nephrology had recommended to start patient on dialysis, patient family agreeable 10/19/23 Patient lying in bed, mildly tachypneic He is fully awake and oriented Patient refused to continue the encounter and refused to answer further questions Chart and medical records were reviewed 10/20/2023 Patient awake alert at baseline Still have limited air entry on both lungs Abdomen soft No leg swelling He remains on IV Lasix 60 mg 3 times per day and IV Solu-Medrol 40 mg His oxygen requirement coming down from 15 L down to 7 L 10/21/2023 Patient looks mildly confused at baseline. He follows commands. He is less tachypneic and his oxygen requirement down to 4 L/day He remains on IV Lasix 60 mg 3 times a day He has acute kidney injury on admission and is getting hemodialysis per nephrology team No chest pain No other new complaint 10/02/2023 He is awake, breathing is improving He is currently saturating 97% on 4 L No chest pain He will get hemodialysis tomorrow Possible discharge in 24 to 48 hours if he keeps improving Objective - Vital Signs Vital signs: Vital Signs Temp 97.8 F 10/22/23 08:56 Pulse 76 10/22/23 12:55 Resp 20 10/22/23 08:56 BP 146/66 10/22/23 08:56 Pulse Ox 97 10/22/23 08:56 FiO2 40 10/19/23 04:00 Intake & Output 10/21/23 10/22/23 10/22/23 18:59 06:59 18:59 Intake Total 500 200 Output Total 3200 150 Balance -2700 -150 200 Intake: IV 200 Hemodialysis 500 Output: Urine 200 150 Uretheral (Brown) 50 Hemodialysis 3000 Other: Voiding Method Indwelling Catheter Indwelling Catheter Indwelling Catheter - Exam GENERAL: The patient is alert and oriented x3, not in any acute distress. Well developed, well nourished. HEENT: Pupils are round and equally reacting to light. EOMI. No scleral icterus. No conjunctival pallor. Normocephalic, atraumatic. No pharyngeal erythema. No thyromegaly. CARDIOVASCULAR: S1 and S2 present. No murmurs, rubs, or gallops. PULMONARY: Chest is clear to auscultation, no wheezing , no crackles. ABDOMEN: Soft, nontender, nondistended, normoactive bowel sounds. No palpable organomegaly. MUSCULOSKELETAL: No joint swelling or deformity. EXTREMITIES: No cyanosis, clubbing, or pedal edema. NEUROLOGICAL: Gross neurological examination did not reveal any focal deficits. SKIN: No rashes. no petechiae. - Labs CBC & Chem 7: 10/22/23 06:29 10/22/23 06:29 Labs: Abnormal Lab Results - Last 24 Hours (Table) 10/21/23 10/21/23 10/22/23 Range/Units 15:45 21:02 06:01 WBC (3.8-10.6) k/uL RBC (4.30-5.90) m/uL Hgb (13.0-17.5) gm/dL Hct (39.0-53.0) % MCV (80.0-100.0) fL Plt Count (150-450) k/uL Neutrophils # (1.3-7.7) k/uL Lymphocytes # (1.0-4.8) k/uL Sodium (135-145) mmol/L BUN (9.0-27.0) mg/dL Creatinine (0.6-1.5) mg/dL Est GFR (CKD-EPI) (>=60) Glucose (70-110) mg/dL POC Glucose (mg/dL) 205 H 161 H 143 H (70-110) mg/dL Calcium (8.7-10.3) mg/dL 10/22/23 10/22/23 10/22/23 Range/Units 06:29 06:29 11:42 WBC 12.9 H (3.8-10.6) k/uL RBC 2.61 L (4.30-5.90) m/uL Hgb 8.7 L (13.0-17.5) gm/dL Hct 26.4 L (39.0-53.0) % MCV 101.2 H (80.0-100.0) fL Plt Count 135 L (150-450) k/uL Neutrophils # 11.8 H (1.3-7.7) k/uL Lymphocytes # 0.3 L (1.0-4.8) k/uL Sodium 134 L (135-145) mmol/L BUN 44.4 H (9.0-27.0) mg/dL Creatinine 3.3 H (0.6-1.5) mg/dL Est GFR (CKD-EPI) 17 L (>=60) Glucose 141 H (70-110) mg/dL POC Glucose (mg/dL) 247 H (70-110) mg/dL Calcium 7.8 L (8.7-10.3) mg/dL Assessment and Plan Assessment: Acute on chronic hypoxemic respiratory failure acute COPD exacerbation. Acute kidney injury Acute on chronic systolic CHF, echocardiogram showing ejection fraction of 40 to 45% Acute severe non-anion gap metabolic acidosis, secondary to above Severe hyperkalemia Elevated troponins, in the setting of acute renal failure Anemia Current ongoing tobacco dependence History of kidney stones Plan: Patient remains to be monitored in the ICU Continue with IV Lasix 60 mg Continue with IV Solu-Medrol 40 mg Continue with bronchodilator Pulmonary and nephrology consults are following closely Continue with oxygen Labs and medication were reviewed.. Continue same treatment. Continue with symptomatic treatment. Resume home medication. Monitor labs and vitals. DVT and GI prophylaxis. Further recommendations as per clinical course of the patient DVT prophylaxis: Mechanical GI Prophylaxis: px Prognosis is guarded
--- NOTE | 2023-10-22 13:24 | P.PN ---
Subjective patient is seen for follow-up for acute kidney injury. Started renal replacement therapy on 10/18/2023 for worsening renal function, volume overload and worsening mentation. Patient had 2000 mL of UF yesterday. status post right IJ permacath placement today. urine output dropped to about 300 mL for 24 hours yesterday. Objective - Vital Signs Vital signs: Vital Signs Temp 97.8 F 10/22/23 08:56 Pulse 76 10/22/23 12:55 Resp 20 10/22/23 08:56 BP 146/66 10/22/23 08:56 Pulse Ox 97 10/22/23 08:56 FiO2 40 10/19/23 04:00 Intake & Output 10/21/23 10/22/23 10/22/23 18:59 06:59 18:59 Intake Total 500 200 Output Total 3200 150 Balance -2700 -150 200 Intake: IV 200 Hemodialysis 500 Output: Urine 200 150 Uretheral (Brown) 50 Hemodialysis 3000 Other: Voiding Method Indwelling Catheter Indwelling Catheter Indwelling Catheter - Exam patient is awake, comfortable, no acute distress. mentation has improved. Examination of the heart S1 and S2 Examination of the lungs decreased breath sounds at the bases Abdomen is soft nontender Examination of lower extremity shows no edema bilaterally [employer] exam grossly intact. - Labs CBC & Chem 7: 10/22/23 06:29 10/22/23 06:29 Labs: Abnormal Lab Results - Last 24 Hours (Table) 10/21/23 10/21/23 10/22/23 Range/Units 15:45 21:02 06:01 WBC (3.8-10.6) k/uL RBC (4.30-5.90) m/uL Hgb (13.0-17.5) gm/dL Hct (39.0-53.0) % MCV (80.0-100.0) fL Plt Count (150-450) k/uL Neutrophils # (1.3-7.7) k/uL Lymphocytes # (1.0-4.8) k/uL Sodium (135-145) mmol/L BUN (9.0-27.0) mg/dL Creatinine (0.6-1.5) mg/dL Est GFR (CKD-EPI) (>=60) Glucose (70-110) mg/dL POC Glucose (mg/dL) 205 H 161 H 143 H (70-110) mg/dL Calcium (8.7-10.3) mg/dL 10/22/23 10/22/23 10/22/23 Range/Units 06:29 06:29 11:42 WBC 12.9 H (3.8-10.6) k/uL RBC 2.61 L (4.30-5.90) m/uL Hgb 8.7 L (13.0-17.5) gm/dL Hct 26.4 L (39.0-53.0) % MCV 101.2 H (80.0-100.0) fL Plt Count 135 L (150-450) k/uL Neutrophils # 11.8 H (1.3-7.7) k/uL Lymphocytes # 0.3 L (1.0-4.8) k/uL Sodium 134 L (135-145) mmol/L BUN 44.4 H (9.0-27.0) mg/dL Creatinine 3.3 H (0.6-1.5) mg/dL Est GFR (CKD-EPI) 17 L (>=60) Glucose 141 H (70-110) mg/dL POC Glucose (mg/dL) 247 H (70-110) mg/dL Calcium 7.8 L (8.7-10.3) mg/dL Assessment and Plan Assessment: 1. Acute kidney injury secondary to ATN. Creatinine in November 2014 was 1.9. Started hemodialysis on 10/18/2023/renal function volume overload and altered mentation. No hydronephrosis noted on kidney ultrasound. Left kidney atrophic. 2. Metabolic acidosis secondary to acute kidney injury and IV fluids. Improved with bicarb drip. 3. Hyperkalemia secondary to acute kidney injury, acidosis and lisinopril. Improved with medical management. 4. Hypocalcemia secondary to acute kidney injury. Replaced. Better. 5. Benign hypertension. Controlled. 6. Acute hypoxic respiratory failure. improved with improvement in volume status. 7. Volume overload. 8. Acute on chronic systolic CHF with ejection fraction of 40 to 45% with mild to moderate tricuspid regurgitation and moderate mitral regurgitation. 9. Anemia. no significant iron deficiency. Iron saturation borderline. Status post 1 dose of Ferrlecit 10. Chronic kidney disease stage IV,with previous creatinine 1.9 in November 2014. Plan: hemodialysis in a.m. with UF of about 2 - 2.5 L. patient will need to be set up as outpatient for hemodialysis. continue Aranesp Encourage increased oral intake.
--- NOTE | 2023-10-22 13:40 | P.PN ---
Subjective Progress Note Date: 10/22/23 Principal diagnosis: Acute kidney injury, hyperkalemia, COPD, CHF. Patient is an 87-year-old male with past medical history significant for COPD, chronic hypoxemic respiratory failure, hypertension, and kidney stones. He is quite upset to be in the hospital at this time, and he wants to go home. He reportedly lives by himself, and a neighbor had called for a wellbeing check yesterday evening. When EMS arrived, he was found to be hypoxic with an SpO2 of in the low 80s on his baseline 3 L/min nasal cannula. EMS then brought the patient to the emergency department. Patient was found to be in acute renal failure and severely hyperkalemic. BMP: Sodium 140, potassium 8.1, chloride 117, serum bicarb 12, BUN 67, creatinine 6.62, glucose 109. Lactic acid 1.1. Magnesium 2.5. Troponin 0.049. NT proBNP 36,500. CBC: WBC count 6.2, hemoglobin 8.8, hematocrit 30.6, platelets 141. Chest x-ray demonstrates cardiomegaly with pulmonary vascular congestion, small bilateral pleural effusions, and interstitial edema. Since his initial ER presentation, his oxygen demands increased and currently on 8 L/min high flow nasal cannula. He is alert and fully oriented, and currently refusing treatment. He is actually telling me that he is going to call a cab and leave this facility. He has not received any correction for his critically elevated potassium yet. ECG showing normal sinus rhythm with first-degree AV block and hyperacute T waves. I have repeatedly explained how critical his situation is, that if he were to leave at this time, he would likely had a cardiac arrest. He called his son, and I did speak to his son on the telephone about his father's critical condition. He is going to come up to the hospital and see his father. His son is encouraging him to stay in the hospital over the phone. After this, the patient has been more receptive to this interview and my questions. He states that he had kidney stones approximately 3 years ago. Denies NSAID use. Denies any trouble urinating such as dysuria, urinary frequency, hematuria, flank pain. Denies having an enlarged prostate. [id number] bladder scan reveals a minimal amount of urine, 140 cc. Patient is refusing urinary catheter. Nephrology has been consulted for management of his renal failure and hyperkalemia. As far as the patient's respiratory status. He states that has been getting worse over the last couple days, which he attributes to the heat outside. Denies any infectious-like symptoms such as fever, rhinorrhea, sore throat, cough, sputum production, hemoptysis. Denies any nausea or vomiting, diarrhea, or abdominal pain. He has been traveling by car [id number] to [place] over the last several weeks. Denies chest pain. Denies lower extremity swelling. He is audibly wheezing on examination. Does use inhalers and nebulizer at home, but is unsure of medications or doses. Reportedly a current smoker, approximately 1/2 to 1 ppd. Overall prognosis is guarded. Patient was reevaluated today on 10/16/2023, patient remains in the ICU, no significant improvement noted in his renal function, patient is making urine and responding to Lasix, however his chest x-ray is worsening, and I recommended that we start the patient on Lasix drip today. Nephrology is considering renal replacement therapy on this patient, however I believe the patient is going to be extremely reluctant and he will likely refuse it because I touch bases with him earlier regarding this, and the patient wants to be discharged home. Again it is a very difficult situation, patient is not very compliant, and he is resisting all kinds of treatment. Ultrasound of the kidneys showed no evidence of hydronephrosis. His metabolic acidosis did improve with bicarb drip, and this has been placed on hold for today. His hyperkalemia did improve with treatment. Blood pressure is also under control. Again his chest x-ray is showing worsening of his pulmonary edema. Labs today showed relatively normal WBC count, hemoglobin is 7.5. Platelets are 153. Potassium this morning is 5.0. It was 6.0 earlier. Patient remains on 15 L high flow nasal cannula and O2 saturation 97%. Hemodynamically patient is doing well blood pressure is 123/55, not requiring any pressors. Patient was reevaluated today on 10/17/2023, patient remains in the ICU, remains on Lasix drip, still requiring 15 L high flow nasal cannula, and had to be placed at night on BiPAP 04/01/60%, his Lasix drip is 10 mg an hour. Creatinine is a bit down to 5.77 today, patient was seen by nephrology, and seriously considering renal replacement therapy. In 24 hours, patient had about 1 L negative fluid balance. WBC count is 11.2 hemoglobin 7.4 electrolytes are normal BUN is 79 creatinine 5.77 chest x-ray continues to show pulmonary edema, slightly better compared to the chest x-ray he had on admission Was evaluated today on 10/18/2023, remains in the ICU, last night the patient became extremely agitated, had to be placed on Precedex which is now 0.4 mcg/kg/h. Remains on Lasix at 10 mg/h, putting out urine in the range of 60 to 80 cc/h. Chest x-ray is showing some improvement in his pulmonary edema. However considering the fact that his urine output is not as significant as it should be, I am recommending that we increase the Lasix to 20 mg/h drip. In the meantime patient had to be placed on BiPAP last night 12//40%. Nephrology was considering renal replacement therapy, and that is still being considered. Patient's clinical status remains marginal at best, I have a feeling that the patient may eventually require intubation mechanical ventilation, however we will try to manage for now conservatively unless condition gets any worse. WBC count today is 7 hemoglobin 7.4 potassium is 5.1 BUN is 94 creatinine is up again to 6.31 echocardiogram on this patient showed ejection fraction of 40 to 45% Progress note dated October 19, 2023. The patient is seen today in room 259. He is actually undergoing hemodialysis. Hemodialysis started yesterday. 800 cc was removed yesterday, and 2 L will be removed today, should the blood pressure remained stable. The patient was admitted to the hospital on October 14, with a diagnosis of acute kidney injury, and hyperkalemia, as well as COPD, and CHF. The patient was on 15 L high flow nasal O2, which has been turned down to 13 L. He is getting saline at KVO. He did use BiPAP throughout the night, with settings of 12/6, and 40%. Current laboratory data includes a white count 6.6, hemoglobin 7.1, hematocrit 23.6, and platelet count of 122,000. Sodium 133, potassium 4.6, chloride 99, CO2 28, BUN 72, creatinine 4.19. Glucose is 332. Calcium is 7.8. Chest x-ray shows some interstitial changes, consistent with interstitial edema and pulmonary vascular congestion. Progress note dated October 20, 2023. The patient is seen today in room 259. Clinically, the patient appears to be relatively stable. He is anxious to be discharged. He is on 6 L nasal cannula. He is getting saline at 10 cc an hour. He had hemodialysis yesterday, 2 L of fluid was removed. Not sure about hemodialysis today. The patient had an uneventful night according to the nurses. Current labs include a white count 8.6, hemoglobin 7.8, hematocrit 25.7, and platelet count 148,000. Sodium 134, potassium 4, chlorides 100, CO2 26, BUN 62, creatinine 3.52. Glucose was 195. Calcium 7.7. Chest x-ray is consistent with increasing pulmonary vascular congestion. Progress note dated October 21, 2023. The patient is seen today in room 259. 87-year-old male who is undergoing hemodialysis today. Clinically, the patient appears stable. He is on 3 L of oxygen by nasal cannula. The patient did have hemodialysis yesterday apparently. The plan today is to remove 2 L of fluid. The patient is not receiving any IV fluids. He is not having any respiratory distress. Current labs include a white count 8.3, hemoglobin 8.3, hematocrit 27.2, with a normal platelet count. Sodium 133, potassium 3.9, chlorides 101, CO2 23, BUN 53, and creatinine 3.17. Glucose is 191. Chest x-ray is largely unchanged. Progress note dated October 22, 2023. The patient was seen yesterday in the intensive care unit. Today, the patient is seen in room 453. The patient continues on oxygen, by nasal cannula at 4 L. He is not receiving any IV fluids. The patient's Solu-Medrol, is changed to prednisone, 30 mg a day. The patient appears a bit agitated today. Current labs include a white count of 12.9, hemoglobin 8.7, hematocrit 26.4, and platelet count 135,000. Sodium 134, potassium 4.4, chlorides 98, CO2 25, BUN 44, creatinine 3.3. Glucose is 247. Calcium is 7.8. Objective - Vital Signs Vital signs: Vital Signs Temp 98.2 F 10/22/23 13:30 Pulse 71 10/22/23 13:30 Resp 20 10/22/23 13:30 BP 127/55 10/22/23 13:30 Pulse Ox 95 10/22/23 13:30 FiO2 40 10/19/23 04:00 Intake & Output 10/21/23 10/22/23 10/22/23 18:59 06:59 18:59 Intake Total 500 200 Output Total 3200 150 Balance -2700 -150 200 Intake: IV 200 Hemodialysis 500 Output: Urine 200 150 Uretheral (Brown) 50 Hemodialysis 3000 Other: Voiding Method Indwelling Catheter Indwelling Catheter Indwelling Catheter - Exam No acute distress, oriented 3. Frail appearing, currently on 4 L by nasal cannula. HEENT examination is grossly unremarkable. Mucous membranes are moist. No oral lesions. Neck supple. Full range of motion. No adenopathy thyromegaly or neck vein distention. Cardiovascular examination reveals regular rhythm rate. S1-S2 normal. No S3 or S4. No discernible murmur noted. Heart rate 73 bpm. Heart sounds are distant. Lungs reveal scattered crackles. Breath sounds equal. No wheezes or rhonchi. Breath sounds are equal bilaterally. Saturations are 95 %. Abdomen soft bowel sounds are heard. No masses or tenderness. Extremities are intact. No cyanosis or clubbing. Trace lower extremity edema. Skin is without rash or lesion. Neurologic examination is brief but nonfocal. - Labs CBC & Chem 7: 10/22/23 06:29 10/22/23 06:29 Labs: Abnormal Lab Results - Last 24 Hours (Table) 10/21/23 10/21/23 10/22/23 Range/Units 15:45 21:02 06:01 WBC (3.8-10.6) k/uL RBC (4.30-5.90) m/uL Hgb (13.0-17.5) gm/dL Hct (39.0-53.0) % MCV (80.0-100.0) fL Plt Count (150-450) k/uL Neutrophils # (1.3-7.7) k/uL Lymphocytes # (1.0-4.8) k/uL Sodium (135-145) mmol/L BUN (9.0-27.0) mg/dL Creatinine (0.6-1.5) mg/dL Est GFR (CKD-EPI) (>=60) Glucose (70-110) mg/dL POC Glucose (mg/dL) 205 H 161 H 143 H (70-110) mg/dL Calcium (8.7-10.3) mg/dL 10/22/23 10/22/23 10/22/23 Range/Units 06:29 06:29 11:42 WBC 12.9 H (3.8-10.6) k/uL RBC 2.61 L (4.30-5.90) m/uL Hgb 8.7 L (13.0-17.5) gm/dL Hct 26.4 L (39.0-53.0) % MCV 101.2 H (80.0-100.0) fL Plt Count 135 L (150-450) k/uL Neutrophils # 11.8 H (1.3-7.7) k/uL Lymphocytes # 0.3 L (1.0-4.8) k/uL Sodium 134 L (135-145) mmol/L BUN 44.4 H (9.0-27.0) mg/dL Creatinine 3.3 H (0.6-1.5) mg/dL Est GFR (CKD-EPI) 17 L (>=60) Glucose 141 H (70-110) mg/dL POC Glucose (mg/dL) 247 H (70-110) mg/dL Calcium 7.8 L (8.7-10.3) mg/dL Assessment and Plan Assessment: Acute on chronic hypoxemic respiratory failure secondary to fluid overload, and acute COPD exacerbation. Acute systolic CHF. History of chronic obstructive pulmonary disease. Chronic hypoxemic respiratory failure, on home O2 between 2 to 3 L/min. Current and ongoing tobacco dependence. Acute kidney injury/failure, currently undergoing intermittent hemodialysis. Acute severe non-anion gap metabolic acidosis. Severe hyperkalemia. Anemia of chronic disease. History of kidney stones. Plan: Plan dated October 19, 2023. The patient is seen today in room 259. The patient had hemodialysis yesterday, and will have hemodialysis today. He is currently on high flow nasal cannula at 15 L, turned down to 13 L. He is getting saline at KVO. Use BiPAP throughout the night, with settings of 12/6, and 40%. Labs, x-rays, medications are reviewed. The patient's overall prognosis remains guarded. We will continue to follow make recommendations along the way. Prognosis is guarded. Plan dated October 20, 2023. The patient is seen today in the intensive care unit, room 259. The patient is currently on 6 L of oxygen by nasal cannula. He is getting saline at 10 cc an hour. According to the nurses, the patient had a pretty uneventful night. He did have hemodialysis yesterday, October 18, 2 L of fluid was removed. The chest x-ray today shows increasing pulmonary vascular congestion. Labs, x-rays, and medications are reviewed. The patient's overall prognosis remains guarded. We will continue to follow the patient, and make recommendations along the way. The patient did use his BiPAP device at nighttime. Plan dated October 21, 2023. The patient is seen today in room 259. His oxygen has been weaned down to 3 L. The plan is for hemodialysis today, and removal of 2 L of fluid. The patient is not receiving any IV fluids. Labs, x-rays, and medications are reviewed. The patient is stable to be transferred out of the intensive care unit. Unfortunately, there are no beds available for transfer. We will continue to follow the patient, and make recommendations along the way. Prognosis is guarded. Plan dated October 22, 2023. The patient was seen yesterday in the intensive care unit, room 259. Today, he was moved out to the general medical floor, room 453. The patient continues on nasal O2 at 4 L. He is not receiving any IV fluids. Labs, x-rays, and medications are reviewed. The patient's overall prognosis remains very guarded. Will continue to follow the patient, make recommendations along the way. Time with Patient: Less than 30
[2023-10-22] MEDS ORDERED: BUMETANIDE 1 MG TAB PO SCH (16:00)
[2023-10-22 16:30] LABS: Glucose,Whole Blood 301 mg/dL (70-110)
[2023-10-22 20:53] LABS: Glucose,Whole Blood 271 mg/dL (70-110)
[2023-10-23 05:39] LABS: Glucose,Whole Blood 132 mg/dL (70-110)
--- NOTE | 2023-10-23 09:43 | P.PN ---
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 He has a past medical history of hypertension, COPD, tobacco use and dependence. We have been asked to evaluate the patient for CHF. Patient states he has had difficulty breathing that is bee n ongoing for the past 1 to 2 weeks he thought it was related to the weather change. He is normally not very active and is using a power chair at home. He does have cough with no sputum production. He did have some nausea this morning but no vomiting. He denies any blood in his stool or urine. He states that his legs are weak, no dizziness no syncopal episodes. He denies chest pain. Patient is seen today in the emergency center waiting for a bed on the ICU. Patient is s/p insulin, bicarb, D50, Lokelma and calcium gluconate, as well as, 1 dose of IV Lasix 40 mg. EKG: Sinus rhythm right bundle branch block Chest x-ray: Small bilateral pleural effusions. Pulmonary vascular congestion. Cardiomegaly. Findings consistent with CHF. Renal ultrasound no hydronephrosis. Laboratory studies: WBC 6.2, hemoglobin 8.8. Platelet count 141. Sodium 140, initial potassium 8.1 now down to 5.0. Chloride 117 now 128, CO2 5. BUN 60 7 repeat 43. Creatinine 6.6 to repeat 3.81. Troponin 0.049. proBNP 36,500. Calcium 5.3. Influenza A, influenza B, RSV, COVID-19 not detected. Home cardiac medications: Amlodipine 5 mg daily, lisinopril 30 mg daily Echocardiogram reveals EF 40 to 45%. Small circumferential pericardial effusion. 10/20 patient seen and examined. Patient remains in ICU. He is undergoing hemodialysis with 2.5 L goal output today. Blood pressures mainly in the 150s to 160s over 1 rate in the 110 range. Amlodipine 10 mg daily was added yesterday as well as hydralazine 3 times a day. 10/21 Patient has been transferred to [facility] floor. He had a permanent dialysis catheter placed this morning by Dr. Odom. He is currently on IV Lasix 60 mg every 8 hours. Blood pressure 146/66, heart rate 78, pulse ox 97% on 4 L nasal cannula. Repeat blood work reveals WBC 12.9, hemoglobin 8.7, platelet count 135. Chemistry not available at the time of this dictation. 10/22 Patient is scheduled for hemodialysis this morning. He had permanent dialysis catheter placed yesterday. Repeat blood work is not available at the time of this dictation. Yesterday's chemistry revealed sodium 134, potassium 4.4, BUN 44 and creatinine 3.3. Patient has had improvement of his kidney function but low urine output. He denies having any chest pain. He states he wants to go ho me soon. Blood pressure 124/54, heart rate 63, afebrile, pulse ox 97% on 4 L nasal cannula. Physical examination: Gen: This is a frail cachectic appearing 87-year-old male VS: reviewed LUNGS: Decreased air exchange bilaterally. No intercostal retractions. HEART: Regular rate and rhythm. Systolic murmur. ABDOMEN: Soft No tenderness. EXTREMITIES: No pedal edema. No calf tenderness. NEUROLOGICAL: Patient is awake, alert and oriented x3. Assessment: Acute hypoxic and hypercapnic respiratory failure secondary to acute on chronic systolic heart failure Acute kidney injury on HD Metabolic acidosis Elevated troponin secondary to acute kidney injury Cardiomyopathy of unclear etiology Thrombocytopenia and anemia COPD Plan: Continue patient on oral Bumex 1 mg daily Hemodialysis per nephrology No MARC inhibitor or ARB given due to kidney injury Continue with metoprolol as well as hydralazine for heart failure management. Amlodipine was also added for blood pressure control. Increase hydralazine first for better heart failure regimen. Ideally SGLT 2 inhibitor however monitor for now with kidney function Appears to slowly be improving on dialysis. Further recommendations to follow. Given age and multiple medical problems likely defer ischemic workup unless having more angina type symptoms Nurse practitioner note has been reviewed, I agree with documented findings and plan of care. Patient was seen and examined. Objective - Vital Signs Vital signs: Vital Signs Temp 97.8 F 10/23/23 07:55 Pulse 63 10/23/23 07:55 Resp 16 10/23/23 07:55 BP 124/54 10/23/23 07:55 Pulse Ox 97 10/23/23 07:55 FiO2 40 10/19/23 04:00 Intake & Output 10/22/23 10/23/23 10/23/23 18:59 06:59 18:59 Intake Total 200 Output Total 250 140 Balance -50 -140 Intake: IV 200 Output: Urine 250 140 Uretheral (Brown) 150 Other: Voiding Method Indwelling Catheter Urinal # Bowel Movements 1 - Labs CBC & Chem 7: 10/22/23 06:29 10/22/23 06:29 Labs: Abnormal Lab Results - Last 24 Hours (Table) 10/22/23 10/22/23 10/22/23 Range/Units 06:29 11:42 16:29 Sodium 134 L (135-145) mmol/L BUN 44.4 H (9.0-27.0) mg/dL Creatinine 3.3 H (0.6-1.5) mg/dL Est GFR (CKD-EPI) 17 L (>=60) Glucose 141 H (70-110) mg/dL POC Glucose (mg/dL) 247 H 301 H (70-110) mg/dL Calcium 7.8 L (8.7-10.3) mg/dL 10/22/23 10/23/23 Range/Units 20:50 05:37 Sodium (135-145) mmol/L BUN (9.0-27.0) mg/dL Creatinine (0.6-1.5) mg/dL Est GFR (CKD-EPI) (>=60) Glucose (70-110) mg/dL POC Glucose (mg/dL) 271 H 132 H (70-110) mg/dL Calcium (8.7-10.3) mg/dL
[2023-10-23 12:18] LABS: Glucose,Whole Blood 141 mg/dL (70-110)
[2023-10-23] MEDS: BUMETANIDE 1 MG TAB PO SCH (13:30)
[2023-10-23] MEDS: predniSONE 10 MG TAB PO SCH (13:31)
--- NOTE | 2023-10-23 14:41 | P.PN ---
Subjective Progress Note Date: 10/23/23 Patient is an 87-year-old male with past medical history significant for COPD, chronic hypoxemic respiratory failure, hypertension, and kidney stones. He is quite upset to be in the hospital at this time, and he wants to go home. He reportedly lives by himself, and a neighbor had called for a wellbeing check yesterday evening. When EMS arrived, he was found to be hypoxic with an SpO2 of in the low 80s on his baseline 3 L/min nasal cannula. EMS then brought the patient to the emergency department. Patient was found to be in acute renal failure and severely hyperkalemic. BMP: Sodium 140, potassium 8.1, chloride 117, serum bicarb 12, BUN 67, creatinine 6.62, glucose 109. Lactic acid 1.1. Magnes ium 2.5. Troponin 0.049. NT proBNP 36,500. CBC: WBC count 6.2, hemoglobin 8.8, hematocrit 30.6, platelets 141. Chest x-ray demonstrates cardiomegaly with pulmonary vascular congestion, small bilateral pleural effusions, and interstitial edema. Since his initial ER presentation, his oxygen demands increased and currently on 8 L/min high flow nasal cannula. He is alert and fully oriented, and currently refusing treatment. He is actually telling me that he is going to call a cab and leave this facility. He has not received any correction for his critically elevated potassium yet. ECG showing normal sinus rhythm with first-degree AV block and hyperacute T waves. I have repeatedly explained how critical his situation is, that if he were to leave at this time, he would likely had a cardiac arrest. He called his son, and I did speak to his son on the telephone about his father's critical condition. He is going to come up to the hospital and see his father. His son is encouraging him to stay in the hospital over the phone. After this, the patient has been more receptive to this interview and my questions. He states that he had kidney stones approximately 3 years ago. Denies NSAID use. Denies any trouble urinating such as dysuria, urinary frequency, hematuria, flank pain. Denies having an enlarged prostate. [id number] bladder scan reveals a minimal amount of urine, 140 cc. Patient is refusing urinary catheter. Nephrology has been consulted for management of his renal failure and hyperkalemia. As far as the patient's respiratory status. He states that has been getting worse over the last couple days, which he attributes to the heat outside. Denies any infectious-like symptoms such as fever, rhinorrhea, sore throat, cough, sputum production, hemoptysis. Denies any nausea or vomiting, diarrhea, or abdominal pain. He has been traveling by car [id number] to [place] over the last several weeks. Denies chest pain. Denies lower extremity swelling. He is audibly wheezing on examination. Does use inhalers and nebulizer at home, but is unsure of medications or doses. Reportedly a current smoker, approximately 1/2 to 1 ppd. Overall prognosis is guarded. Patient was reevaluated today on 10/16/2023, patient remains in the ICU, no significant improvement noted in his renal function, patient is making urine and responding to Lasix, however his chest x-ray is worsening, and I recommended that we start the patient on Lasix drip today. Nephrology is considering renal replacement therapy on this patient, however I believe the patient is going to be extremely reluctant and he will likely refuse it because I touch bases with him earlier regarding this, and the patient wants to be discharged home. Again it is a very difficult situation, patient is not very compliant, and he is resisting all kinds of treatment. Ultrasound of the kidneys showed no evidence of hydronephrosis. His metabolic acidosis did improve with bicarb drip, and this has been placed on hold for today. His hyperkalemia did improve with treatment. Blood pressure is also under control. Again his chest x-ray is showing worsening of his pulmonary edema. Labs today showed relatively normal WBC count, hemoglobin is 7.5. Platelets are 153. Potassium this morning is 5.0. It was 6.0 earlier. Patient remains on 15 L high flow nasal cannula and O2 saturation 97%. Hemodynamically patient is doing well blood pressure is 123/55, not requiring any pressors. Patient was reevaluated today on 10/17/2023, patient remains in the ICU, remains on Lasix drip, still requiring 15 L high flow nasal cannula, and had to be placed at night on BiPAP 04/01/60%, his Lasix drip is 10 mg an hour. Creatinine is a bit down to 5.77 today, patient was seen by nephrology, and seriously considering renal replacement therapy. In 24 hours, patient had about 1 L negative fluid balance. WBC count is 11.2 hemoglobin 7.4 electrolytes are normal BUN is 79 creatinine 5.77 chest x-ray continues to show pulmonary edema, slightly better compared to the chest x-ray he had on admission Was evaluated today on 10/18/2023, remains in the ICU, last night the patient became extremely agitated, had to be placed on Precedex which is now 0.4 mcg/kg/h. Remains on Lasix at 10 mg/h, putting out urine in the range of 60 to 80 cc/h. Chest x-ray is showing some improvement in his pulmonary edema. However considering the fact that his urine output is not as significant as it should be, I am recommending that we increase the Lasix to 20 mg/h drip. In the meantime patient had to be placed on BiPAP last night 12//40%. Nephrology was considering renal replacement therapy, and that is still being considered. Patient's clinical status remains marginal at best, I have a feeling that the patient may eventually require intubation mechanical ventilation, however we will try to manage for now conservatively unless condition gets any worse. WBC count today is 7 hemoglobin 7.4 potassium is 5.1 BUN is 94 creatinine is up again to 6.31 echocardiogram on this patient showed ejection fraction of 40 to 45% Progress note dated October 19, 2023. The patient is seen today in room 259. He is actually undergoing hemodialysis. Hemodialysis started yesterday. 800 cc was removed yesterday, and 2 L will be r emoved today, should the blood pressure remained stable. The patient was admitted to the hospital on October 14, with a diagnosis of acute kidney injury, and hyperkalemia, as well as COPD, and CHF. The patient was on 15 L high flow nasal O2, which has been turned down to 13 L. He is getting saline at KVO. He did use BiPAP throughout the night, with settings of 12/6, and 40%. Current laboratory data includes a white count 6.6, hemoglobin 7.1, hematocrit 23.6, and platelet count of 122,000. Sodium 133, potassium 4.6, chloride 99, CO2 28, BUN 72, creatinine 4.19. Glucose is 332. Calcium is 7.8. Chest x-ray shows some interstitial changes, consistent with interstitial edema and pulmonary vascular congestion. Progress note dated October 20, 2023. The patient is seen today in room 259. Clinically, the patient appears to be relatively stable. He is anxious to be discharged. He is on 6 L nasal cannula. He is getting saline at 10 cc an hour. He had hemodialysis yesterday, 2 L of fluid was removed. Not sure about hemodialysis today. The patient had an uneventful night according to the nurses. Current labs include a white count 8.6, hemoglobin 7.8, hematocrit 25.7, and platelet count 148,000. Sodium 134, potassium 4, chlorides 100, CO2 26, BUN 62, creatinine 3.52. Glucose was 195. Calcium 7.7. Chest x-ray is consistent with increasing pulmonary vascular congestion. Progress note dated October 21, 2023. The patient is seen today in room 259. 87-year-old male who is undergoing hemodialysis today. Clinically, the patient appears stable. He is on 3 L of oxygen by nasal cannula. The patient did have hemodialysis yesterday apparently. The plan today is to remove 2 L of fluid. The patient is not receiving any IV fluids. He is not having any respiratory distress. Current labs include a white count 8.3, hemoglobin 8.3, hematocrit 27.2, with a normal platelet count. Sodium 133, potassium 3.9, chlorides 101, CO2 23, BUN 53, and creatinine 3.17. Glucose is 191. Chest x-ray is largely unchanged. Progress note dated October 22, 2023. The patient was seen yesterday in the intensive care unit. Today, the patient is seen in room 453. The patient continues on oxygen, by nasal cannula at 4 L. He is not receiving any IV fluids. The patient's Solu-Medrol, is changed to prednisone, 30 mg a day. The patient appears a bit agitated today. Current labs include a white count of 12.9, hemoglobin 8.7, hematocrit 26.4, and platelet count 135,000. Sodium 134, potassium 4.4, chlorides 98, CO2 25, BUN 44, creatinine 3.3. Glucose is 247. Calcium is 7.8. The patient is seen today October 23, 2023 in follow-up on the regular medical floor. He is currently resting comfortably in bed. Awake and alert in no acute distress. Receiving hemodialysis today with a goal of -1.5 L. He is maintaining good O2 saturations in the 90s on 4 L/min per nasal cannula. Glucose 141. He remains on DuoNeb inhalations, Symbicort, prednisone taper. Objective - Vital Signs Vital signs: Vital Signs Temp 97.6 F 10/23/23 13:57 Pulse 62 10/23/23 13:57 Resp 20 10/23/23 13:57 BP 141/66 10/23/23 13:57 Pulse Ox 97 10/23/23 13:57 FiO2 40 10/19/23 04:00 Intake & Output 10/22/23 10/23/23 10/23/23 18:59 06:59 18:59 Intake Total 200 500 Output Total 257 418 7966 Balance -50 -140 -1000 Intake: IV 200 Hemodialysis 500 Output: Urine 250 140 Uretheral (Brown) 150 Hemodialysis 1500 Other: Voiding Method Indwelling Catheter Urinal Urinal # Bowel Movements 1 - Exam GENERAL EXAM: Alert, frail 87-year-old male, on 4 L nasal cannula, comfortable in no apparent distress. HEAD: Normocephalic. EYES: Normal reaction of pupils, equal size. NOSE: Clear with pink turbinates. THROAT: No erythema or exudates. NECK: No masses, no JVD. Right jugular dialysis catheter in place. CHEST: No chest wall deformity. LUNGS: Equal air entry with few scattered rhonchi. CVS: S1 and S2 normal with no audible murmur, regular rhythm. ABDOMEN: No hepatosplenomegaly, normal bowel sounds, no guarding or rigidity. SPINE: No scoliosis or deformity SKIN: No rashes CENTRAL NERVOUS SYSTEM: No focal deficits, tone is normal in all 4 extremities. EXTREMITIES: There is no peripheral edema. No clubbing, no cyanosis. Peripheral pulses are intact. - Labs CBC & Chem 7: 10/22/23 06:29 10/22/23 06:29 Labs: Abnormal Lab Results - Last 24 Hours (Table) 10/22/23 10/22/23 10/23/23 Range/Units 16:29 20:50 05:37 POC Glucose (mg/dL) 301 H 271 H 132 H (70-110) mg/dL 10/23/23 Range/Units 12:13 POC Glucose (mg/dL) 141 H (70-110) mg/dL Assessment and Plan Assessment: Acute on chronic hypoxemic respiratory failure secondary to fluid overload, and acute COPD exacerbation Acute exacerbation of chronic systolic congestive heart failure History of chronic obstructive pulmonary disease Chronic hypoxemic respiratory failure, on home O2 between 2 to 3 L/min Current and ongoing tobacco dependence Acute kidney injury/failure, currently undergoing intermittent hemodialysis Acute severe non-anion gap metabolic acidosis Severe hyperkalemia Anemia of chronic disease History of kidney stones Plan: The patient was seen and evaluated Labs and medications reviewed Currently receiving hemodialysis Goal of 1.5 L to be removed Stable and on 4 L nasal cannula Titrate down the FiO2 as tolerated New prednisone taper Continue diuretics Patient declining subacute rehab Plan is for home with home care Needs dialysis arrangements We will continue to follow I have personally seen and examined the patient, performed the documentation and the assessment and plan as written. Number of minutes spent on the visit: 10.
--- NOTE | 2023-10-23 16:38 | P.PN ---
Subjective patient is seen for follow-up for acute kidney injury. Started renal replacement therapy on 10/18/2023 for worsening renal function, volume overload and worsening mentation. Patient is seen on hemodialysis.. Tolerating treatment well. Urine output dropped to about 390 mL for 24 hours . Objective - Vital Signs Vital signs: Vital Signs Temp 97.6 F 10/23/23 13:57 Pulse 62 10/23/23 13:57 Resp 20 10/23/23 13:57 BP 141/66 10/23/23 13:57 Pulse Ox 97 10/23/23 13:57 FiO2 40 10/19/23 04:00 Intake & Output 10/22/23 10/23/23 10/23/23 18:59 06:59 18:59 Intake Total 200 500 Output Total 717 422 0881 Balance -50 -140 -1000 Intake: IV 200 Hemodialysis 500 Output: Urine 250 140 Uretheral (Brown) 150 Hemodialysis 1500 Other: Voiding Method Indwelling Catheter Urinal Urinal # Bowel Movements 1 - Exam patient is awake, comfortable, no acute distress. mentation has improved. 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 - Labs CBC & Chem 7: 10/22/23 06:29 10/22/23 06:29 Labs: Abnormal Lab Results - Last 24 Hours (Table) 10/22/23 10/23/23 10/23/23 Range/Units 20:50 05:37 12:13 POC Glucose (mg/dL) 271 H 132 H 141 H (70-110) mg/dL Assessment and Plan Assessment: 1. Acute kidney injury secondary to ATN. Creatinine in November 2014 was 1.9. Started hemodialysis on 10/18/2023/renal function volume overload and altered mentation. No hydronephrosis noted on kidney ultrasound. Left kidney atrophic. 2. Metabolic acidosis secondary to acute kidney injury and IV fluids. Improved with bicarb drip. 3. Hyperkalemia secondary to acute kidney injury, acidosis and lisinopril. Improved with medical management. 4. Hypocalcemia, rule out nutritional vitamin D deficiency 5. Benign hypertension. Controlled. 6. Acute hypoxic respiratory failure. improved with improvement in volume status. 7. Volume overload. Improving. 8. Acute on chronic systolic CHF with ejection fraction of 40 to 45% with mild to moderate tricuspid regurgitation and moderate mitral regurgitation. 9. Anemia. no significant iron deficiency. Iron saturation borderline. Status post 1 dose of Ferrlecit 10. Chronic kidney disease stage IV,with previous creatinine 1.9 in November 2014. Plan: hemodialysis today with UF of 1 to 2 L. Check 25-hydroxy vitamin D level. patient will need to be set up as outpatient for hemodialysis. continue Aranesp Encourage increased oral intake.
[2023-10-23 16:54] LABS: Glucose,Whole Blood 317 mg/dL (70-110)
--- NOTE | 2023-10-23 17:37 | P.PN ---
Subjective patient is a 87-year-old gentleman past medical history significant for COPD, hypertension was brought to the ER for shortness of breath. Patient had a wellness check done on him after neighbors were concerned for his safety. When EMS arrived at this point patient was found to be short of breath. Patient history of COPD and currently uses 3 L of oxygen. Patient stated that he was short of breath for the last few days. Patient also complaining of wheezing. There was no complaint of fever or chills. There is no complaint of nausea, or abdominal pain. Patient denies any recent falls. Patient was initially very resistant to the idea of coming to the hospital. EMS brought patient to [facility] Initial lab work done in the ER showed W6.2, hemoglobin 8.8, platelet count 141, sodium 148, potassium 8.1, BUN 67, creatinine 6.62, troponin 0.049, proBNP 37557 Influenza A not detected Influenza B not detected RSV not detected COVID-19 not detected EKG done in the ER showed heart rate of75 , no ST segment elevation or depression seen, no T-wave inversions seen. Chest x-ray done in the ER showed small bilateral pleural effusion, pulm vascular congestion, cardiomegaly Because of hyperkalemia and acute kidney injury, patient was admitted to ICU under internal medicine service 10/15. Patient seen and examined. Currently on 15 L of oxygen. Blood work done this morning showed WBC 9.6, hemoglobin 7.5, sodium 137, potassium 6, BUN 78, creatinine 6.14. States breathing is very bad. Denies any cough. Patient started on Lasix drip 10/16. Patient seen and examined. Patient continues to be very noncompliant, keeps saying that he wants to go home. Currently on 15 L of oxygen. Blood work done this morning showed WBC 11.2, hemoglobin 7.4 sodium 136, potassium 4.7, BUN 79, creatinine 5.77. 10/17. Patient seen and examined. Currently on BiPAP. Patient is lethargic. Family at the bedside, all questions answered. Labs done this morning showed sodium 133, potassium 5.1, BUN 94, creatinine 6.31. Nephrology had recommended to start patient on dialysis, patient family agreeable 10/19/23 Patient lying in bed, mildly tachypneic He is fully awake and oriented Patient refused to continue the encounter and refused to answer further questions Chart and medical records were reviewed 10/20/2023 Patient awake alert at baseline Still have limited air entry on both lungs Abdomen soft No leg swelling He remains on IV Lasix 60 mg 3 times per day and IV Solu-Medrol 40 mg His oxygen requirement coming down from 15 L down to 7 L 10/21/2023 Patient looks mildly confused at baseline. He follows commands. He is less tachypneic and his oxygen requirement down to 4 L/day He remains on IV Lasix 60 mg 3 times a day He has acute kidney injury on admission and is getting hemodialysis per nephrology team No chest pain No other new complaint 10/22/2023 He is awake, breathing is improving He is currently saturating 97% on 4 L No chest pain He will get hemodialysis tomorrow Possible discharge in 24 to 48 hours if he keeps improving 10/23/2023 Patient looks tired and weak today, but awake and alert Breathing is okay and he is currently on 4 L oxygen and saturation more than 25% He is getting hemodialysis today Patient is declining to go to rehab and request to go home with home care Objective - Vital Signs Vital signs: Vital Signs Temp 97.6 F 10/23/23 13:57 Pulse 62 10/23/23 13:57 Resp 20 10/23/23 13:57 BP 141/66 10/23/23 13:57 Pulse Ox 97 10/23/23 13:57 FiO2 40 10/19/23 04:00 Intake & Output 10/22/23 10/23/23 10/23/23 18:59 06:59 18:59 Intake Total 200 500 Output Total 844 543 3809 Balance -50 -140 -1000 Intake: IV 200 Hemodialysis 500 Output: Urine 250 140 Uretheral (Brown) 150 Hemodialysis 1500 Other: Voiding Method Indwelling Catheter Urinal Urinal # Bowel Movements 1 - Exam GENERAL: The patient is alert and oriented x3, not in any acute distress. Well developed, well nourished. HEENT: Pupils are round and equally reacting to light. EOMI. No scleral icterus. No conjunctival pallor. Normocephalic, atraumatic. No pharyngeal erythema. No thyromegaly. CARDIOVASCULAR: S1 and S2 present. No murmurs, rubs, or gallops. PULMONARY: Chest is clear to auscultation, no wheezing , no crackles. ABDOMEN: Soft, nontender, nondistended, normoactive bowel sounds. No palpable organomegaly. MUSCULOSKELETAL: No joint swelling or deformity. EXTREMITIES: No cyanosis, clubbing, or pedal edema. NEUROLOGICAL: Gross neurological examination did not reveal any focal deficits. SKIN: No rashes. no petechiae. - Labs CBC & Chem 7: 10/22/23 06:29 10/22/23 06:29 Labs: Abnormal Lab Results - Last 24 Hours (Table) 10/22/23 10/22/23 10/23/23 Range/Units 16:29 20:50 05:37 POC Glucose (mg/dL) 301 H 271 H 132 H (70-110) mg/dL 10/23/23 Range/Units 12:13 POC Glucose (mg/dL) 141 H (70-110) mg/dL Assessment and Plan Assessment: Acute on chronic hypoxemic respiratory failure acute COPD exacerbation. Acute kidney injury Acute on chronic systolic CHF, echocardiogram showing ejection fraction of 40 to 45% Acute severe non-anion gap metabolic acidosis, secondary to above Severe hyperkalemia Elevated troponins, in the setting of acute renal failure Anemia Current ongoing tobacco dependence History of kidney stones Plan: Patient remains to be monitored in the ICU Continue with IV Lasix 60 mg Continue with IV Solu-Medrol 40 mg Continue with bronchodilator Pulmonary and nephrology consults are following closely Continue with oxygen Labs and medication were reviewed.. Continue same treatment. Continue with symptomatic treatment. Resume home medication. Monitor labs and vitals. DVT and GI prophylaxis. Further recommendations as per clinical course of the patient DVT prophylaxis: Mechanical GI Prophylaxis: px Prognosis is guarded
[2023-10-23 20:20] LABS: Glucose,Whole Blood 278 mg/dL (70-110)
[2023-10-24 05:59] LABS: Glucose,Whole Blood 135 mg/dL (70-110)
--- NOTE | 2023-10-24 10:23 | P.PN ---
Subjective Patient is seen in follow-up for acute kidney injury on chronic kidney disease. Started on hemodialysis October 18, 2023. Has permacath. Denies chest pain or shortness of breath. No vomiting or diarrhea. Vital signs are stable. General: No acute distress. HEENT: Head exam is unremarkable. On nasal cannula. LUNGS: Scattered rhonchi. HEART: Rate and Rhythm are regular. ABDOMEN: Nontender. EXTREMITITES: No edema. Objective - Vital Signs Vital signs: Vital Signs Temp 98.3 F 10/24/23 06:52 Pulse 62 10/24/23 07:50 Resp 18 10/24/23 07:50 BP 138/61 10/24/23 06:52 Pulse Ox 100 10/24/23 08:58 FiO2 40 10/19/23 04:00 Intake & Output 10/23/23 10/24/23 10/24/23 18:59 06:59 18:59 Intake Total 500 Output Total 1500 150 Balance -1000 -150 Intake: Hemodialysis 500 Output: Urine 150 Hemodialysis 1500 Other: Voiding Method Urinal Urinal Urinal # Voids 0 1 - Labs CBC & Chem 7: 10/22/23 06:29 10/22/23 06:29 Labs: Abnormal Lab Results - Last 24 Hours (Table) 10/22/23 10/23/23 10/23/23 Range/Units 06:29 12:13 16:53 POC Glucose (mg/dL) 141 H 317 H (70-110) mg/dL Vitamin D 25-Hydroxy 9.5 L (30.0-100.0) ng/mL 10/23/23 10/24/23 Range/Units 20:18 05:58 POC Glucose (mg/dL) 278 H 135 H (70-110) mg/dL Vitamin D 25-Hydroxy (30.0-100.0) ng/mL Assessment and Plan Plan: Assessment: 1. Acute kidney injury secondary to ATN. Creatinine over 6 on admission with no improvement. Subsequently started on hemodialysis October 18, 2023. Creatinine in November 2014 was 1.9. No hydronephrosis noted on kidney ultrasound. Left kidney atrophic. 2. Metabolic acidosis secondary to acute kidney injury and IV fluids. Improved with bicarb drip.. 3. Hyperkalemia secondary to acute kidney injury, acidosis and lisinopril. Improved with medical management and renal replacement therapy. 4. Hypocalcemia secondary to acute kidney injury. Replaced. Improved. 5. hypertension with chronic kidney disease. Controlled. 6. Acute hypoxic respiratory failure. On nasal cannula. 7. Volume overload. Improved with ultrafiltration. 8. Acute on chronic systolic CHF with ejection fraction of 40 to 45% with mild to moderate tricuspid regurgitation and moderate mitral regurgitation. 9. Anemia. Likely component of chronic kidney disease. On Aranesp. 10. Chronic kidney disease stage IV with creatinine 1.9 in November 2014. Plan: Hemodialysis Thursday. Maintain Bumex. Encouraged oral intake. Check phosphorus level. grievance manager to set up outpatient hemodialysis.
--- NOTE | 2023-10-24 10:45 | P.PN ---
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 He has a past medical history of hypertension, COPD, tobacco use and dependence. We have been asked to evaluate the patient for CHF. Patient states he has had difficulty breathing that is bee n ongoing for the past 1 to 2 weeks he thought it was related to the weather change. He is normally not very active and is using a power chair at home. He does have cough with no sputum production. He did have some nausea this morning but no vomiting. He denies any blood in his stool or urine. He states that his legs are weak, no dizziness no syncopal episodes. He denies chest pain. Patient is seen today in the emergency center waiting for a bed on the ICU. Patient is s/p insulin, bicarb, D50, Lokelma and calcium gluconate, as well as, 1 dose of IV Lasix 40 mg. EKG: Sinus rhythm right bundle branch block Chest x-ray: Small bilateral pleural effusions. Pulmonary vascular congestion. Cardiomegaly. Findings consistent with CHF. Renal ultrasound no hydronephrosis. Laboratory studies: WBC 6.2, hemoglobin 8.8. Platelet count 141. Sodium 140, initial potassium 8.1 now down to 5.0. Chloride 117 now 128, CO2 5. BUN 60 7 repeat 43. Creatinine 6.6 to repeat 3.81. Troponin 0.049. proBNP 36,500. Calcium 5.3. Influenza A, influenza B, RSV, COVID-19 not detected. Home cardiac medications: Amlodipine 5 mg daily, lisinopril 30 mg daily Echocardiogram reveals EF 40 to 45%. Small circumferential pericardial effusion. 10/20 patient seen and examined. Patient remains in ICU. He is undergoing hemodialysis with 2.5 L goal output today. Blood pressures mainly in the 150s to 160s over 1 rate in the 110 range. Amlodipine 10 mg daily was added yesterday as well as hydralazine 3 times a day. 10/21 Patient has been transferred to the [facility] floor. He had a permanent dialysis catheter placed this morning by Dr. Odom. He is currently on IV Lasix 60 mg every 8 hours. Blood pressure 146/66, heart rate 78, pulse ox 97% on 4 L nasal cannula. Repeat blood work reveals WBC 12.9, hemoglobin 8.7, platelet count 135. Chemistry not available at the time of this dictation. 10/22 Patient is scheduled for hemodialysis this morning. He had permanent dialysis catheter placed yesterday. Repeat blood work is not available at the time of this dictation. Yesterday's chemistry revealed sodium 134, potassium 4.4, BUN 44 and creatinine 3.3. Patient has had improvement of his kidney function but low urine output. He denies having any chest pain. He states he wants to go ho me soon. Blood pressure 124/54, heart rate 63, afebrile, pulse ox 97% on 4 L nasal cannula. 10/23 Blood pressure 116/47, heart rate 62, afebrile, pulse ox 97% on 4 L nasal cannula. No laboratory reports are available at the time of this dictation. Patient underwent hemodialysis yesterday. Patient is requesting to go home. OP HD to be arranged. He complains that he can not sleep in the hospital. Physical examination: Gen: This is a frail cachectic appearing 87-year-old male VS: reviewed LUNGS: Decreased air exchange bilaterally. No intercostal retractions. HEART: Regular rate and rhythm. Systolic murmur. ABDOMEN: Soft No tenderness. EXTREMITIES: No pedal edema. No calf tenderness. NEUROLOGICAL: Patient is awake, alert and oriented x3. Assessment: Acute hypoxic and hypercapnic respiratory failure secondary to acute on chronic systolic heart failure Acute kidney injury on HD Metabolic acidosis Elevated troponin secondary to acute kidney injury Cardiomyopathy of unclear etiology Thrombocytopenia and anemia COPD Plan: Continue patient on amlodipine 10 mg daily, aspirin 81 mg daily, atorvastatin 40 mg at bedtime, Bumex 1 mg daily, hydralazine 50 mg 3 times daily, Imdur 30 mg daily, Lopressor 12.5 mg twice daily Hemodialysis per nephrology No MARC inhibitor or ARB given due to kidney injury Ideally SGLT 2 inhibitor will be considered at some point Appears to slowly be improving on dialysis. Further recommendations to follow. Given age and multiple medical problems likely defer ischemic workup unless having more angina type symptoms Patient is cleared for discharge from cardiology once all the arrangements are completed. Cardiology will sign off this case and follow on an as-needed basis. Please reconsult for any new concerns. Patient may follow-up in the office in one to 2 weeks. Nurse practitioner note has been reviewed, I agree with documented findings and plan of care. Patient was seen and examined. Objective - Vital Signs Vital signs: Vital Signs Temp 98.4 F 10/24/23 01:50 Pulse 62 10/24/23 07:50 Resp 18 10/24/23 07:50 BP 116/47 10/24/23 01:50 Pulse Ox 97 10/24/23 01:50 FiO2 40 10/19/23 04:00 Intake & Output 10/23/23 10/24/23 10/24/23 18:59 06:59 18:59 Intake Total 500 Output Total 1500 150 Balance -1000 -150 Intake: Hemodialysis 500 Output: Urine 150 Hemodialysis 1500 Other: Voiding Method Urinal Urinal Urinal # Voids 0 1 - Labs CBC & Chem 7: 10/22/23 06:29 10/22/23 06:29 Labs: Abnormal Lab Results - Last 24 Hours (Table) 10/22/23 10/23/23 10/23/23 Range/Units 06:29 12:13 16:53 POC Glucose (mg/dL) 141 H 317 H (70-110) mg/dL Vitamin D 25-Hydroxy 9.5 L (30.0-100.0) ng/mL 10/23/23 10/24/23 Range/Units 20:18 05:58 POC Glucose (mg/dL) 278 H 135 H (70-110) mg/dL Vitamin D 25-Hydroxy (30.0-100.0) ng/mL
--- NOTE | 2023-10-24 11:34 | P.PN ---
Subjective Progress Note Date: 10/24/23 Patient is an 87-year-old male with past medical history significant for COPD, chronic hypoxemic respiratory failure, hypertension, and kidney stones. He is quite upset to be in the hospital at this time, and he wants to go home. He reportedly lives by himself, and a neighbor had called for a wellbeing check yesterday evening. When EMS arrived, he was found to be hypoxic with an SpO2 of in the low 80s on his baseline 3 L/min nasal cannula. EMS then brought the patient to the emergency department. Patient was found to be in acute renal failure and severely hyperkalemic. BMP: Sodium 140, potassium 8.1, chloride 117, serum bicarb 12, BUN 67, creatinine 6.62, glucose 109. Lactic acid 1.1. Magnes ium 2.5. Troponin 0.049. NT proBNP 36,500. CBC: WBC count 6.2, hemoglobin 8.8, hematocrit 30.6, platelets 141. Chest x-ray demonstrates cardiomegaly with pulmonary vascular congestion, small bilateral pleural effusions, and interstitial edema. Since his initial ER presentation, his oxygen demands increased and currently on 8 L/min high flow nasal cannula. He is alert and fully oriented, and currently refusing treatment. He is actually telling me that he is going to call a cab and leave this facility. He has not received any correction for his critically elevated potassium yet. ECG showing normal sinus rhythm with first-degree AV block and hyperacute T waves. I have repeatedly explained how critical his situation is, that if he were to leave at this time, he would likely had a cardiac arrest. He called his son, and I did speak to his son on the telephone about his father's critical condition. He is going to come up to the hospital and see his father. His son is encouraging him to stay in the hospital over the phone. After this, the patient has been more receptive to this interview and my questions. He states that he had kidney stones approximately 3 years ago. Denies NSAID use. Denies any trouble urinating such as dysuria, urinary frequency, hematuria, flank pain. Denies having an enlarged prostate. [id number]-heog bladder scan reveals a minimal amount of urine, 140 cc. Patient is refusing urinary catheter. Nephrology has been consulted for management of his renal failure and hyperkalemia. As far as the patient's respiratory status. He states that has been getting worse over the last couple days, which he attributes to the heat outside. Denies any infectious-like symptoms such as fever, rhinorrhea, sore throat, cough, sputum production, hemoptysis. Denies any nausea or vomiting, diarrhea, or abdominal pain. He has been traveling by car [id number] to [place] over the last several weeks. Denies chest pain. Denies lower extremity swelling. He is audibly wheezing on examination. Does use inhalers and nebulizer at home, but is unsure of medications or doses. Reportedly a current smoker, approximately 1/2 to 1 ppd. Overall prognosis is guarded. Patient was reevaluated today on 10/16/2023, patient remains in the ICU, no significant improvement noted in his renal function, patient is making urine and responding to Lasix, however his chest x-ray is worsening, and I recommended that we start the patient on Lasix drip today. Nephrology is considering renal replacement therapy on this patient, however I believe the patient is going to be extremely reluctant and he will likely refuse it because I touch bases with him earlier regarding this, and the patient wants to be discharged home. Again it is a very difficult situation, patient is not very compliant, and he is resisting all kinds of treatment. Ultrasound of the kidneys showed no evidence of hydronephrosis. His metabolic acidosis did improve with bicarb drip, and this has been placed on hold for today. His hyperkalemia did improve with treatment. Blood pressure is also under control. Again his chest x-ray is showing worsening of his pulmonary edema. Labs today showed relatively normal WBC count, hemoglobin is 7.5. Platelets are 153. Potassium this morning is 5.0. It was 6.0 earlier. Patient remains on 15 L high flow nasal cannula and O2 saturation 97%. Hemodynamically patient is doing well blood pressure is 123/55, not requiring any pressors. Patient was reevaluated today on 10/17/2023, patient remains in the ICU, remains on Lasix drip, still requiring 15 L high flow nasal cannula, and had to be placed at night on BiPAP 04/01/60%, his Lasix drip is 10 mg an hour. Creatinine is a bit down to 5.77 today, patient was seen by nephrology, and seriously considering renal replacement therapy. In 24 hours, patient had about 1 L negative fluid balance. WBC count is 11.2 hemoglobin 7.4 electrolytes are normal BUN is 79 creatinine 5.77 chest x-ray continues to show pulmonary edema, slightly better compared to the chest x-ray he had on admission Was evaluated today on 10/18/2023, remains in the ICU, last night the patient became extremely agitated, had to be placed on Precedex which is now 0.4 mcg/kg/h. Remains on Lasix at 10 mg/h, putting out urine in the range of 60 to 80 cc/h. Chest x-ray is showing some improvement in his pulmonary edema. However considering the fact that his urine output is not as significant as it should be, I am recommending that we increase the Lasix to 20 mg/h drip. In the meantime patient had to be placed on BiPAP last night 12//40%. Nephrology was considering renal replacement therapy, and that is still being considered. Patient's clinical status remains marginal at best, I have a feeling that the patient may eventually require intubation mechanical ventilation, however we will try to manage for now conservatively unless condition gets any worse. WBC count today is 7 hemoglobin 7.4 potassium is 5.1 BUN is 94 creatinine is up again to 6.31 echocardiogram on this patient showed ejection fraction of 40 to 45% Progress note dated October 19, 2023. The patient is seen today in room 259. He is actually undergoing hemodialysis. Hemodialysis started yesterday. 800 cc was removed yesterday, and 2 L will be r emoved today, should the blood pressure remained stable. The patient was admitted to the hospital on October 14, with a diagnosis of acute kidney injury, and hyperkalemia, as well as COPD, and CHF. The patient was on 15 L high flow nasal O2, which has been turned down to 13 L. He is getting saline at KVO. He did use BiPAP throughout the night, with settings of 12/6, and 40%. Current laboratory data includes a white count 6.6, hemoglobin 7.1, hematocrit 23.6, and platelet count of 122,000. Sodium 133, potassium 4.6, chloride 99, CO2 28, BUN 72, creatinine 4.19. Glucose is 332. Calcium is 7.8. Chest x-ray shows some interstitial changes, consistent with interstitial edema and pulmonary vascular congestion. Progress note dated October 20, 2023. The patient is seen today in room 259. Clinically, the patient appears to be relatively stable. He is anxious to be discharged. He is on 6 L nasal cannula. He is getting saline at 10 cc an hour. He had hemodialysis yesterday, 2 L of fluid was removed. Not sure about hemodialysis today. The patient had an uneventful night according to the nurses. Current labs include a white count 8.6, hemoglobin 7.8, hematocrit 25.7, and platelet count 148,000. Sodium 134, potassium 4, chlorides 100, CO2 26, BUN 62, creatinine 3.52. Glucose was 195. Calcium 7.7. Chest x-ray is consistent with increasing pulmonary vascular congestion. Progress note dated October 21, 2023. The patient is seen today in room 259. 87-year-old male who is undergoing hemodialysis today. Clinically, the patient appears stable. He is on 3 L of oxygen by nasal cannula. The patient did have hemodialysis yesterday apparently. The plan today is to remove 2 L of fluid. The patient is not receiving any IV fluids. He is not having any respiratory distress. Current labs include a white count 8.3, hemoglobin 8.3, hematocrit 27.2, with a normal platelet count. Sodium 133, potassium 3.9, chlorides 101, CO2 23, BUN 53, and creatinine 3.17. Glucose is 191. Chest x-ray is largely unchanged. Progress note dated October 22, 2023. The patient was seen yesterday in the intensive care unit. Today, the patient is seen in room 453. The patient continues on oxygen, by nasal cannula at 4 L. He is not receiving any IV fluids. The patient's Solu-Medrol, is changed to prednisone, 30 mg a day. The patient appears a bit agitated today. Current labs include a white count of 12.9, hemoglobin 8.7, hematocrit 26.4, and platelet count 135,000. Sodium 134, potassium 4.4, chlorides 98, CO2 25, BUN 44, creatinine 3.3. Glucose is 247. Calcium is 7.8. The patient is seen today October 23, 2023 in follow-up on the regular medical floor. He is currently resting comfortably in bed. Awake and alert in no acute distress. Receiving hemodialysis today with a goal of -1.5 L. He is maintaining good O2 saturations in the 90s on 4 L/min per nasal cannula. Glucose 141. He remains on DuoNeb inhalations, Symbicort, prednisone taper. The patient is seen today October 24, 2023 on the regular medical floor. He is currently resting comfortably in bed. Awake and alert in no acute distress. Maintaining O2 saturations in the 90s on 4 L/min per nasal cannula. No IV fluids. Next hemodialysis scheduled for Thursday. He is continued on Bumex. He is currently in a -1.1 liter balance. Remains on DuoNeb inhalations, Symbicort, prednisone taper. Objective - Vital Signs Vital signs: Vital Signs Temp 98.3 F 10/24/23 06:52 Pulse 62 10/24/23 07:50 Resp 18 10/24/23 07:50 BP 138/61 10/24/23 06:52 Pulse Ox 100 10/24/23 08:58 FiO2 40 10/19/23 04:00 Intake & Output 10/23/23 10/24/23 10/24/23 18:59 06:59 18:59 Intake Total 500 Output Total 1500 150 Balance -1000 -150 Intake: Hemodialysis 500 Output: Urine 150 Hemodialysis 1500 Other: Voiding Method Urinal Urinal Urinal # Voids 0 1 - Exam GENERAL EXAM: Alert, frail 87-year-old male, resting comfortably in bed, on 4 L nasal cannula, in no apparent distress. HEAD: Normocephalic. EYES: Normal reaction of pupils, equal size. NOSE: Clear with pink turbinates. THROAT: No erythema or exudates. NECK: No masses, no JVD. Right jugular dialysis catheter in place. CHEST: No chest wall deformity. LUNGS: Equal air entry with few scattered rhonchi. CVS: S1 and S2 normal with no audible murmur, regular rhythm. ABDOMEN: No hepatosplenomegaly, normal bowel sounds, no guarding or rigidity. SPINE: No scoliosis or deformity SKIN: No rashes CENTRAL NERVOUS SYSTEM: No focal deficits, tone is normal in all 4 extremities. EXTREMITIES: There is no peripheral edema. No clubbing, no cyanosis. Peripheral pulses are intact. - Labs CBC & Chem 7: 10/22/23 06:29 10/22/23 06:29 Labs: Abnormal Lab Results - Last 24 Hours (Table) 10/22/23 10/23/23 10/23/23 Range/Units 06:29 12:13 16:53 POC Glucose (mg/dL) 141 H 317 H (70-110) mg/dL Vitamin D 25-Hydroxy 9.5 L (30.0-100.0) ng/mL 10/23/23 10/24/23 Range/Units 20:18 05:58 POC Glucose (mg/dL) 278 H 135 H (70-110) mg/dL Vitamin D 25-Hydroxy (30.0-100.0) ng/mL Assessment and Plan Assessment: Acute on chronic hypoxemic respiratory failure secondary to fluid overload, and acute COPD exacerbation Acute exacerbation of chronic systolic congestive heart failure Acute kidney injury/failure, required initiation of hemodialysis on October 18, 2023 Acute severe non-anion gap metabolic acidosis, recovered Severe hyperkalemia, recovered History of chronic obstructive pulmonary disease Chronic hypoxemic respiratory failure, on home O2 between 2 to 3 L/min Current and ongoing tobacco dependence Anemia of chronic disease History of kidney stones Plan: The patient was seen and evaluated Labs and medications reviewed Stable and on 4 L nasal cannula Titrate down the FiO2 as tolerated Continue bronchodilators and prednisone taper Continue diuretics Plan is for hemodialysis Thursday Discharge planning in place We will continue to follow I have personally seen and examined the patient, performed the documentation and the assessment and plan as written. Number of minutes spent on the visit: 10.
[2023-10-24 11:42] LABS: Glucose,Whole Blood 355 mg/dL (70-110)
[2023-10-24 15:25] LABS: Glucose,Whole Blood 196 mg/dL (70-110)
[2023-10-24 16:39] LABS: Glucose,Whole Blood 180 mg/dL (70-110)
--- NOTE | 2023-10-24 20:36 | P.PN ---
Subjective patient is a 87-year-old gentleman past medical history significant for COPD, hypertension was brought to the ER for shortness of breath. Patient had a wellness check done on him after neighbors were concerned for his safety. When EMS arrived at this point patient was found to be short of breath. Patient history of COPD and currently uses 3 L of oxygen. Patient stated that he was short of breath for the last few days. Patient also complaining of wheezing. There was no complaint of fever or chills. There is no complaint of nausea, or abdominal pain. Patient denies any recent falls. Patient was initially very resistant to the idea of coming to the hospital. EMS brought patient to [facility] Initial lab work done in the ER showed W6.2, hemoglobin 8.8, platelet count 141, sodium 148, potassium 8.1, BUN 67, creatinine 6.62, troponin 0.049, proBNP 03078 Influenza A not detected Influenza B not detected RSV not detected COVID-19 not detected EKG done in the ER showed heart rate of75 , no ST segment elevation or depression seen, no T-wave inversions seen. Chest x-ray done in the ER showed small bilateral pleural effusion, pulm vascular congestion, cardiomegaly Because of hyperkalemia and acute kidney injury, patient was admitted to ICU under internal medicine service 10/15. Patient seen and examined. Currently on 15 L of oxygen. Blood work done this morning showed WBC 9.6, hemoglobin 7.5, sodium 137, potassium 6, BUN 78, creatinine 6.14. States breathing is very bad. Denies any cough. Patient started on Lasix drip 10/16. Patient seen and examined. Patient continues to be very noncompliant, keeps saying that he wants to go home. Currently on 15 L of oxygen. Blood work done this morning showed WBC 11.2, hemoglobin 7.4 sodium 136, potassium 4.7, BUN 79, creatinine 5.77. 10/17. Patient seen and examined. Currently on BiPAP. Patient is lethargic. Family at the bedside, all questions answered. Labs done this morning showed sodium 133, potassium 5.1, BUN 94, creatinine 6.31. Nephrology had recommended to start patient on dialysis, patient family agreeable 10/19/23 Patient lying in bed, mildly tachypneic He is fully awake and oriented Patient refused to continue the encounter and refused to answer further questions Chart and medical records were reviewed 10/20/2023 Patient awake alert at baseline Still have limited air entry on both lungs Abdomen soft No leg swelling He remains on IV Lasix 60 mg 3 times per day and IV Solu-Medrol 40 mg His oxygen requirement coming down from 15 L down to 7 L 10/21/2023 Patient looks mildly confused at baseline. He follows commands. He is less tachypneic and his oxygen requirement down to 4 L/day He remains on IV Lasix 60 mg 3 times a day He has acute kidney injury on admission and is getting hemodialysis per nephrology team No chest pain No other new complaint 10/22/2023 He is awake, breathing is improving He is currently saturating 97% on 4 L No chest pain He will get hemodialysis tomorrow Possible discharge in 24 to 48 hours if he keeps improving 10/23/2023 Patient looks tired and weak today, but awake and alert Breathing is okay and he is currently on 4 L oxygen and saturation more than 25% He is getting hemodialysis today Patient is declining to go to rehab and request to go home with home care 10/24/2023 Patient today has good appetite He is somewhat more energetic and more interactive Breathing is stable on prednisone 30 mg daily Patient may be discharged home to home, patient was recommended to have subacute rehab however he declines. Patient has capacity to make medical decision Objective - Vital Signs Vital signs: Vital Signs Temp 98.2 F 10/24/23 15:07 Pulse 57 L 10/24/23 15:07 Resp 16 10/24/23 15:07 BP 144/45 10/24/23 15:07 Pulse Ox 96 10/24/23 15:07 FiO2 40 10/19/23 04:00 Intake & Output 10/24/23 10/24/23 10/25/23 06:59 18:59 06:59 Output Total 150 Balance -150 Output: Urine 150 Other: Voiding Method Urinal Urinal # Voids 1 0 - Exam GENERAL: The patient is alert and oriented x3, not in any acute distress. Well developed, well nourished. HEENT: Pupils are round and equally reacting to light. EOMI. No scleral icterus. No conjunctival pallor. Normocephalic, atraumatic. No pharyngeal erythema. No thyromegaly. CARDIOVASCULAR: S1 and S2 present. No murmurs, rubs, or gallops. PULMONARY: Chest is clear to auscultation, no wheezing , no crackles. ABDOMEN: Soft, nontender, nondistended, normoactive bowel sounds. No palpable organomegaly. MUSCULOSKELETAL: No joint swelling or deformity. EXTREMITIES: No cyanosis, clubbing, or pedal edema. NEUROLOGICAL: Gross neurological examination did not reveal any focal deficits. SKIN: No rashes. no petechiae. - Labs CBC & Chem 7: 10/22/23 06:10/22/23 06:29 Labs: Abnormal Lab Results - Last 24 Hours (Table) 10/22/23 10/24/23 10/24/23 Range/Units 06: 05:58 11:40 POC Glucose (mg/dL) 135 H 355 H (70-110) mg/dL Vitamin D 25-Hydroxy 9.5 L (30.0-100.0) ng/mL 10/24/23 10/24/23 Range/Units 15:24 16:38 POC Glucose (mg/dL) 196 H 180 H (70-110) mg/dL Vitamin D 25-Hydroxy (30.0-100.0) ng/mL Assessment and Plan Assessment: Acute on chronic hypoxemic respiratory failure acute COPD exacerbation. Acute kidney injury Acute on chronic systolic CHF, echocardiogram showing ejection fraction of 40 to 45% Acute severe non-anion gap metabolic acidosis, secondary to above Severe hyperkalemia Elevated troponins, in the setting of acute renal failure Anemia Current ongoing tobacco dependence History of kidney stones Plan: Patient remains to be monitored in the ICU Continue with IV Lasix 60 mg Continue with IV Solu-Medrol 40 mg Continue with bronchodilator Pulmonary and nephrology consults are following closely Continue with oxygen Labs and medication were reviewed.. Continue same treatment. Continue with symptomatic treatment. Resume home medication. Monitor labs and vitals. DVT and GI prophylaxis. Further recommendations as per clinical course of the patient DVT prophylaxis: Mechanical GI Prophylaxis: px Prognosis is guarded
[2023-10-24 21:36] LABS: Glucose,Whole Blood 223 mg/dL (70-110)
[2023-10-25 06:18] LABS: Glucose,Whole Blood 146 mg/dL (70-110)
--- NOTE | 2023-10-25 10:22 | P.PN ---
Subjective Progress Note Date: 10/25/23 Patient is an 87-year-old male with past medical history significant for COPD, chronic hypoxemic respiratory failure, hypertension, and kidney stones. He is quite upset to be in the hospital at this time, and he wants to go home. He reportedly lives by himself, and a neighbor had called for a wellbeing check yesterday evening. When EMS arrived, he was found to be hypoxic with an SpO2 of in the low 80s on his baseline 3 L/min nasal cannula. EMS then brought the patient to the emergency department. Patient was found to be in acute renal failure and severely hyperkalemic. BMP: Sodium 140, potassium 8.1, chloride 117, serum bicarb 12, BUN 67, creatinine 6.62, glucose 109. Lactic acid 1.1. Magnes ium 2.5. Troponin 0.049. NT proBNP 36,500. CBC: WBC count 6.2, hemoglobin 8.8, hematocrit 30.6, platelets 141. Chest x-ray demonstrates cardiomegaly with pulmonary vascular congestion, small bilateral pleural effusions, and interstitial edema. Since his initial ER presentation, his oxygen demands increased and currently on 8 L/min high flow nasal cannula. He is alert and fully oriented, and currently refusing treatment. He is actually telling me that he is going to call a cab and leave this facility. He has not received any correction for his critically elevated potassium yet. ECG showing normal sinus rhythm with first-degree AV block and hyperacute T waves. I have repeatedly explained how critical his situation is, that if he were to leave at this time, he would likely had a cardiac arrest. He called his son, and I did speak to his son on the telephone about his father's critical condition. He is going to come up to the hospital and see his father. His son is encouraging him to stay in the hospital over the phone. After this, the patient has been more receptive to this interview and my questions. He states that he had kidney stones approximately 3 years ago. Denies NSAID use. Denies any trouble urinating such as dysuria, urinary frequency, hematuria, flank pain. Denies having an enlarged prostate. [id number]-siib bladder scan reveals a minimal amount of urine, 140 cc. Patient is refusing urinary catheter. Nephrology has been consulted for management of his renal failure and hyperkalemia. As far as the patient's respiratory status. He states that has been getting worse over the last couple days, which he attributes to the heat outside. Denies any infectious-like symptoms such as fever, rhinorrhea, sore throat, cough, sputum production, hemoptysis. Denies any nausea or vomiting, diarrhea, or abdominal pain. He has been traveling by car [id number] to [place] over the last several weeks. Denies chest pain. Denies lower extremity swelling. He is audibly wheezing on examination. Does use inhalers and nebulizer at home, but is unsure of medications or doses. Reportedly a current smoker, approximately 1/2 to 1 ppd. Overall prognosis is guarded. Patient was reevaluated today on 10/16/2023, patient remains in the ICU, no significant improvement noted in his renal function, patient is making urine and responding to Lasix, however his chest x-ray is worsening, and I recommended that we start the patient on Lasix drip today. Nephrology is considering renal replacement therapy on this patient, however I believe the patient is going to be extremely reluctant and he will likely refuse it because I touch bases with him earlier regarding this, and the patient wants to be discharged home. Again it is a very difficult situation, patient is not very compliant, and he is resisting all kinds of treatment. Ultrasound of the kidneys showed no evidence of hydronephrosis. His metabolic acidosis did improve with bicarb drip, and this has been placed on hold for today. His hyperkalemia did improve with treatment. Blood pressure is also under control. Again his chest x-ray is showing worsening of his pulmonary edema. Labs today showed relatively normal WBC count, hemoglobin is 7.5. Platelets are 153. Potassium this morning is 5.0. It was 6.0 earlier. Patient remains on 15 L high flow nasal cannula and O2 saturation 97%. Hemodynamically patient is doing well blood pressure is 123/55, not requiring any pressors. Patient was reevaluated today on 10/17/2023, patient remains in the ICU, remains on Lasix drip, still requiring 15 L high flow nasal cannula, and had to be placed at night on BiPAP 04/01/60%, his Lasix drip is 10 mg an hour. Creatinine is a bit down to 5.77 today, patient was seen by nephrology, and seriously considering renal replacement therapy. In 24 hours, patient had about 1 L negative fluid balance. WBC count is 11.2 hemoglobin 7.4 electrolytes are normal BUN is 79 creatinine 5.77 chest x-ray continues to show pulmonary edema, slightly better compared to the chest x-ray he had on admission Was evaluated today on 10/18/2023, remains in the ICU, last night the patient became extremely agitated, had to be placed on Precedex which is now 0.4 mcg/kg/h. Remains on Lasix at 10 mg/h, putting out urine in the range of 60 to 80 cc/h. Chest x-ray is showing some improvement in his pulmonary edema. However considering the fact that his urine output is not as significant as it should be, I am recommending that we increase the Lasix to 20 mg/h drip. In the meantime patient had to be placed on BiPAP last night 12//40%. Nephrology was considering renal replacement therapy, and that is still being considered. Patient's clinical status remains marginal at best, I have a feeling that the patient may eventually require intubation mechanical ventilation, however we will try to manage for now conservatively unless condition gets any worse. WBC count today is 7 hemoglobin 7.4 potassium is 5.1 BUN is 94 creatinine is up again to 6.31 echocardiogram on this patient showed ejection fraction of 40 to 45% Progress note dated October 19, 2023. The patient is seen today in room 259. He is actually undergoing hemodialysis. Hemodialysis started yesterday. 800 cc was removed yesterday, and 2 L will be r emoved today, should the blood pressure remained stable. The patient was admitted to the hospital on October 14, with a diagnosis of acute kidney injury, and hyperkalemia, as well as COPD, and CHF. The patient was on 15 L high flow nasal O2, which has been turned down to 13 L. He is getting saline at KVO. He did use BiPAP throughout the night, with settings of 12/6, and 40%. Current laboratory data includes a white count 6.6, hemoglobin 7.1, hematocrit 23.6, and platelet count of 122,000. Sodium 133, potassium 4.6, chloride 99, CO2 28, BUN 72, creatinine 4.19. Glucose is 332. Calcium is 7.8. Chest x-ray shows some interstitial changes, consistent with interstitial edema and pulmonary vascular congestion. Progress note dated October 20, 2023. The patient is seen today in room 259. Clinically, the patient appears to be relatively stable. He is anxious to be discharged. He is on 6 L nasal cannula. He is getting saline at 10 cc an hour. He had hemodialysis yesterday, 2 L of fluid was removed. Not sure about hemodialysis today. The patient had an uneventful night according to the nurses. Current labs include a white count 8.6, hemoglobin 7.8, hematocrit 25.7, and platelet count 148,000. Sodium 134, potassium 4, chlorides 100, CO2 26, BUN 62, creatinine 3.52. Glucose was 195. Calcium 7.7. Chest x-ray is consistent with increasing pulmonary vascular congestion. Progress note dated October 21, 2023. The patient is seen today in room 259. 87-year-old male who is undergoing hemodialysis today. Clinically, the patient appears stable. He is on 3 L of oxygen by nasal cannula. The patient did have hemodialysis yesterday apparently. The plan today is to remove 2 L of fluid. The patient is not receiving any IV fluids. He is not having any respiratory distress. Current labs include a white count 8.3, hemoglobin 8.3, hematocrit 27.2, with a normal platelet count. Sodium 133, potassium 3.9, chlorides 101, CO2 23, BUN 53, and creatinine 3.17. Glucose is 191. Chest x-ray is largely unchanged. Progress note dated October 22, 2023. The patient was seen yesterday in the intensive care unit. Today, the patient is seen in room 453. The patient continues on oxygen, by nasal cannula at 4 L. He is not receiving any IV fluids. The patient's Solu-Medrol, is changed to prednisone, 30 mg a day. The patient appears a bit agitated today. Current labs include a white count of 12.9, hemoglobin 8.7, hematocrit 26.4, and platelet count 135,000. Sodium 134, potassium 4.4, chlorides 98, CO2 25, BUN 44, creatinine 3.3. Glucose is 247. Calcium is 7.8. The patient is seen today October 23, 2023 in follow-up on the regular medical floor. He is currently resting comfortably in bed. Awake and alert in no acute distress. Receiving hemodialysis today with a goal of -1.5 L. He is maintaining good O2 saturations in the 90s on 4 L/min per nasal cannula. Glucose 141. He remains on DuoNeb inhalations, Symbicort, prednisone taper. The patient is seen today October 24, 2023 on the regular medical floor. He is currently resting comfortably in bed. Awake and alert in no acute distress. Maintaining O2 saturations in the 90s on 4 L/min per nasal cannula. No IV fluids. Next hemodialysis scheduled for Thursday. He is continued on Bumex. He is currently in a -1.1 liter balance. Remains on DuoNeb inhalations, Symbicort, prednisone taper. The patient is seen today October 25, 2023 in follow-up on the regular medical floor. He is resting comfortably in bed. Awake and alert in no acute distress. He denies any worsening shortness of breath, cough or congestion. He is maintaining good O2 saturations in the 90s on 4 L/min per nasal cannula. Continue on DuoNeb inhalations, Symbicort, prednisone taper. Remains on oral diuretics. Glucose 146. Objective - Vital Signs Vital signs: Vital Signs Temp 98.5 F 10/25/23 07:23 Pulse 70 10/25/23 07:40 Resp 18 10/25/23 07:40 BP 119/52 10/25/23 07:23 Pulse Ox 95 10/25/23 08:53 FiO2 40 10/19/23 04:00 Intake & Output 10/24/23 10/25/23 10/25/23 18:59 06:59 18:59 Other: Voiding Method Urinal Urinal Urinal # Voids 0 - Exam GENERAL EXAM: Alert, frail 87-year-old male, on 4 L nasal cannula, in no apparent distress. HEAD: Normocephalic. EYES: Normal reaction of pupils, equal size. NOSE: Clear with pink turbinates. THROAT: No erythema or exudates. NECK: No masses, no JVD. Right jugular dialysis catheter in place. CHEST: No chest wall deformity. LUNGS: Equal air entry with few scattered rhonchi. CVS: S1 and S2 normal with no audible murmur, regular rhythm. ABDOMEN: No hepatosplenomegaly, normal bowel sounds, no guarding or rigidity. SPINE: No scoliosis or deformity SKIN: No rashes CENTRAL NERVOUS SYSTEM: No focal deficits, tone is normal in all 4 extremities. EXTREMITIES: There is no peripheral edema. No clubbing, no cyanosis. Peripheral pulses are intact. - Labs CBC & Chem 7: 10/22/23 06:10/22/23 06:29 Labs: Abnormal Lab Results - Last 24 Hours (Table) 10/24/23 10/24/23 10/24/23 Range/Units 11:40 15:24 16:38 POC Glucose (mg/dL) 355 H 196 H 180 H (70-110) mg/dL 10/24/23 10/25/23 Range/Units 21:33 06:16 POC Glucose (mg/dL) 223 H 146 H (70-110) mg/dL Assessment and Plan Assessment: Acute on chronic hypoxemic respiratory failure secondary to fluid overload, and acute COPD exacerbation Acute exacerbation of chronic systolic congestive heart failure Acute kidney injury/failure, required initiation of hemodialysis on October 18, 2023 Acute severe non-anion gap metabolic acidosis, recovered Severe hyperkalemia, recovered History of chronic obstructive pulmonary disease Chronic hypoxemic respiratory failure, on home O2 between 2 to 3 L/min Current and ongoing tobacco dependence Anemia of chronic disease History of kidney stones Plan: The patient was seen and evaluated Medications reviewed Stable and on 4 L nasal cannula Titrate down the FiO2 as tolerated Continue bronchodilators and prednisone taper Continue diuretics Plan is for hemodialysis Thursday We will continue to follow I have personally seen and examined the patient, performed the documentation and the assessment and plan as written. Number of minutes spent on the visit: 10.
--- NOTE | 2023-10-25 10:44 | P.PN ---
Subjective Patient is seen in follow-up for acute kidney injury on chronic kidney disease. Started on hemodialysis October 18, 2023. Has permacath. Denies chest pain or shortness of breath. No vomiting or diarrhea. Hemodynamically stable. No active complaints at this time. Vital signs are stable. General: No acute distress. HEENT: Head exam is unremarkable. On nasal cannula. LUNGS: Scattered rhonchi. HEART: Rate and Rhythm are regular. ABDOMEN: Nontender. EXTREMITITES: No edema. Objective - Vital Signs Vital signs: Vital Signs Temp 98.5 F 10/25/23 07:23 Pulse 70 10/25/23 07:40 Resp 18 10/25/23 07:40 BP 119/52 10/25/23 07:23 Pulse Ox 95 10/25/23 08:53 FiO2 40 10/19/23 04:00 Intake & Output 10/24/23 10/25/23 10/25/23 18:59 06:59 18:59 Other: Voiding Method Urinal Urinal Urinal # Voids 0 - Labs CBC & Chem 7: 10/22/23 06:29 10/22/23 06:29 Labs: Abnormal Lab Results - Last 24 Hours (Table) 10/24/23 10/24/23 10/24/23 Range/Units 11:40 15:24 16:38 POC Glucose (mg/dL) 355 H 196 H 180 H (70-110) mg/dL 10/24/23 10/25/23 Range/Units 21:33 06:16 POC Glucose (mg/dL) 223 H 146 H (70-110) mg/dL Assessment and Plan Plan: Assessment: 1. Acute kidney injury secondary to ATN. Creatinine over 6 on admission with no improvement. Subsequently started on hemodialysis October 18, 2023. Creatinine in November 2014 was 1.9. No hydronephrosis noted on kidney ultrasound. Left kidney atrophic. 2. Metabolic acidosis secondary to acute kidney injury and IV fluids. Improved with bicarb drip.. 3. Hyperkalemia secondary to acute kidney injury, acidosis and lisinopril. Improved with medical management and renal replacement therapy. 4. Hypocalcemia secondary to acute kidney injury. Replaced. Improved. 5. hypertension with chronic kidney disease. Controlled. 6. Acute hypoxic respiratory failure. On nasal cannula. 7. Volume overload. Improved with ultrafiltration. 8. Acute on chronic systolic CHF with ejection fraction of 40 to 45% with mild to moderate tricuspid regurgitation and moderate mitral regurgitation. 9. Anemia. Likely component of chronic kidney disease. On Aranesp. 10. Chronic kidney disease stage IV with creatinine 1.9 in November 2014. Plan: Hemodialysis Thursday. Maintain Bumex. Encouraged oral intake. Follow-up phosphorus level. manager architectural to set up outpatient hemodialysis.
[2023-10-25 11:11] LABS: Glucose,Whole Blood 190 mg/dL (70-110)
[2023-10-25 16:25] LABS: Glucose,Whole Blood 227 mg/dL (70-110)
[2023-10-25] MEDS: CHOLECALCIFEROL 25 MCG (1000 IU) TABLET PO SCH (17:10)
--- NOTE | 2023-10-25 19:45 | P.PN ---
Subjective patient is a 87-year-old gentleman past medical history significant for COPD, hypertension was brought to the ER for shortness of breath. Patient had a wellness check done on him after neighbors were concerned for his safety. When EMS arrived at this point patient was found to be short of breath. Patient history of COPD and currently uses 3 L of oxygen. Patient stated that he was short of breath for the last few days. Patient also complaining of wheezing. There was no complaint of fever or chills. There is no complaint of nausea, or abdominal pain. Patient denies any recent falls. Patient was initially very resistant to the idea of coming to the hospital. EMS brought patient to [facility] Initial lab work done in the ER showed W6.2, hemoglobin 8.8, platelet count 141, sodium 148, potassium 8.1, BUN 67, creatinine 6.62, troponin 0.049, proBNP 41056 Influenza A not detected Influenza B not detected RSV not detected COVID-19 not detected EKG done in the ER showed heart rate of75 , no ST segment elevation or depression seen, no T-wave inversions seen. Chest x-ray done in the ER showed small bilateral pleural effusion, pulm vascular congestion, cardiomegaly Because of hyperkalemia and acute kidney injury, patient was admitted to ICU under internal medicine service 10/15. Patient seen and examined. Currently on 15 L of oxygen. Blood work done this morning showed WBC 9.6, hemoglobin 7.5, sodium 137, potassium 6, BUN 78, creatinine 6.14. States breathing is very bad. Denies any cough. Patient started on Lasix drip 10/16. Patient seen and examined. Patient continues to be very noncompliant, keeps saying that he wants to go home. Currently on 15 L of oxygen. Blood work done this morning showed WBC 11.2, hemoglobin 7.4 sodium 136, potassium 4.7, BUN 79, creatinine 5.77. 10/17. Patient seen and examined. Currently on BiPAP. Patient is lethargic. Family at the bedside, all questions answered. Labs done this morning showed sodium 133, potassium 5.1, BUN 94, creatinine 6.31. Nephrology had recommended to start patient on dialysis, patient family agreeable 10/19/23 Patient lying in bed, mildly tachypneic He is fully awake and oriented Patient refused to continue the encounter and refused to answer further questions Chart and medical records were reviewed 10/20/2023 Patient awake alert at baseline Still have limited air entry on both lungs Abdomen soft No leg swelling He remains on IV Lasix 60 mg 3 times per day and IV Solu-Medrol 40 mg His oxygen requirement coming down from 15 L down to 7 L 10/21/2023 Patient looks mildly confused at baseline. He follows commands. He is less tachypneic and his oxygen requirement down to 4 L/day He remains on IV Lasix 60 mg 3 times a day He has acute kidney injury on admission and is getting hemodialysis per nephrology team No chest pain No other new complaint 10/22/2023 He is awake, breathing is improving He is currently saturating 97% on 4 L No chest pain He will get hemodialysis tomorrow Possible discharge in 24 to 48 hours if he keeps improving 10/23/2023 Patient looks tired and weak today, but awake and alert Breathing is okay and he is currently on 4 L oxygen and saturation more than 25% He is getting hemodialysis today Patient is declining to go to rehab and request to go home with home care 10/24/2023 Patient today has good appetite He is somewhat more energetic and more interactive Breathing is stable on prednisone 30 mg daily Patient may be discharged home to home, patient was recommended to have subacute rehab however he declines. Patient has capacity to make medical decision 10/25/2023 Patient is awake and alert, breathing stabilized and patient cleared for discharge by pulmonary team Patient is very willing to go home, patient declines rehab, states also he has oxygen at home, son at bedside and he is agreeable with these and for his father to go home. However patient is a started as a new hemodialysis in the hospital and needs to find a new outpatient hemodialysis place prior to discharge, social service coordinator on the case and till now there is no final approval which could be possibly tomorrow. Objective - Vital Signs Vital signs: Vital Signs Temp 97.7 F 10/25/23 13:27 Pulse 57 L 10/25/23 13:27 Resp 16 10/25/23 13:27 BP 117/50 10/25/23 13:27 Pulse Ox 90 L 10/25/23 13:27 FiO2 40 10/19/23 04:00 Intake & Output 10/24/23 10/25/23 10/25/23 18:59 06:59 18:59 Other: Voiding Method Urinal Urinal Urinal # Voids 0 5 # Bowel Movements 1 - Exam GENERAL: The patient is alert and oriented x3, not in any acute distress. Well developed, well nourished. HEENT: Pupils are round and equally reacting to light. EOMI. No scleral icterus. No conjunctival pallor. Normocephalic, atraumatic. No pharyngeal erythema. No thyromegaly. CARDIOVASCULAR: S1 and S2 present. No murmurs, rubs, or gallops. PULMONARY: Chest is clear to auscultation, no wheezing , no crackles. ABDOMEN: Soft, nontender, nondistended, normoactive bowel sounds. No palpable organomegaly. MUSCULOSKELETAL: No joint swelling or deformity. EXTREMITIES: No cyanosis, clubbing, or pedal edema. NEUROLOGICAL: Gross neurological examination did not reveal any focal deficits. SKIN: No rashes. no petechiae. - Labs CBC & Chem 7: 10/22/23 06:29 10/22/23 06:29 Labs: Abnormal Lab Results - Last 24 Hours (Table) 10/24/23 10/25/23 10/25/23 Range/Units 21:33 06:16 11:10 POC Glucose (mg/dL) 223 H 146 H 190 H (70-110) mg/dL 10/25/23 Range/Units 16:23 POC Glucose (mg/dL) 227 H (70-110) mg/dL Assessment and Plan Assessment: Acute on chronic hypoxemic respiratory failure acute COPD exacerbation. Acute kidney injury Acute on chronic systolic CHF, echocardiogram showing ejection fraction of 40 to 45% Acute severe non-anion gap metabolic acidosis, secondary to above Severe hyperkalemia Elevated troponins, in the setting of acute renal failure Anemia Current ongoing tobacco dependence History of kidney stones Plan: Patient currently off steroids Pulmonary team cleared him for discharge Patient pending finding a new hemodialysis spot for home as an outpatient nephrology consults are following closely Continue with oxygen Labs and medication were reviewed.. Continue same treatment. Continue with symptomatic treatment. Resume home medication. Monitor labs and vitals. DVT and GI prophylaxis. Further recommendations as per clinical course of the patient DVT prophylaxis: Mechanical GI Prophylaxis: px Prognosis is guarded
[2023-10-25 20:25] LABS: Glucose,Whole Blood 179 mg/dL (70-110)
[2023-10-26 06:20] LABS: Glucose,Whole Blood 95 mg/dL (70-110)
--- NOTE | 2023-10-26 11:12 | P.PN ---
Subjective Patient is seen in follow-up for acute kidney injury on chronic kidney disease. Started on hemodialysis October 18, 2023. Has permacath. Denies chest pain or shortness of breath. No vomiting or diarrhea. Hemodynamically stable. No active complaints at this time. Scheduled for dialysis today. Vital signs are stable. General: No acute distress. HEENT: Head exam is unremarkable. On nasal cannula. LUNGS: Scattered rhonchi. HEART: Rate and Rhythm are regular. ABDOMEN: Nontender. EXTREMITITES: No edema. Objective - Vital Signs Vital signs: Vital Signs Temp 97.7 F 10/26/23 07:08 Pulse 66 10/26/23 07:08 Resp 16 10/26/23 07:08 BP 108/56 10/26/23 07:08 Pulse Ox 97 10/26/23 07:08 FiO2 40 10/19/23 04:00 Intake & Output 10/25/23 10/26/23 10/26/23 18:59 06:59 18:59 Other: Voiding Method Urinal Toilet Urinal # Voids 5 2 # Bowel Movements 1 1 - Labs CBC & Chem 7: 10/22/23 06:29 10/22/23 06:29 Labs: Abnormal Lab Results - Last 24 Hours (Table) 10/25/23 10/25/23 10/25/23 Range/Units 11:10 16:23 20:21 POC Glucose (mg/dL) 190 H 227 H 179 H (70-110) mg/dL Assessment and Plan Plan: Assessment: 1. Acute kidney injury secondary to ATN. Creatinine over 6 on admission with no improvement. Subsequently started on hemodialysis October 18, 2023. Creatinine in November 2014 was 1.9. No hydronephrosis noted on kidney ultrasound. Left kidney atrophic. 2. Metabolic acidosis secondary to acute kidney injury and IV fluids. Improved with bicarb drip. 3. Hyperkalemia secondary to acute kidney injury, acidosis and lisinopril. Improved with medical management and renal replacement therapy. 4. Hypocalcemia secondary to acute kidney injury. Replaced. Improved. 5. hypertension with chronic kidney disease. Controlled. 6. Acute hypoxic respiratory failure. On nasal cannula. 7. Volume overload. Improved with ultrafiltration. 8. Acute on chronic systolic CHF with ejection fraction of 40 to 45% with mild to moderate tricuspid regurgitation and moderate mitral regurgitation. 9. Anemia. Likely component of chronic kidney disease. On Aranesp. 10. Chronic kidney disease stage IV with creatinine 1.9 in November 2014. Plan: Hemodialysis today. Maintain Bumex. Encouraged oral intake. Phosphorus level 3.0 dated October 24, 2023. store sales manager to set up outpatient hemodialysis.
[2023-10-26 11:37] LABS: Glucose,Whole Blood 200 mg/dL (70-110)
[2023-10-26] MEDS: PANTOPRAZOLE 40 MG TABLET PO SCH (13:05)
[2023-10-26 16:40] LABS: Glucose,Whole Blood 174 mg/dL (70-110)
[2023-10-26 20:38] LABS: Glucose,Whole Blood 138 mg/dL (70-110)
[2023-10-26] MEDS: POTASSIUM CHLORIDE ER 10 MEQ TAB.ER.PRT PO STA (20:38)
[2023-10-26 20:42] VITALS: RESP 18
[2023-10-26 21:02] VITALS: BP 135/61; PULSE 65; TEMP 98.5
--- NOTE | 2023-10-26 21:40 | P.PN ---
Subjective Progress Note Date: 10/26/23 Patient is an 87-year-old male with past medical history significant for COPD, chronic hypoxemic respiratory failure, hypertension, and kidney stones. He is quite upset to be in the hospital at this time, and he wants to go home. He reportedly lives by himself, and a neighbor had called for a wellbeing check yesterday evening. When EMS arrived, he was found to be hypoxic with an SpO2 of in the low 80s on his baseline 3 L/min nasal cannula. EMS then brought the patient to the emergency department. Patient was found to be in acute renal failure and severely hyperkalemic. BMP: Sodium 140, potassium 8.1, chloride 117, serum bicarb 12, BUN 67, creatinine 6.62, glucose 109. Lactic acid 1.1. Magn esium 2.5. Troponin 0.049. NT proBNP 36,500. CBC: WBC count 6.2, hemoglobin 8.8, hematocrit 30.6, platelets 141. Chest x-ray demonstrates cardiomegaly with pulmonary vascular congestion, small bilateral pleural effusions, and interstitial edema. Since his initial ER presentation, his oxygen demands increased and currently on 8 L/min high flow nasal cannula. He is alert and fully oriented, and currently refusing treatment. He is actually telling me that he is going to call a cab and leave this facility. He has not received any correction for his critically elevated potassium yet. ECG showing normal sinus rhythm with first-degree AV block and hyperacute T waves. I have repeatedly explained how critical his situation is, that if he were to leave at this time, he would likely had a cardiac arrest. He called his son, and I did speak to his son on the telephone about his father's critical condition. He is going to come up to the hospital and see his father. His son is encouraging him to stay in the hospital over the phone. After this, the patient has been more receptive to this interview and my questions. He states that he had kidney stones approximately 3 years ago. Denies NSAID use. Denies any trouble urinating such as dysuria, urinary frequency, hematuria, flank pain. Denies having an enlarged prostate. [id number]-rv-oyxy bladder scan reveals a minimal amount of urine, 140 cc. Patient is refusing urinary catheter. Nephrology has been consulted for management of his renal failure and hyperkalemia. As far as the patient's respiratory status. He states that has been getting worse over the last couple days, which he attributes to the heat outside. Denies any infectious-like symptoms such as fever, rhinorrhea, sore throat, cough, sputum production, hemoptysis. Denies any nausea or vomiting, diarrhea, or abdominal pain. He has been traveling by car [id number] to [place] over the last several weeks. Denies chest pain. Denies lower extremity swelling. He is audibly wheezing on examination. Does use inhalers and nebulizer at home, but is unsure of medicati ons or doses. Reportedly a current smoker, approximately 1/2 to 1 ppd. Overall prognosis is guarded. Patient was reevaluated today on 10/16/2023, patient remains in the ICU, no significant improvement noted in his renal function, patient is making urine and responding to Lasix, however his chest x-ray is worsening, and I recommended that we start the patient on Lasix drip today. Nephrology is considering renal replacement therapy on this patient, however I believe the patient is going to be extremely reluctant and he will likely refuse it because I touch bases with him earlier regarding this, and the patient wants to be discharged home. Again it is a very difficult situation, patient is not very compliant, and he is resisting all kinds of treatment. Ultrasound of the kidneys showed no evidence of hydronephrosis. His metabolic acidosis did improve with bicarb drip, and this has been placed on hold for today. His hyperkalemia did improve with treatment. Blood pressure is also under control. Again his chest x-ray is showing worsening of his pulmonary edema. Labs today showed relatively normal WBC count, hemoglobin is 7.5. Platelets are 153. Potassium this morning is 5.0. It was 6.0 earlier. Patient remains on 15 L high flow nasal cannula and O2 saturation 97%. Hemodynamically patient is doing well blood pressure is 123/55, not requiring any pressors. Patient was reevaluated today on 10/17/2023, patient remains in the ICU, remains on Lasix drip, still requiring 15 L high flow nasal cannula, and had to be placed at night on BiPAP 04/01/60%, his Lasix drip is 10 mg an hour. Creatinine is a bit down to 5.77 today, patient was seen by nephrology, and seriously considering renal replacement therapy. In 24 hours, patient had about 1 L negative fluid balance. WBC count is 11.2 hemoglobin 7.4 electrolytes are normal BUN is 79 creatinine 5.77 chest x-ray continues to show pulmonary edema, slightly better compared to the chest x-ray he had on admission Was evaluated today on 10/18/2023, remains in the ICU, last night the patient became extremely agitated, had to be placed on Precedex which is now 0.4 mcg/kg/h. Remains on Lasix at 10 mg/h, putting out urine in the range of 60 to 80 cc/h. Chest x-ray is showing some improvement in his pulmonary edema. However considering the fact that his urine output is not as significant as it should be, I am recommending that we increase the Lasix to 20 mg/h drip. In the meantime patient had to be placed on BiPAP last night 12//40%. Nephrology was considering renal replacement therapy, and that is still being considered. Patient's clinical status remains marginal at best, I have a feeling that the patient may eventually require intubation mechanical ventilation, however we will try to manage for now conservatively unless condition gets any worse. WBC count today is 7 hemoglobin 7.4 potassium is 5.1 BUN is 94 creatinine is up again to 6.31 echocardiogram on this patient showed ejection fraction of 40 to 45% Progress note dated October 19, 2023. The patient is seen today in room 259. He is actually undergoing hemodialysis. Hemodialysis started yesterday. 800 cc was removed yesterday, and 2 L will be removed today, should the blood pressure remained stable. The patient was admitted to the hospital on October 14, with a diagnosis of acute kidney injury, and hyperkalemia, as well as COPD, and CHF. The patient was on 15 L high flow nasal O2, which has been turned down to 13 L. He is getting saline at KVO. He did use BiPAP throughout the night, with settings of 12/6, and 40%. Current laboratory data includes a white count 6.6, hemoglobin 7.1, hematocrit 23.6, and platelet count of 122,000. Sodium 133, potassium 4.6, chloride 99, CO2 28, BUN 72, creatinine 4.19. Glucose is 332. Calcium is 7.8. Chest x-ray shows some interstitial changes, consistent with interstitial edema and pulmonary vascular congestion. Progress note dated October 20, 2023. The patient is seen today in room 259. Clinically, the patient appears to be relatively stable. He is anxious to be discharged. He is on 6 L nasal cannula. He is getting saline at 10 cc an hour. He had hemodialysis yesterday, 2 L of fluid was removed. Not sure about hemodialysis today. The patient had an uneventful night according to the nurses. Current labs include a white count 8.6, hemoglobin 7.8, hematocrit 25.7, and platelet count 148,000. Sodium 134, potassium 4, chlorides 100, CO2 26, BUN 62, creatinine 3.52. Glucose was 195. Calcium 7.7. Chest x-ray is consistent with increasing pulmonary vascular congestion. Progress note dated October 21, 2023. The patient is seen today in room 259. 87-year-old male who is undergoing hemodialysis today. Clinically, the patient appears stable. He is on 3 L of oxygen by nasal cannula. The patient did have hemodialysis yesterday apparently. The plan today is to remove 2 L of fluid. The patient is not receiving any IV fluids. He is not having any respiratory distress. Current labs include a white count 8.3, hemoglobin 8.3, hematocrit 27.2, with a normal platelet count. Sodium 133, potassium 3.9, chlorides 101, CO2 23, BUN 53, and creatinine 3.17. Glucose is 191. Chest x-ray is largely unchanged. Progress note dated October 22, 2023. The patient was seen yesterday in the intensive care unit. Today, the patient is seen in room 453. The patient continues on oxygen, by nasal cannula at 4 L. He is not receiving any IV fluids. The patient's Solu-Medrol, is changed to prednisone, 30 mg a day. The patient appears a bit agitated today. Current labs include a white count of 12.9, hemoglobin 8.7, hematocrit 26.4, and platelet count 135,000. Sodium 134, potassium 4.4, chlorides 98, CO2 25, BUN 44, creatinine 3.3. Glucose is 247. Calcium is 7.8. The patient is seen today October 23, 2023 in follow-up on the regular medical floor. He is currently resting comfortably in bed. Awake and alert in no acute distress. Receiving hemodialysis today with a goal of -1.5 L. He is maintaining good O2 saturations in the 90s on 4 L/min per nasal cannula. Glucos e 141. He remains on DuoNeb inhalations, Symbicort, prednisone taper. The patient is seen today October 24, 2023 on the regular medical floor. He is currently resting comfortably in bed. Awake and alert in no acute distress. Maintaining O2 saturations in the 90s on 4 L/min per nasal cannula. No IV fluids. Next hemodialysis scheduled for Thursday. He is continued on Bumex. He is currently in a -1.1 liter balance. Remains on DuoNeb inhalations, Symbicort, prednisone taper. The patient is seen today October 25, 2023 in follow-up on the regular medical floor. He is resting comfortably in bed. Awake and alert in no acute distress. He denies any worsening shortness of breath, cough or congestion. He is maintaining good O2 saturations in the 90s on 4 L/min per nasal cannula. Continue on DuoNeb inhalations, Symbicort, prednisone taper. Remains on oral diuretics. Glucose 146. On 10/26/2023, patient is being seen for a follow-up. This morning, the patient is stable on 40 subluxable nasal cannula with a pulse ox of 98%. Afebrile and hemodynamically stable. No new labs are available from today. Labs most recent was on 10/22/2023. The patient is noted COPD with chronic hypoxic respiratory failure, hypertension and the patient was admitted with hypoxic respiratory failure and shortness of breath. The patient also had a acute kidney injury and currently he is on hemodialysis. Nephrology is on the case regarding the acute on top of chronic kidney injury. He has a permacath in place. No significant shortness of breath. He will be scheduled to undergo hemodialysis today and possibly will get discharged following that. He is maintained on Bumex. Electrolytes to be monitored. Objective - Vital Signs Vital signs: Vital Signs Temp 97.7 F 10/26/23 07:08 Pulse 66 10/26/23 07:08 Resp 16 10/26/23 07:08 BP 108/56 10/26/23 07:08 Pulse Ox 97 10/26/23 07:08 FiO2 40 10/19/23 04:00 Intake & Output 10/25/23 10/26/23 10/26/23 18:59 06:59 18:59 Other: Voiding Method Urinal Toilet Toilet Urinal Urinal # Voids 5 2 # Bowel Movements 1 1 - Exam GENERAL EXAM: Alert, frail 87-year-old male, on 4 L nasal cannula, in no appa rent distress. HEAD: Normocephalic. EYES: Normal reaction of pupils, equal size. NOSE: Clear with pink turbinates. THROAT: No erythema or exudates. NECK: No masses, no JVD. Right jugular dialysis catheter in place. CHEST: No chest wall deformity. LUNGS: Equal air entry with few scattered rhonchi. CVS: S1 and S2 normal with no audible murmur, regular rhythm. ABDOMEN: No hepatosplenomegaly, normal bowel sounds, no guarding or rigidity. SPINE: No scoliosis or deformity SKIN: No rashes CENTRAL NERVOUS SYSTEM: No focal deficits, tone is normal in all 4 extremities. EXTREMITIES: There is no peripheral edema. No clubbing, no cyanosis. Peripheral pulses are intact. - Labs CBC & Chem 7: 10/22/23 06:29 10/26/23 16:55 Labs: Abnormal Lab Results - Last 24 Hours (Table) 10/25/23 10/25/23 10/26/23 Range/Units 16:23 20:21 11:35 POC Glucose (mg/dL) 227 H 179 H 200 H (70-110) mg/dL Assessment and Plan Plan: Acute on chronic hypoxemic respiratory failure secondary to fluid overload, and acute COPD exacerbation, clinically stable currently on 4 L of oxygen by nasal c annula Acute exacerbation of chronic systolic congestive heart failure Echocardiogram done on 10/15/2023 shows a mild impairment of LV function with an ejection fraction of 40 to 45% and the patient has a small circumferential pericardial effusion. Patient also has moderate mitral regurgitation. Acute on top of chronic kidney injury/failure, required initiation of hemodialysis on October 18, 2023 Acute severe non-anion gap metabolic acidosis, recovered Severe hyperkalemia, recovered History of chronic obstructive pulmonary disease Chronic hypoxemic respiratory failure, on home O2 between 2 to 3 L/min Current and ongoing tobacco dependence Anemia of chronic disease History of kidney stones Plan: Stable and on 4 L nasal cannula, titrate oxygen flow to maintain saturation above 90% Titrate down the FiO2 as tolerated Continue bronchodilators Continue diuretics Hemodialysis today Discharge planning is in progress We will continue to follow
== END 2023-10-26 21:05 | disposition home health service (06) | DRG 673 ==
LOC: EC 22:00 → 3SCARD 10-15 02:15 → 2SICU 10-15 09:26 → 4SSUR 10-21 17:49
PROVIDERS: ADMIT Hospitalist; ATTEND Hospitalist
PROC: 3E0F7SF Introduction of Other Gas into Respiratory Tract, Via Natural or Artificial Opening (ICD-10-PCS; 2023-10-15)
PROC: 5A09557 Assistance with Respiratory Ventilation, Greater than 96 Consecutive Hours, Continuous Positive Airway Pressure (ICD-10-PCS; 2023-10-15)
PROC: 5A1D70Z Performance of Urinary Filtration, Intermittent, Less than 6 Hours Per Day (ICD-10-PCS; 2023-10-18)
PROC: 06HM33Z Insertion of Infusion Device into Right Femoral Vein, Percutaneous Approach (ICD-10-PCS; 2023-10-18)
PROC: B54BZZA Ultrasonography of Right Lower Extremity Veins, Guidance (ICD-10-PCS; 2023-10-18)
PROC: B5181ZA Fluoroscopy of Superior Vena Cava using Low Osmolar Contrast, Guidance (ICD-10-PCS; 2023-10-22)
PROC: 06PY33Z Removal of Infusion Device from Lower Vein, Percutaneous Approach (ICD-10-PCS; principal; 2023-10-22 14:05)
PROC: 0JH63XZ Insertion of Tunneled Vascular Access Device into Chest Subcutaneous Tissue and Fascia, Percutaneous Approach (ICD-10-PCS; 2023-10-22 14:05)
PROC: B549ZZA Ultrasonography of Inferior Vena Cava, Guidance (ICD-10-PCS; 2023-10-22 14:05)
PROC: 02HV33Z Insertion of Infusion Device into Superior Vena Cava, Percutaneous Approach (ICD-10-PCS; 2023-10-22 14:05)
DX: N17.0 Acute kidney failure with tubular necrosis (principal); I50.23 Acute on chronic systolic (congestive) heart failure; J96.21 Acute and chronic respiratory failure with hypoxia; J96.22 Acute and chronic respiratory failure with hypercapnia; I13.0 Hypertensive heart and chronic kidney disease with heart failure and stage 1 through stage 4 chronic kidney disease, or unspecified chronic kidney disease; J44.0 Chronic obstructive pulmonary disease with (acute) lower respiratory infection; J44.1 Chronic obstructive pulmonary disease with (acute) exacerbation; I42.9 Cardiomyopathy, unspecified; I31.39 Other pericardial effusion (noninflammatory); R64 Cachexia; Z68.1 Body mass index [BMI] 19.9 or less, adult; N18.4 Chronic kidney disease, stage 4 (severe); E87.5 Hyperkalemia; E83.51 Hypocalcemia; J44.9 Chronic obstructive pulmonary disease, unspecified; Z87.442 Personal history of urinary calculi; D63.1 Anemia in chronic kidney disease; I45.10 Unspecified right bundle-branch block; D69.6 Thrombocytopenia, unspecified; E11.22 Type 2 diabetes mellitus with diabetic chronic kidney disease; F17.210 Nicotine dependence, cigarettes, uncomplicated; I08.1 Rheumatic disorders of both mitral and tricuspid valves; I44.0 Atrioventricular block, first degree; Z79.899 Other long term (current) drug therapy; Z91.199 Patient's noncompliance with other medical treatment and regimen due to unspecified reason; Z99.2 Dependence on renal dialysis; Z99.81 Dependence on supplemental oxygen; R01.1 Cardiac murmur, unspecified; R54 Age-related physical debility; X58.XXXA Exposure to other specified factors, initial encounter; T46.4X5A Adverse effect of angiotensin-converting-enzyme inhibitors, initial encounter
CPT/HCPCS: 36415; 36558; 51798; 71045; 71046; 76770; 76937; 77001; 80048; 80053; 81001; 82306; 82330; 82607; 82728; 82746; 83540; 83550; 83605; 83735; 83880; 84100; 84132; 84484; 85025; 85027; 85610; 86706; 87340; 87636; 90935; 93005; 93306; 94640; 94660; 94760; 96361; 96365; 96368; 96375; 96376; 99211; 99291